=== PATIENT | male | born 1945 | race Caucasian/White ===

== ENCOUNTER 2018-04-02 14:11 | Inpatient (IN) | payer OTHER ==
[~2018-04-02] VITALS: Ht 177.8 cm; Wt 64.9 kg
[~2018-04-02 14:11] MED LIST: ALBUAER2 INH; ASPI-320 PO; ATOR-24 PO; CHOL100010 PO; DOCU100C31 PO; FLUT1INH INH; LEVO25TA PO; LISI-729 PO; LORA10TA6 PO; LTHSR/300 PO; MELATAB2 PO; OXYC-57 PO; PANT40TA2 PO; RXC5 PO; SENN-61 PO; TIOTCAP INH; UMEC1INH INH
[2018-04-02] MEDS ORDERED: ACETAMINOPHEN 325 MG TAB PO PRN (15:45)
[2018-04-02 15:52] VITALS: BP 163/75; PULSE 67; TEMP 36.7; O2SAT 96
[2018-04-02 16:14] LABS: BASO % 0.2 %; BASO ABS # 0.02 K/uL (0-0.2); EOS % 3.7 %; EOS ABS # 0.34 K/uL (0-0.5); HEMOGLOBIN 13.2 g/dL (14.0-18.0); IG# 0.03 K/uL (0.00-0.02); MEAN CORPUSCULAR HEMOGLOBIN 29.8 pg (25-34); MEAN CORPUSCULAR HGB CONC 33.8 g/dl (32-36); MEAN PLATELET VOLUME 8.6 fL (7.4-10.4); MONO % 9.5 %; MONO ABS # 0.88 K/uL (0.11-0.59); NEUT % 60.3 %; NEUT ABS # 5.55 K/uL (1.4-6.5); PLATELET COUNT 160 K/uL (130-400); RED CELL DISTRIBUTION WIDTH CV 15.1 % (11.5-14.5); RED CELL DISTRIBUTION WIDTH SD 48.8 fL (36.4-46.3); WHITE BLOOD COUNT 9.22 K/uL (4.8-10.8)
[2018-04-02 16:35] VITALS: BP 163/75; PULSE 74; TEMP 36.3; O2SAT 96; Ht 177.8 cm; Wt 64.9 kg
[2018-04-02 16:41] LABS: ALBUMIN 3.6 gm/dl (3.4-5.0); ALT/SGPT 16 U/L (12-78); AST/SGOT 16 U/L (15-37); BLOOD UREA NITROGEN 19 mg/dl (7-18); CALCIUM 9.8 mg/dl (8.5-10.1); CARBON DIOXIDE 25 mmol/L (21-32); CREATININE 0.74 mg/dl (0.60-1.40); GLUCOSE 88 mg/dl (70-99); POTASSIUM 4.6 mmol/L (3.5-5.1); SODIUM 139 mmol/L (136-145)
[2018-04-02 16:46] LABS: ALKALINE PHOSPHATASE 101 U/L (45-117); TOTAL PROTEIN 7.2 gm/dl (6.4-8.2)
[2018-04-02] MEDS ORDERED: OMEP20TA PO (17:46)
[2018-04-02] MEDS ORDERED: AMLO2.5T PO ×2 (17:46)
--- NOTE | 2018-04-02 18:05 | DIAGNOSTIC IMAGING REPORT ---
CHEST ONE VIEW PORTABLE CLINICAL HISTORY: 72 years-old Male presenting with cough. TECHNIQUE: Portable upright AP view of the chest was obtained. COMPARISON: 07/06/2016. FINDINGS: Right subclavian pacer with leads to the right atrium and right ventricular apex. A spinal stimulator terminates at the level of the mid thoracic spine. Surgical clips project over the epigastrium. Atherosclerosis of aortic arch. Cardiac silhouette normal in size. Mild pulmonary vascular prominence. Heterogeneity of lung parenchyma with slight increased density at the right paramediastinal apex, similar to prior. No new focal infiltrate. No large effusion or pneumothorax. Continued worsening of advanced destructive or degenerative changes of the right glenohumeral joint. Upper abdomen normal. IMPRESSION: 1. Heterogeneity of lung parenchyma could suggest underlying emphysema. Vague focal infiltrate at the right paramediastinal apex may relate to overlapping bony structures as this is fairly similar to the prior exam. No new focal infiltrate to suggest acute cardiopulmonary disease. 2. Continued worsening of advanced destructive or degenerative changes of the right glenohumeral joint. Electronically signed by: Laith Schmidt M.D. 04/02/2018 6:03 PM Dictated Date/Time: 04/02/2018 6:00 PM
[2018-04-02] MEDS ORDERED: ENOXAPARIN 40 MG/0.4 ML SYR SQ ONE (19:00)
--- NOTE | 2018-04-02 19:09 | History and Physical ---
History & Physical Date & Time of Service: April 02, 2018 ~ 16:00 Chief Complaint: Chest Pain Primary Care Physician: Margoth Kaur M.D. History of Present Illness 72-year-old male who was referred for direct admission by Dr. Padron for evaluation of chest pain. Patient is difficult to obtain history from, has several complaints, and frequently mentions narcotic pain medicines during the exam. Patient had been on chronic Percocet for back pain until November of this year when he violated his pain medication management contract with [facility]. He reports that since his pain medications were discontinued he has had progressive weakness and difficulty tolerating activities of daily living. During my time with the patient, he provided me with notarized documentation threatening malpractice suits if he is not provided with narcotics. After review of patient's outpatient records, he has threatened several physicians on several occasions if narcotic prescriptions have not been provided to him. He was also given a dismissal letter from the [facility] on 03/19/18. Patient reports he has had several episodes of nausea and vomiting over the past 6 weeks. He was evaluated in the outpatient GI clinic recently and was offered an EGD however whenever he was told that this was an outpatient procedure, he refused and wanted it to be done inpatient while hospitalized. He reports a persistent productive cough for the past several months. He was given prescriptions for Levaquin however did not complete any of the courses. He reports ongoing left-sided chest pain for the past 3 weeks. He reports pain is persistent and radiates in and down the left arm. Over the past few nights, he has been awoken out of sleep at 2 AM with severe left-sided chest pain. He denies any other associated symptoms. Again, details are difficult to obtain from the patient as he frequently redirects the conversation to receive narcotic medications. Past Medical/Surgical History Medical Problems: (1) Bipolar 1 disorder Status: Chronic (2) CAD (coronary artery disease) Permanent Comment: s/p RCA stent Status: Chronic (3) Chronic back pain Status: Chronic (4) COPD (chronic obstructive pulmonary disease) Status: Chronic (5) DM type 2 (diabetes mellitus, type 2) Status: Chronic (6) Dyslipidemia Status: Chronic (7) History of hodgkin's lymphoma Permanent Comment: s/p radiation Status: Chronic (8) History of kidney cancer Permanent Comment: s/p partial nephrectomy Status: Chronic (9) Hyperparathyroidism Status: Chronic (10) Hypertension Status: Chronic (11) Hypothyroidism Status: Chronic (12) Incomplete paraplegia Status: Chronic (13) Nondisplaced bimalleolar fracture of left ankle Status: Resolved (14) Pacemaker Status: Chronic (15) Pulmonary nodule Status: Chronic (16) Radiation induced myelitis Status: Chronic (17) Symptomatic bradycardia Status: Chronic (18) Vitamin D deficiency Status: Chronic Surgical Problems: (1) H/O partial nephrectomy Status: Chronic (2) S/p abdominal wall deep tumor excision Status: Chronic (3) S/P coronary artery stent placement Permanent Comment: RCA Status: Chronic (4) S/P femoral-popliteal bypass surgery Status: Chronic (5) S/P placement of cardiac pacemaker Status: Chronic (6) S/P splenectomy Status: Chronic Family History Diabetes mellitus FATHER MOTHER FH: heart disease FATHER MOTHER Stroke FATHER Social History Smoking Status: Current Every Day Smoker Alcohol Use: occasionally (However outpatient documentation reports heavier use ) Immunizations History of Influenza Vaccine: Yes Influenza Vaccine Date: Aug 08, 2017 History of Tetanus Vaccine?: Yes Tetanus Immunization Date: Nov 11, 2010 History of Pneumococcal: Yes Pneumococcal Date: Nov 10, 2016 Allergies Coded Allergies: Shellfish (Verified Allergy, Severe, shortness of breath , 08/26/16) STATES OK WITH CT CONTRAST Sulfa Antibiotics (Verified Allergy, Intermediate, severe rash, 08/26/16) Nitroglycerin (Verified Adverse Reaction, Mild, HEADACHE, 08/26/16) Prednisone (Verified Adverse Reaction, Mild, confusion, 08/26/16) Home Medications Scheduled Amlodipine (Norvasc), 2.5 MG PO DAILY Aspirin (Aspirin EC Low Dose), 81 MG PO DAILY Atorvastatin (Lipitor), 40 MG PO QAM Cholecalciferol (Vitamin D), 1,000 INTER.UNIT PO WK Docusate Sodium (Docusate Sodium), 100 MG PO BID Levothyroxine Sodium (Synthroid), 25 MCG PO QAM [place] Carbonate ([place] Carbonate), 300 MG PO HS Loratadine (Claritin), 1 TAB PO QAM Omeprazole (Omeprazole), 1 TAB PO BID Tiotropium [place] (Spiriva Handihaler), 1 CAP INH DAILY Scheduled PRN Senna (Senokot), 1 TAB PO BID PRN for Constipation Review of Systems ROS per HPI, all other systems reviewed and negative - note that details were difficult to obtain as stated in HPI Physical Exam Vital Signs Date Time Temp Pulse Resp B/P (MAP) Pulse Ox O2 Delivery O2 Flow Rate FiO2 04/02/18 16:35 36.3 74 19 163/75 96 Room Air 04/02/18 15:52 36.7 67 17 163/75 (104) 96 Room Air General Appearance: WD/WN, no apparent distress Head: normocephalic, atraumatic Eyes: normal inspection, EOMI, sclerae normal ENT: hearing grossly normal, + pertinent finding (Mucous membranes moist) Neck: supple, no JVD, trachea midline Respiratory/Chest: no respiratory distress, + crackles (Right lung base) Cardiovascular: regular rate, rhythm, no edema, normal peripheral pulses Abdomen/GI: normal bowel sounds, non tender, soft, no organomegaly Extremities/Musculoskelatal: normal inspection, no calf tenderness, normal capillary refill Neurologic/Psych: alert, normal mood/affect, oriented x 3, + pertinent finding (Weakness BLE, chronic, history of paraplegia; no gross focal deficits noted) Skin: normal color, warm/dry Diagnostics Laboratory Results Results Past 24 Hours Test 04/02/18 15:58 04/02/18 17:50 Range/Units White Blood Count 9.22 4.8-10.8 K/uL Red Blood Count 4.43 4.7-6.1 M/uL Hemoglobin 13.2 14.0-18.0 g/dL Hematocrit 39.0 42-52 % Mean Corpuscular Volume 88.0 80-100 fL Mean Corpuscular Hemoglobin 29.8 25-34 pg Mean Corpuscular Hemoglobin Concent 33.8 32-36 g/dl Platelet Count 160 130-400 K/uL Mean Platelet Volume 8.6 7.4-10.4 fL Neutrophils (%) (Auto) 60.3 % Lymphocytes (%) (Auto) 26.0 % Monocytes (%) (Auto) 9.5 % Eosinophils (%) (Auto) 3.7 % Basophils (%) (Auto) 0.2 % Neutrophils # (Auto) 5.55 1.4-6.5 K/uL Lymphocytes # (Auto) 2.40 1.2-3.4 K/uL Monocytes # (Auto) 0.88 0.11-0.59 K/uL Eosinophils # (Auto) 0.34 0-0.5 K/uL Basophils # (Auto) 0.02 0-0.2 K/uL RDW Standard Deviation 48.8 36.4-46.3 fL RDW Coefficient of Variation 15.1 11.5-14.5 % Immature Granulocyte % (Auto) 0.3 % Immature Granulocyte # (Auto) 0.03 0.00-0.02 K/uL Sodium Level 139 136-145 mmol/L Potassium Level 4.6 3.5-5.1 mmol/L Chloride Level 108 98-107 mmol/L Carbon Dioxide Level 25 21-32 mmol/L Anion Gap 6.0 3-11 mmol/L Blood Urea Nitrogen 19 7-18 mg/dl Creatinine 0.74 0.60-1.40 mg/dl Estimated GFR () 108.3 Estimated GFR (Non- 93.5 BUN/Creatinine Ratio 25.8 10-20 Random Glucose 88 70-99 mg/dl Calcium Level 9.8 8.5-10.1 mg/dl Total Bilirubin 0.3 0.2-1 mg/dl Aspartate Amino Transf (AST/SGOT) 16 15-37 U/L Alanine Aminotransferase (ALT/SGPT) 16 12-78 U/L Alkaline Phosphatase 101 45-117 U/L Troponin I < 0.015 0-0.045 ng/ml Total Protein 7.2 6.4-8.2 gm/dl Albumin 3.6 3.4-5.0 gm/dl Globulin 3.6 2.5-4.0 gm/dl Albumin/Globulin Ratio 1.0 0.9-2 Microbiology Results 04/02/18 Gram Stain, Ordered Pending 04/02/18 Sputum Culture, Ordered Pending Diagnostic Radiology CXR IMPRESSION: 1. Heterogeneity of lung parenchyma could suggest underlying emphysema. Vague focal infiltrate at the right paramediastinal apex may relate to overlapping bony structures as this is fairly similar to the prior exam. No new focal infiltrate to suggest acute cardiopulmonary disease. 2. Continued worsening of advanced destructive or degenerative changes of the right glenohumeral joint. Impression Assessment and Plan CHEST PAIN, HISTORY CAD SA NODE DYSFUNCTION S/P PACER -Patient sent for direct admission by referral of Dr. Padron for evaluation of chest pain -History of CAD S/P RCA stent -Patient reporting persistent left-sided chest pain with radiation into the left shoulder/arm 3 weeks with acute worsening of the pain over the past 3 nights waking him from sleep -Troponin negative, cardiology planning on nuclear stress test tomorrow -Continue aspirin and statin -Pacer interrogation CHRONIC PAIN -Patient's pain medication use agreement with [facility] was violated in November 2017 and prescriptions have subsequently been stopped -Reviewed the PDMP, last prescription filled by the patient was in November 2017 -During my exam the patient, he frequently redirects the conversation to receiving pain medications and provided notarized documentation threatening malpractice lawsuits if he does not receive narcotics -As per [facility], he threatened several physicians on several occasions regarding pain medication prescriptions -During my exam, patient does not appear to be in severe pain, he is resting in bed in no acute distress, sitting up without difficulty and twisting around to reach things off the bed -Due to patient's exhibited behaviors, would like to avoid prescribing narcotic pain medications and utilize nonnarcotic options -Pain management consult -Service excellence contacted who met with the patient - please see their note for further details RECURRENT NAUSEA/VOMITING -Patient was evaluated by GI as an outpatient, and was offered an EGD however refused to have as it done as an outpatient -Will have GI evaluate the patient while admitted HISTORY RECURRENT PNEUMONIA, LIKELY ASPIRATION -No clear infiltrate on chest x-ray today -Saturating well on room air, afebrile, no leukocytosis -Will hold on antibiotics for now HYPERTENSION -Continue amlodipine COPD -No signs of acute exacerbation, continue home inhalers HYPOTHYROIDISM -Continue levothyroxine BIPOLAR -Continue lithium HISTORY OF RADIATION MYELOPATHY, PARAPLEGIA DVT PROPHYLAXIS -SQ Lovenox DISPOSITION -In my clinical judgment this beneficiary meets acute admission criteria, established by CMS, that includes being hospitalized through two midnights. 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, history of CAD status post RCA stent placement, sick sinus syndrome status post pacemaker placement Chronic low back pain, history of narcotic abuse/dependency Sent from cardiology office-as patient complained of left-sided chest pain with radiation to left arm Will be monitored in telemetry, serial cardiac marker Possible nuclear cardiac stress test in the morning Chronic narcotic pain meds dependency: Patient violated pain management contract in clinic multiple times Noted to have destructive behavior in clinic demanding for narcotic pain medications Urine tox screen ordered Pain management consulted Please refer to further documentation by Elvie WARNER for discussion of other chronic issues Vivienne Merrill MD Advanced Directives Existing Living Will: Yes 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
[2018-04-02] MEDS: TRAMADOL HCL 50 MG TAB PO PRN (19:33)
[2018-04-02] MEDS: PANTOprazole SOD 40 MG TAB PO SCH (19:35)
[2018-04-02] MEDS: DOCUSATE SODIUM 100 MG CAP PO SCH (19:36)
[2018-04-02 20:00] VITALS: O2SAT 96
[2018-04-02 20:17] VITALS: BP 160/61; PULSE 60; TEMP 36.4; O2SAT 95
[2018-04-02] MEDS: LITHIUM CARBONATE SR 300 MG TAB (LITHOBID) PO SCH (20:44)
[2018-04-02 23:58] VITALS: BP 150/69; PULSE 63; TEMP 36.7; O2SAT 95
[2018-04-03] VITALS (7 sets, daily range): BP systolic 130–159; BP diastolic 45–75; PULSE 63–77; TEMP 36.4–36.7; O2SAT 91–96
[2018-04-03] MEDS: TRAMADOL HCL 50 MG TAB PO PRN ×4 (01:24→19:43)
[2018-04-03] MEDS: LEVOTHYROXINE 25 MCG TAB PO SCH (06:14)
[2018-04-03 06:32] LABS: HEMATOCRIT 40.3 % (42-52); HEMOGLOBIN 13.2 g/dL (14.0-18.0); MEAN CELL VOLUME 88.2 fL (80-100); MEAN CORPUSCULAR HEMOGLOBIN 28.9 pg (25-34); MEAN CORPUSCULAR HGB CONC 32.8 g/dl (32-36); PLATELET COUNT 164 K/uL (130-400); RED CELL DISTRIBUTION WIDTH CV 15.2 % (11.5-14.5); RED CELL DISTRIBUTION WIDTH SD 48.6 fL (36.4-46.3); WHITE BLOOD COUNT 6.46 K/uL (4.8-10.8)
[2018-04-03 06:49] LABS: BLOOD UREA NITROGEN 18 mg/dl (7-18); CALCIUM 9.7 mg/dl (8.5-10.1); CARBON DIOXIDE 26 mmol/L (21-32); CREATININE 0.76 mg/dl (0.60-1.40); GLUCOSE 85 mg/dl (70-99); POTASSIUM 4.3 mmol/L (3.5-5.1); SODIUM 138 mmol/L (136-145)
[2018-04-03] MEDS: AMLODIPINE BESYLATE 5 MG TAB PO SCH (07:34)
[2018-04-03] MEDS: LORATADINE 10 MG TAB PO SCH (07:42)
[2018-04-03] MEDS: TIOTROPIUM BROMIDE 5 PUFF/90 MCG INH INH SCH (07:42)
[2018-04-03] MEDS: DOCUSATE SODIUM 100 MG CAP PO SCH ×2 (07:43→20:57)
[2018-04-03] MEDS: ASPIRIN 81 MG ECTAB PO SCH (07:43)
[2018-04-03] MEDS: ATORVASTATIN 40 MG TAB PO SCH (07:43)
[2018-04-03] MEDS: PANTOprazole SOD 40 MG TAB PO SCH ×2 (07:43→20:58)
[2018-04-03] MEDS: PROMETHAZINE HCL INJ 12.5 MG in SODIUM CHLORIDE 0.9% 50ML 50 ML IV PRN (08:42)
[2018-04-03] MEDS: ENOXAPARIN 40 MG/0.4 ML SYR SQ SCH (08:43)
[2018-04-03] MEDS ORDERED: CHOLECALCIFEROL 1000 INTER.UNIT TAB PO SCH (09:00)
--- NOTE | 2018-04-03 09:37 | Cardiology Follow-Up ---
Subjective Date of Service: April 03, 2018. Pt evaluation today including: conversation w/ patient, physical exam, chart review, lab review, review of studies, review of inpatient medication list History of Present Illness This morning the patient reports some mild chest and left arm discomfort. He does not describe this as pain. He states he intensity is about a 2. Over the course of the evening and some discomfort in his legs which responded to tramadol. He has continued to have nausea but no vomiting. Social History Smoking Status: Current Every Day Smoker History of Alcohol Use: Yes (snato, states 2oz qo week) Objective Vital Signs Past 12 Hours Date Time Temp Pulse Resp B/P (MAP) Pulse Ox O2 Delivery O2 Flow Rate FiO2 04/03/18 08:00 Room Air 04/03/18 07:07 36.4 63 20 159/63 (95) 93 Room Air 04/03/18 04:00 96 Room Air 04/03/18 03:22 36.6 69 16 156/75 (102) 94 Room Air 04/03/18 00:00 96 Room Air 04/02/18 23:58 36.7 63 16 150/69 (96) 95 Room Air Last Recorded Weight-Kilograms: 63.800 Physical Exam The patient is alert and oriented. Mood and affect appeared normal. He answered all questions appropriately. HEENT: Pupils are equal and reactive to light and accommodation. Extraocular movements are intact. The sclerae are anicteric. Neuro: Cranial nerves intact Neck: Patient's neck is supple. He has palpable carotid pulses bilaterally without bruits on auscultation. There is no evidence of jugular venous distention. The thyroid is not enlarged. Lungs: Some crackles at the bases bilaterally with upper airway sounds and expiratory wheezing Cardiac: Heart demonstrates a regular rate and rhythm. Normal S1 and S2. No murmurs on examination. Pulses: The patient has palpable radial pulses bilaterally that are equal in intensity Extremities: There was no evidence of hypoperfusion. There is no cyanosis or clubbing. There is no edema. Skin: I did not appreciate any rashes on examination today. Data Laboratory Results: Last 24 Hours Test 04/02/18 15:58 04/02/18 17:50 04/02/18 21:57 04/03/18 05:47 White Blood Count 9.22 K/uL 6.46 K/uL Red Blood Count 4.43 M/uL 4.57 M/uL Hemoglobin 13.2 g/dL 13.2 g/dL Hematocrit 39.0 % 40.3 % Mean Corpuscular Volume 88.0 fL 88.2 fL Mean Corpuscular Hemoglobin 29.8 pg 28.9 pg Mean Corpuscular Hemoglobin Concent 33.8 g/dl 32.8 g/dl Platelet Count 160 K/uL 164 K/uL Mean Platelet Volume 8.6 fL 9.0 fL Neutrophils (%) (Auto) 60.3 % Lymphocytes (%) (Auto) 26.0 % Monocytes (%) (Auto) 9.5 % Eosinophils (%) (Auto) 3.7 % Basophils (%) (Auto) 0.2 % Neutrophils # (Auto) 5.55 K/uL Lymphocytes # (Auto) 2.40 K/uL Monocytes # (Auto) 0.88 K/uL Eosinophils # (Auto) 0.34 K/uL Basophils # (Auto) 0.02 K/uL RDW Standard Deviation 48.8 fL 48.6 fL RDW Coefficient of Variation 15.1 % 15.2 % Immature Granulocyte % (Auto) 0.3 % Immature Granulocyte # (Auto) 0.03 K/uL Sodium Level 139 mmol/L 138 mmol/L Potassium Level 4.6 mmol/L 4.3 mmol/L Chloride Level 108 mmol/L 107 mmol/L Carbon Dioxide Level 25 mmol/L 26 mmol/L Anion Gap 6.0 mmol/L 5.0 mmol/L Blood Urea Nitrogen 19 mg/dl 18 mg/dl Creatinine 0.74 mg/dl 0.76 mg/dl Estimated GFR () 108.3 107.1 Estimated GFR (Non- 93.5 92.4 BUN/Creatinine Ratio 25.8 23.7 Random Glucose 88 mg/dl 85 mg/dl Calcium Level 9.8 mg/dl 9.7 mg/dl Total Bilirubin 0.3 mg/dl Aspartate Amino Transf (AST/SGOT) 16 U/L Alanine Aminotransferase (ALT/SGPT) 16 U/L Alkaline Phosphatase 101 U/L Troponin I < 0.015 ng/ml < 0.015 ng/ml < 0.015 ng/ml Total Protein 7.2 gm/dl Albumin 3.6 gm/dl Globulin 3.6 gm/dl Albumin/Globulin Ratio 1.0 Urine Opiates Screen NEG Urine Methadone, Qualitative NEG Urine Barbiturates NEG Urine Phencyclidine (PCP) Level NEG Ur Amphetamine/Methamphetamine NEG MDMA (Ecstasy) Screen NEG Urine Benzodiazepines Screen NEG Urine Cocaine Metabolite NEG Urine Marijuana (THC) POS Prothrombin Time 10.0 SECONDS Prothromb Time International Ratio 1.0 Est Creatinine Clear Calc Drug Dose 81.6 ml/min Imaging: Chest x-ray the time admission did not demonstrate any acute process. EKG: Av sequential pacing Telemetry reviewed: Av sequential pacing. Assessment and Plan 1. Chest pain: I think we can discount his chronic chest pain is cardiac in nature. He has had very extended episodes over several days without any elevation in his cardiac biomarkers. Alternate etiologies should be explored include include esophageal dysfunction or possibly stricture. He also has a lot of nausea and vomiting and GI etiology would be the next most likely. 2. Coronary artery disease: Patient has a history of remote stenting to the right coronary artery. We are planning on perfusion imaging today. The patient can likely be discharged from a cardiac standpoint after his perfusion imaging. We could follow up in the outpatient setting. However, if he will be requiring additional studies as an inpatient I will follow up and make recommendations based on the results. Patient should be continued on his daily aspirin and high-dose atorvastatin. 3. Bradycardia: Normally functioning dual-chamber permanent pacemaker. Patient does appear to be pacer dependent. ADDENDUM: It appears that he will not get his nuclear study today due to scheduling issues. Given his extended episodes of chest pain and normal biomarkers, his current symptoms are not related to cardiac ischemia. I think his perfusion study can be deferred to the outpatient setting unless an opening arises while he is here. He does not have any other concerning cardiac symptoms. No evidence of cardiac issues on exam. I think is is safe for him to have an endoscopy without any additional cardiac testing.
--- NOTE | 2018-04-03 10:47 | Gastrointestinal Consultation ---
Gastrointestinal Consultation Date of Consultation: April 03, 2018 Attending Physician: Dr. Merrill Consulting Physician: Dr. Cain Reason for Consultation: Nausea, vomiting History of Present Illness Patient is a 72 year old male patient of Dr. Kaur with a hx of bipolar disease, DM-2, CAD, COPD, kidney cancer, hyperparathyroidism, hypothyroidism who presented to the ED yesterday for chest pain. GI is consulted for nausea/ vomiting. Regarding the CP, cardiac markers are non elevated and EKG w/o changes. He is scheduled for a Lexiscan today. Regarding nausea/vomiting, he tells me that he has had this for about 2 months, and that he also has dysphagia. He was seen and evaluated recently in GI clinic by Raúl Michael and refused EGD at that time. He is now willing to undergo EGD. He tells me that the difficulty swallowing pills causes vomiting and that he vomited about once weekly for a few months then daily last week. He also reports several episodes of vomiting last night. He denies any hematemesis, melena or hematochezia. Hb is stable at 13. His most recent EGD was in 2012 for chest pain by Dr. Gregory with gastritis. Past Medical/Surgical History Medical Problems: (1) Bilateral lower extremity edema Status: Acute (2) Chronic pain of lower extremity Status: Acute (3) Precordial chest pain Status: Acute Past Medical History: 1. Bipolar 2. Hypothyroidism 3. Hyperparathyroidism 4. CAD S/P RCA stent 5. Chronic back pain 6. DM-2 7. Hyperlipidemia 8. COPD 9. Hodgkin's lymphoma 10. Right kidney cancer 11. Incomplete paraplegia 12. Pulmonary nodule 13. Bradycardia S/P cardiac pacemaker insertion 14. Vit D deficiency Past Surgical History: (1) H/O partial right nephrectomy (2) S/p abdominal wall deep tumor excision (3) S/P coronary artery stent placement Permanent Comment: RCA (4) S/P femoral-popliteal bypass surgery (5) S/P placement of cardiac pacemaker (6) S/P splenectomy Family History Diabetes mellitus FATHER MOTHER FH: heart disease FATHER MOTHER Stroke FATHER Social History Smoking Status: Current Every Day Smoker Housing Status: lives alone Allergies Coded Allergies: Shellfish (Verified Allergy, Severe, shortness of breath , 08/26/16) STATES OK WITH CT CONTRAST Sulfa Antibiotics (Verified Allergy, Intermediate, severe rash, 08/26/16) Nitroglycerin (Verified Adverse Reaction, Mild, HEADACHE, 08/26/16) Prednisone (Verified Adverse Reaction, Mild, confusion, 08/26/16) Current Medications Home Meds and Scripts Medications Dose Route/Sig Max Daily Dose Days Date Category Omeprazole 20 Mg Tab 1 Tab PO BID 90 04/02/18 Reported Norvasc (Amlodipine Besylate) 2.5 Mg Tab 2.5 Mg PO DAILY 04/02/18 Reported Aspirin EC Low Dose (Aspirin) 81 Mg Ectab 81 Mg PO DAILY 06/07/16 Reported Claritin (Loratadine) 10 Mg Tab 1 Tab PO QAM 30 06/07/16 Reported Senokot (Senna) 8.6 Mg Tab 1 Tab PO BID PRN 06/07/16 Reported Vitamin D (Cholecalciferol) 1,000 Inter.unit Tab 1,000 Inter.unit PO WK 02/29/16 Reported Lipitor (Atorvastatin Calcium) 40 Mg Tab 40 Mg PO QAM 02/29/16 Reported [place] Carbonate 300 Mg Cap 300 Mg PO HS 09/16/15 Reported Docusate Sodium 100 Mg Cap 100 Mg PO BID 02/12/15 Reported Spiriva Handihaler (Tiotropium [place]) 18 Mcg/ Aerp 1 Cap INH DAILY 02/12/15 Reported Synthroid (Levothyroxine Sodium) 25 Mcg Tab 25 Mcg PO QAM 02/20/13 Reported Review of Systems Constitutional: No fever, No chills, No sweats, No weight loss, No weakness Eyes: No eye pain, No redness ENT: No sore throat, No trouble swallowing, No pain on swallowing Respiratory: No cough, No wheezing, No shortness of breath, No dyspnea on exertion Cardiac: No chest pain, No edema, No palpitations Abdomen: + see HPI, + nausea, + vomiting, No pain, No diarrhea, No constipation , No GI bleeding, No dysphagia Neuro: No memory loss, No weakness, No numbness/tingling, No vertigo, No balance problems Psych: No depression symptoms, No anxiety, No insomnia Heme: No abnormal bleeding/bruising, No night sweats Endo: No excessive thirst, No excessive urination Skin: No rash, No itch, No new/changing skin lesions, No jaundice Physical Exam Date Time Temp Pulse Resp B/P (MAP) Pulse Ox O2 Delivery O2 Flow Rate FiO2 04/03/18 08:00 Room Air 04/03/18 07:07 36.4 63 20 159/63 (95) 93 Room Air 04/03/18 04:00 96 Room Air 04/03/18 03:22 36.6 69 16 156/75 (102) 94 Room Air 04/03/18 00:00 96 Room Air 04/02/18 23:58 36.7 63 16 150/69 (96) 95 Room Air 04/02/18 20:17 36.4 60 20 160/61 (94) 95 Room Air 04/02/18 20:00 96 Room Air 04/02/18 16:35 36.3 74 19 163/75 96 Room Air 04/02/18 15:52 36.7 67 17 163/75 (104) 96 Room Air General Appearance: no apparent distress Eyes: normal inspection, EOMI Neck: supple, no adenopathy, thyroid normal, no JVD Respiratory/Chest: chest non-tender, lungs clear, normal breath sounds, no accessory muscle use Cardiovascular: regular rate, rhythm, no JVD, no murmur Abdomen: normal bowel sounds, non tender, soft, no organomegaly Extremities: normal inspection, no pedal edema, normal capillary refill Neurologic/Psych: alert, normal mood/affect, oriented x 3 Skin: normal color, no jaundice, warm/dry, no rash Laboratory Results Last 24 Hours Test 04/02/18 15:58 04/02/18 17:50 04/02/18 21:57 04/03/18 05:47 White Blood Count 9.22 K/uL 6.46 K/uL Red Blood Count 4.43 M/uL 4.57 M/uL Hemoglobin 13.2 g/dL 13.2 g/dL Hematocrit 39.0 % 40.3 % Mean Corpuscular Volume 88.0 fL 88.2 fL Mean Corpuscular Hemoglobin 29.8 pg 28.9 pg Mean Corpuscular Hemoglobin Concent 33.8 g/dl 32.8 g/dl Platelet Count 160 K/uL 164 K/uL Mean Platelet Volume 8.6 fL 9.0 fL Neutrophils (%) (Auto) 60.3 % Lymphocytes (%) (Auto) 26.0 % Monocytes (%) (Auto) 9.5 % Eosinophils (%) (Auto) 3.7 % Basophils (%) (Auto) 0.2 % Neutrophils # (Auto) 5.55 K/uL Lymphocytes # (Auto) 2.40 K/uL Monocytes # (Auto) 0.88 K/uL Eosinophils # (Auto) 0.34 K/uL Basophils # (Auto) 0.02 K/uL RDW Standard Deviation 48.8 fL 48.6 fL RDW Coefficient of Variation 15.1 % 15.2 % Immature Granulocyte % (Auto) 0.3 % Immature Granulocyte # (Auto) 0.03 K/uL Sodium Level 139 mmol/L 138 mmol/L Potassium Level 4.6 mmol/L 4.3 mmol/L Chloride Level 108 mmol/L 107 mmol/L Carbon Dioxide Level 25 mmol/L 26 mmol/L Anion Gap 6.0 mmol/L 5.0 mmol/L Blood Urea Nitrogen 19 mg/dl 18 mg/dl Creatinine 0.74 mg/dl 0.76 mg/dl Estimated GFR () 108.3 107.1 Estimated GFR (Non- 93.5 92.4 BUN/Creatinine Ratio 25.8 23.7 Random Glucose 88 mg/dl 85 mg/dl Calcium Level 9.8 mg/dl 9.7 mg/dl Total Bilirubin 0.3 mg/dl Aspartate Amino Transf (AST/SGOT) 16 U/L Alanine Aminotransferase (ALT/SGPT) 16 U/L Alkaline Phosphatase 101 U/L Troponin I < 0.015 ng/ml < 0.015 ng/ml < 0.015 ng/ml Total Protein 7.2 gm/dl Albumin 3.6 gm/dl Globulin 3.6 gm/dl Albumin/Globulin Ratio 1.0 Urine Opiates Screen NEG Urine Methadone, Qualitative NEG Urine Barbiturates NEG Urine Phencyclidine (PCP) Level NEG Ur Amphetamine/Methamphetamine NEG MDMA (Ecstasy) Screen NEG Urine Benzodiazepines Screen NEG Urine Cocaine Metabolite NEG Urine Marijuana (THC) POS Prothrombin Time 10.0 SECONDS Prothromb Time International Ratio 1.0 Est Creatinine Clear Calc Drug Dose 81.6 ml/min Impression Patient is a 72 year old male with chronic pills and solids dysphagia as well as recent nausea/vomiting. Plan 1. Pt is undergoing a Lexiscan cardiac scan today, assuming no new cardiac dx's/ events, will plan for EGD tomorrow. 2. May have clear liquids po today. 3. Will continue to follow. I performed a history and physical examination of the patient, including specifically on exam: no abdominal tenderness. I have discussed the patient's management with Carina Escalera. Please refer to the [employer] note for the documented findings and plan of care. Patient with intermittent dysphagia and nausea/ vomiting, will plan for EGD if no contraindication from cardiac point.
--- NOTE | 2018-04-03 11:02 | Pain Management Consultation ---
Pain Management Consultation Date of Consultation April 03, 2018. Pain Location 1 - 2 - History Mr. Siegel is a 72-year-old white male who was admitted for evaluation of chest pain complaint. Patient has been on telemetry and followed by cardiology who has essentially ruled out cardiac etiology of his presenting complaints. Pain management was consulted due to his ongoing complaints of low back and lower extremity pain as well as his lack of opiate therapy. He has reportedly been on chronic opiate therapy in the outpatient setting up until November of this year when he reportedly violated his pain contract with [facility] and his Percocet was discontinued at that time. The patient has history of chronic low back pain and lower extremity neuropathic pain with history of radiation myelitis relating to treatment of his Hodgkin's lymphoma many years ago. He has a resultant lower extremity incomplete paraplegia. Spinal cord stimulator was implanted by Dr. Johnson in 2015. Patient reports this has diminished his pain to some degree by 25-30% but has not allowed him to discontinue narcotic therapy. He further reports symptom attic improvement through PT/OT which was discontinued by his insurance company in mid 2016. The patient has been receiving tramadol upon this admission which he reports is effective at diminishing his pain. He reported no complaints of chest or arm pain at today' s visit and reported minimal lumbosacral pain. He also reports lower extremity pain which he describes as burning in characteristic and nondermatomal patterns involving the feet ankles and pretibial locations without a true radiculopathy. The patient's pain is ranging between a 2-7/10. Patient remains fixated on receiving opiate therapy upon discharge and having a plan for discharge. He is hoping to return to [facility] for PT/OT upon discharge. The patient initially denied utilizing marijuana but whenever it was reported that marijuana was found in his urine toxicology screening he then admitted to occasional use. He is interested in pursuing medical marijuana but is not interested in giving up on his chronic use of opiate therapies. Patient has no further constitutional complaints at today's visit. Plan of care discussed with Dr. Haynes. Past Medical/Surgical History (1) S/P insertion of spinal cord stimulator (2) Chronic back pain (3) Hypertension (4) Bipolar 1 disorder (5) Radiation induced myelitis (6) Incomplete paraplegia (7) History of hodgkin's lymphoma (8) History of kidney cancer (9) Nondisplaced bimalleolar fracture of left ankle (10) DM type 2 (diabetes mellitus, type 2) (11) COPD (chronic obstructive pulmonary disease) (12) CAD (coronary artery disease) (13) Pacemaker (14) Hypothyroidism (15) Pulmonary nodule (16) Hyperparathyroidism (17) Vitamin D deficiency (18) Dyslipidemia (19) Symptomatic bradycardia (20) S/P splenectomy (21) S/P femoral-popliteal bypass surgery (22) S/P coronary artery stent placement (23) S/P placement of cardiac pacemaker (24) H/O partial nephrectomy (25) S/p abdominal wall deep tumor excision Family History Diabetes mellitus FATHER MOTHER FH: heart disease FATHER MOTHER Stroke FATHER Social / Work History Smoking Status: Current every day smoker Smokeless Tobacco Use: No Alcohol Use: occasionally (However outpatient documentation reports heavier use ) Drug Use: marijuana Marital Status: single Housing Status: lives alone Occupation: disabled Allergies Coded Allergies: Shellfish (Verified Allergy, Severe, shortness of breath , 08/26/16) STATES OK WITH CT CONTRAST Sulfa Antibiotics (Verified Allergy, Intermediate, severe rash, 08/26/16) Nitroglycerin (Verified Adverse Reaction, Mild, HEADACHE, 08/26/16) Prednisone (Verified Adverse Reaction, Mild, confusion, 08/26/16) Medications Current Inpatient Medications Medications (Trade) Dose Ordered Sig/Jessica Route Start Time Stop Time Status Last Admin Dose Admin Acetaminophen (Tylenol Tab) 650 mg Q4H PRN PO 04/02/18 15:45 05/02/18 15:44 Amlodipine Besylate (Norvasc Tab) 2.5 mg DAILY PO 04/03/18 09:00 05/03/18 08:59 04/03/18 07:34 2.5 MG Aspirin (Ecotrin Tab) 81 mg DAILY PO 04/03/18 09:00 05/03/18 08:59 Atorvastatin Calcium (Lipitor Tab) 40 mg QAM PO 04/03/18 09:00 05/03/18 08:59 Cholecalciferol (Vitamin D Tab) 1,000 inter.unit Tu@0900 PO 04/03/18 09:00 05/03/18 08:59 Docusate Sodium (coLACE CAP) 100 mg BID PO 04/02/18 21:00 05/02/18 20:59 04/02/18 19:36 100 MG Levothyroxine Sodium (Synthroid Tab) 25 mcg DAILYBB PO 04/03/18 06:00 05/03/18 05:59 04/03/18 06:14 25 MCG Loratadine (Claritin Tab) 10 mg QAM PO 04/03/18 09:00 05/03/18 08:59 Senna (Senokot Tab) 8.6 mg BID PRN PO 04/02/18 18:00 05/02/18 17:59 Tiotropium [place] (Spiriva Handihaler Inhaler) 1 puff DAILY INH 04/03/18 09:00 05/03/18 08:59 [place] Carbonate (Lithobid Tab) 300 mg HS PO 04/02/18 21:00 05/02/18 20:59 04/02/18 20:44 300 MG Pantoprazole Sodium (Protonix Tab) 40 mg BID PO 04/02/18 21:00 05/02/18 20:59 04/02/18 19:35 40 MG Tramadol HCl (Ultram Tab) 50 mg Q4H PRN PO 04/02/18 19:15 05/02/18 19:14 04/03/18 07:33 50 MG Promethazine HCl 12.5 mg/Sodium Chloride 50.5 ml @ 204 mls/hr Q6H PRN IV 04/02/18 21:00 05/02/18 20:59 04/03/18 08:42 204 MLS/HR Enoxaparin Sodium (Lovenox Inj) 40 mg Q24H SQ 04/03/18 09:00 05/03/18 08:59 04/03/18 08:43 40 MG Review of Systems Constitutional: Negative for fever, chills, sweats Eyes: Negative for eye pain, photophobia, drainage Ear, nose, mouth, throat: Negative for ear pain, nasal congestion, mouth lesions , change in voice Respiratory: Negative for wheezing, sputum production Cardiovascular: Negative for chest pain, palpitations, calf pain Gastrointestinal: Negative for abdominal pain, belching, bloating Genitourinary: Negative for dysuria, urinary incontinence, urinary urgency Musculoskeletal: Negative for deformities Integumentary: Negative for nail changes, skin yellowing, pruritus Neurological: Negative for abnormal speech, seizure type activity Physical Exam Height & Weight: Height 5 feet, 10.00 inches. Weight 63.800 (Kilograms) 140 (Pounds) Last Vital Signs Documentation Date Time Temp Pulse Resp B/P (MAP) Pulse Ox O2 Delivery O2 Flow Rate FiO2 04/03/18 08:00 Room Air 04/03/18 07:07 36.4 63 20 159/63 (95) 93 Exam: General: Patient sitting up upon entering the room in no acute distress. Speech and thought process appropriate. Mood and affect appropriate. Cognition intact. Back/spine: Well-healed midline incision at the thoracolumbar junction as well as the left superior gluteal status post spinal cord stimulator battery and lead implantation. Patient has loss of lumbar lordosis. Nontender over the midline, facet joints or SI joints provocative testing. No evidence of paravertebral, quadratus informed gluteal muscular tenderness or spasm. Range of motion limited in all planes. Lower extremities: Patient has evidence of atrophy of the lower extremity musculature. Sensation is intact to sharp and dull without focal deficit. EHL and dorsiflexion testing absent bilaterally. Plantar flexion and knee flexion/extension 3/5. Hip flexion/extension 4/5. Flaccid paralysis of lower extremities with no contraction or spasticity. No evidence of hyperpathia, hyperalgesia, or allodynic response. Neurologic: Cranial nerves grossly intact. Ambulation via motorized chair. Laboratory Laboratory Results (Last CBC): 04/03/18 05:47 Past Records Previous Records: personally reviewed by me [facility] Drug Monitoring Program Search Results: patient reviewed within database Drug Monitoring Findings: PDMP reviewed which revealed most recent prescription for oxycodone/ acetaminophen 5/325 on 11/23/2017 for #120. Evidence of 9 total prescriptions over the past 1 year with 3 prescribers and 3 pharmacies utilized. Opioid Risk Assessment Risk assessment performed, high risk identified Drug Testing Type: Urine Results Reviewed: Yes Additional Notes Positive for marijuana. Assessment 1. Chronic lumbosacral back pain with history of radiation-induced myelitis with resultant lower extremity paraplegia 2. Peripheral neuropathic pain 3. Bipolar disorder 4. Illicit marijuana use 5. History of kidney cancer status post partial nephrectomy 6. History of spinal cord stimulator implantation per Dr. Johnson 7. History of opiate dependency Recommendations 1. We discussed his history of chronic opiate use and his recent pain contract violation which led to discontinuation of his opiates. We discussed his illicit marijuana usage. We discussed medical marijuana usage which he is not currently interested in. Would not recommend resuming his opiate therapy with Percocet. Patient wishes to seek treatment in the outpatient setting with his chronic Percocet use. Patient will be provided with information for [facility] pain management as it was explained that we would not assume prescribing of his Percocet in the outpatient setting. The patient has increased risk of opiate misuse/abuse due to his comorbid medical conditions as well as his recent use of illicit marijuana. 2. Patient will continue with tramadol upon this admission for as needed breakthrough pain which he is finding to be effective without notable side effects 3. Recommend PT/OT upon discharge 4. We discussed use of Movantik therapy only if the patient is utilizing chronic opiate therapy for constipation, otherwise he should consider MiraLAX daily-twice daily 5. Patient should continue to work with behavioral health in the outpatient setting relating to his bipolar disorder 6. We will sign off on the patient at this time. Please contact pain service for further evaluation as needed.
[2018-04-03] MEDS ORDERED: REGADENOSON 0.4 MG/5 ML SYR ONE (11:29)
--- NOTE | 2018-04-03 12:50 | Progress Note ---
Medicine Progress Note Date & Time of Visit: April 03, 2018 at 12:50. Objective Last 8 Hrs Date Time Temp Pulse Resp B/P (MAP) Pulse Ox O2 Delivery O2 Flow Rate FiO2 04/03/18 12:17 36.5 64 18 155/56 (89) 94 Room Air 04/03/18 12:00 Room Air 04/03/18 08:00 Room Air 04/03/18 07:07 36.4 63 20 159/63 (95) 93 Room Air Physical Exam: General-[] Eyes-[] ENT-[] Neck-[] Lungs-[] Heart-[] Abdomen-[] Extremities-[] Neuro-[] Laboratory Results: Last 24 Hours Test 04/02/18 15:58 04/02/18 17:50 04/02/18 21:57 04/03/18 05:47 White Blood Count 9.22 K/uL 6.46 K/uL Red Blood Count 4.43 M/uL 4.57 M/uL Hemoglobin 13.2 g/dL 13.2 g/dL Hematocrit 39.0 % 40.3 % Mean Corpuscular Volume 88.0 fL 88.2 fL Mean Corpuscular Hemoglobin 29.8 pg 28.9 pg Mean Corpuscular Hemoglobin Concent 33.8 g/dl 32.8 g/dl Platelet Count 160 K/uL 164 K/uL Mean Platelet Volume 8.6 fL 9.0 fL Neutrophils (%) (Auto) 60.3 % Lymphocytes (%) (Auto) 26.0 % Monocytes (%) (Auto) 9.5 % Eosinophils (%) (Auto) 3.7 % Basophils (%) (Auto) 0.2 % Neutrophils # (Auto) 5.55 K/uL Lymphocytes # (Auto) 2.40 K/uL Monocytes # (Auto) 0.88 K/uL Eosinophils # (Auto) 0.34 K/uL Basophils # (Auto) 0.02 K/uL RDW Standard Deviation 48.8 fL 48.6 fL RDW Coefficient of Variation 15.1 % 15.2 % Immature Granulocyte % (Auto) 0.3 % Immature Granulocyte # (Auto) 0.03 K/uL Sodium Level 139 mmol/L 138 mmol/L Potassium Level 4.6 mmol/L 4.3 mmol/L Chloride Level 108 mmol/L 107 mmol/L Carbon Dioxide Level 25 mmol/L 26 mmol/L Anion Gap 6.0 mmol/L 5.0 mmol/L Blood Urea Nitrogen 19 mg/dl 18 mg/dl Creatinine 0.74 mg/dl 0.76 mg/dl Estimated GFR () 108.3 107.1 Estimated GFR (Non- 93.5 92.4 BUN/Creatinine Ratio 25.8 23.7 Random Glucose 88 mg/dl 85 mg/dl Calcium Level 9.8 mg/dl 9.7 mg/dl Total Bilirubin 0.3 mg/dl Aspartate Amino Transf (AST/SGOT) 16 U/L Alanine Aminotransferase (ALT/SGPT) 16 U/L Alkaline Phosphatase 101 U/L Troponin I < 0.015 ng/ml < 0.015 ng/ml < 0.015 ng/ml Total Protein 7.2 gm/dl Albumin 3.6 gm/dl Globulin 3.6 gm/dl Albumin/Globulin Ratio 1.0 Urine Opiates Screen NEG Urine Methadone, Qualitative NEG Urine Barbiturates NEG Urine Phencyclidine (PCP) Level NEG Ur Amphetamine/Methamphetamine NEG MDMA (Ecstasy) Screen NEG Urine Benzodiazepines Screen NEG Urine Cocaine Metabolite NEG Urine Marijuana (THC) POS Prothrombin Time 10.0 SECONDS Prothromb Time International Ratio 1.0 Est Creatinine Clear Calc Drug Dose 81.6 ml/min Assessment & Plan Current Inpatient Medications: Current Inpatient Medications Medications (Trade) Dose Ordered Sig/Jessica Route Start Time Stop Time Status Last Admin Dose Admin Acetaminophen (Tylenol Tab) 650 mg Q4H PRN PO 04/02/18 15:45 05/02/18 15:44 Amlodipine Besylate (Norvasc Tab) 2.5 mg DAILY PO 04/03/18 09:00 05/03/18 08:59 04/03/18 07:34 2.5 MG Aspirin (Ecotrin Tab) 81 mg DAILY PO 04/03/18 09:00 05/03/18 08:59 Atorvastatin Calcium (Lipitor Tab) 40 mg QAM PO 04/03/18 09:00 05/03/18 08:59 Cholecalciferol (Vitamin D Tab) 1,000 inter.unit Tu@0900 PO 04/03/18 09:00 05/03/18 08:59 Docusate Sodium (coLACE CAP) 100 mg BID PO 04/02/18 21:00 05/02/18 20:59 5/14/18 19:36 100 MG Levothyroxine Sodium (Synthroid Tab) 25 mcg DAILYBB PO 04/03/18 06:00 05/03/18 05:59 04/03/18 06:14 25 MCG Loratadine (Claritin Tab) 10 mg QAM PO 04/03/18 09:00 05/03/18 08:59 Senna (Senokot Tab) 8.6 mg BID PRN PO 04/02/18 18:00 05/02/18 17:59 Tiotropium [place] (Spiriva Handihaler Inhaler) 1 puff DAILY INH 04/03/18 09:00 05/03/18 08:59 [place] Carbonate (Lithobid Tab) 300 mg HS PO 04/02/18 21:00 05/02/18 20:59 04/02/18 20:44 300 MG Pantoprazole Sodium (Protonix Tab) 40 mg BID PO 04/02/18 21:00 05/02/18 20:59 04/02/18 19:35 40 MG Tramadol HCl (Ultram Tab) 50 mg Q4H PRN PO 04/02/18 19:15 05/02/18 19:14 04/03/18 07:33 50 MG Promethazine HCl 12.5 mg/Sodium Chloride 50.5 ml @ 204 mls/hr Q6H PRN IV 04/02/18 21:00 05/02/18 20:59 04/03/18 08:42 204 MLS/HR Enoxaparin Sodium (Lovenox Inj) 40 mg Q24H SQ 04/03/18 09:00 05/03/18 08:59 04/03/18 08:43 40 MG
--- NOTE | 2018-04-03 13:53 | DIAGNOSTIC IMAGING REPORT ---
(CHEST) THORAX WITHOUT CLINICAL HISTORY: 72 years-old Male presenting with r/o pneumonia. TECHNIQUE: Multidetector CT imaging of the chest was performed without the use of intravenous contrast. IV contrast: None. A dose lowering technique was used consistent with the principles of ALARA (as low as reasonably achievable). COMPARISON: Chest x-ray performed the previous day and chest CT from 09/17/2015. CT DOSE (mGy.cm): The estimated cumulative dose is 379.75 mGy.cm. 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 Spinal stimulator projects over the mid thoracic spine. Multiple surgical clips project over the epigastrium. Cholecystectomy clips noted. Numerous external leads overlie the chest. On soft tissue windows, exophytic nodule arising from the posterior right thyroid lobe is similar to prior exam. Right subclavian pacer with leads to the right atrial appendage and right ventricular apex. 2 ventricular leads may be present. No axillary, supraclavicular, or mediastinal lymphadenopathy. Evaluation of the laurence limited without intravenous contrast. Atherosclerosis of the aorta. Multichamber enlargement of the heart. Coronary artery, aortic valve, and mitral annular calcification. No pericardial or pleural effusion. Numerous surgical clips noted in the upper abdomen. Splenosis evident as on prior exam. Normal liver density. On lung windows, extensive dependent reticulation and minimal solid subpleural consolidation. Mild bronchial wall thickening and trace subsegmental bronchial debris primarily in the lower lobes. Respiratory motion artifact slightly degrades evaluation of lung parenchyma. Mosaic attenuation suggest small airways disease. No other focal infiltrate or nodule. Debris noted in the lower trachea. On bone windows, degenerative changes of the spine. Advanced degenerative changes of the right glenohumeral joint. Several loose bodies also suggested. A spinal stimulator enters the spinal canal at the level of T9-10 and terminates at T7. Exaggerated thoracic kyphosis without a focal compression deformity. IMPRESSION: 1. Bronchial wall thickening and dependent changes with debris in the lower trachea could suggest chronic aspiration. No focal infiltrate to suggest pneumonia. Specifically, no infiltrate at the right apex. The appearance on radiograph is felt to represent overlapping osseous structures. 2. Small airways disease. 3. Advanced degenerative changes of the right glenohumeral joint. 4. Additional findings as above. Electronically signed by: Laith Schmidt M.D. 04/03/2018 1:52 PM Dictated Date/Time: 04/03/2018 1:44 PM
--- NOTE | 2018-04-03 16:18 | Progress Note ---
Medicine Progress Note Date & Time of Visit: April 03, 2018 at 15:55. Subjective Seen sitting up in bed comfortable, in good spirits Patient's nurse Demi at the bedside throughout encounter States that his back pain radiating to the legs is improved today with as needed tramadol Denies active chest pain, shortness of breath, dizziness, radiating pain to the left arm No other symptoms Objective Last 8 Hrs Date Time Temp Pulse Resp B/P (MAP) Pulse Ox O2 Delivery O2 Flow Rate FiO2 04/03/18 12:17 36.5 64 18 155/56 (89) 94 Room Air 04/03/18 12:00 Room Air 04/03/18 08:00 Room Air Physical Exam: General-oriented 3, speaking in sentences, no accessory muscle Head- atraumatic Eyes- PERRL, EOMI, anicteric ENT- oropharynx clear Neck- supple, no JVD, no adenopathy, no thyromegaly Lungs- clear breath sounds bilaterally no rales wheezes Heart- regular rhythm; no murmur, normal rate Abdomen- normal bowel sounds, soft, nontender, nondistended Extremities- Positive signs of atrophy, Flex posturing no pretibial edema, no calf tenderness; peripheral pulses intact Neuro- alert, oriented x 3; no gross focal neurologic deficits Skin- warm & dry Psych-mood is essentially normal, normal affect Laboratory Results: Last 24 Hours Test 04/02/18 15:58 04/02/18 17:50 04/02/18 21:57 04/03/18 05:47 White Blood Count 9.22 K/uL 6.46 K/uL Red Blood Count 4.43 M/uL 4.57 M/uL Hemoglobin 13.2 g/dL 13.2 g/dL Hematocrit 39.0 % 40.3 % Mean Corpuscular Volume 88.0 fL 88.2 fL Mean Corpuscular Hemoglobin 29.8 pg 28.9 pg Mean Corpuscular Hemoglobin Concent 33.8 g/dl 32.8 g/dl Platelet Count 160 K/uL 164 K/uL Mean Platelet Volume 8.6 fL 9.0 fL Neutrophils (%) (Auto) 60.3 % Lymphocytes (%) (Auto) 26.0 % Monocytes (%) (Auto) 9.5 % Eosinophils (%) (Auto) 3.7 % Basophils (%) (Auto) 0.2 % Neutrophils # (Auto) 5.55 K/uL Lymphocytes # (Auto) 2.40 K/uL Monocytes # (Auto) 0.88 K/uL Eosinophils # (Auto) 0.34 K/uL Basophils # (Auto) 0.02 K/uL RDW Standard Deviation 48.8 fL 48.6 fL RDW Coefficient of Variation 15.1 % 15.2 % Immature Granulocyte % (Auto) 0.3 % Immature Granulocyte # (Auto) 0.03 K/uL Sodium Level 139 mmol/L 138 mmol/L Potassium Level 4.6 mmol/L 4.3 mmol/L Chloride Level 108 mmol/L 107 mmol/L Carbon Dioxide Level 25 mmol/L 26 mmol/L Anion Gap 6.0 mmol/L 5.0 mmol/L Blood Urea Nitrogen 19 mg/dl 18 mg/dl Creatinine 0.74 mg/dl 0.76 mg/dl Estimated GFR () 108.3 107.1 Estimated GFR (Non- 93.5 92.4 BUN/Creatinine Ratio 25.8 23.7 Random Glucose 88 mg/dl 85 mg/dl Calcium Level 9.8 mg/dl 9.7 mg/dl Total Bilirubin 0.3 mg/dl Aspartate Amino Transf (AST/SGOT) 16 U/L Alanine Aminotransferase (ALT/SGPT) 16 U/L Alkaline Phosphatase 101 U/L Troponin I < 0.015 ng/ml < 0.015 ng/ml < 0.015 ng/ml Total Protein 7.2 gm/dl Albumin 3.6 gm/dl Globulin 3.6 gm/dl Albumin/Globulin Ratio 1.0 Urine Opiates Screen NEG Urine Methadone, Qualitative NEG Urine Barbiturates NEG Urine Phencyclidine (PCP) Level NEG Ur Amphetamine/Methamphetamine NEG MDMA (Ecstasy) Screen NEG Urine Benzodiazepines Screen NEG Urine Cocaine Metabolite NEG Urine Marijuana (THC) POS Prothrombin Time 10.0 SECONDS Prothromb Time International Ratio 1.0 Est Creatinine Clear Calc Drug Dose 81.6 ml/min Assessment & Plan 72-year-old male with history of coronary artery disease status post RCA stent, sick sinus syndrome status post pacemaker, Diabetes, hypertension, COPD, chronic back pain, bipolar disorder, radiation myelitis presenting with chest pain CHEST PAIN, HISTORY CAD SA NODE DYSFUNCTION S/P PACER -Patient sent for direct admission by referral of Dr. Padron for evaluation of chest pain -History of CAD S/P RCA stent -Patient reporting persistent left-sided chest pain with radiation into the left shoulder/arm 3 weeks with acute worsening of the pain over the past 3 nights waking him from sleep --Troponin 3 negative EKG no signs of acute ischemia --Evaluated by Dr. Padron from cardiology service Plan for Lexiscan stress test tomorrow DYSPHAGIA, NAUSEA VOMITING --GI was consulted --Plan for EGD tomorrow R/O ASPIRATION -- CT chest: Bronchial wall thickening and dependent changes with debris in the lower trachea could suggest chronic aspiration. No focal infiltrate to suggest pneumonia. Specifically, no infiltrate at the right apex. The appearance on radiograph is felt to represent overlapping osseous structures. -- Speech Therapy evaluation pending CHRONIC BACK PAIN --Evaluated by pain management service --Patient reports significant improvement with tramadol prn He is agreeable and comfortable to continue with tramadol as needed at this time He is not requesting for any additional pain medications -- will continue to monitor HYPERTENSION -Continue amlodipine COPD -No signs of acute exacerbation, continue home inhalers HYPOTHYROIDISM -Continue levothyroxine BIPOLAR -Continued on lithium - received message from patient's RN, he is requesting for a Psych consult: "he needs someone to talk to about his emotions" HISTORY OF RADIATION MYELOPATHY, PARAPLEGIA - will consult PT/OT evaluation DVT PROPHYLAXIS -SQ Lovenox DISPOSITION lives alone at home case management on board Current Inpatient Medications: Current Inpatient Medications Medications (Trade) Dose Ordered Sig/Jessica Route Start Time Stop Time Status Last Admin Dose Admin Acetaminophen (Tylenol Tab) 650 mg Q4H PRN PO 04/02/18 15:45 05/02/18 15:44 Amlodipine Besylate (Norvasc Tab) 2.5 mg DAILY PO 04/03/18 09:00 05/03/18 08:59 04/03/18 07:34 2.5 MG Aspirin (Ecotrin Tab) 81 mg DAILY PO 04/03/18 09:00 05/03/18 08:59 Atorvastatin Calcium (Lipitor Tab) 40 mg QAM PO 04/03/18 09:00 05/03/18 08:59 Cholecalciferol (Vitamin D Tab) 1,000 inter.unit Tu@0900 PO 04/03/18 09:00 05/03/18 08:59 Docusate Sodium (coLACE CAP) 100 mg BID PO 04/02/18 21:00 05/02/18 20:59 04/02/18 19:36 100 MG Levothyroxine Sodium (Synthroid Tab) 25 mcg DAILYBB PO 04/03/18 06:00 05/03/18 05:59 04/03/18 06:14 25 MCG Loratadine (Claritin Tab) 10 mg QAM PO 04/03/18 09:00 05/03/18 08:59 Senna (Senokot Tab) 8.6 mg BID PRN PO 04/02/18 18:00 05/02/18 17:59 Tiotropium [place] (Spiriva Handihaler Inhaler) 1 puff DAILY INH 04/03/18 09:00 05/03/18 08:59 [place] Carbonate (Lithobid Tab) 300 mg HS PO 04/02/18 21:00 05/02/18 20:59 04/02/18 20:44 300 MG Pantoprazole Sodium (Protonix Tab) 40 mg BID PO 04/02/18 21:00 05/02/18 20:59 04/02/18 19:35 40 MG Tramadol HCl (Ultram Tab) 50 mg Q4H PRN PO 04/02/18 19:15 05/02/18 19:14 04/03/18 14:07 50 MG Promethazine HCl 12.5 mg/Sodium Chloride 50.5 ml @ 204 mls/hr Q6H PRN IV 04/02/18 21:00 05/02/18 20:59 04/03/18 08:42 204 MLS/HR Enoxaparin Sodium (Lovenox Inj) 40 mg Q24H SQ 04/03/18 09:00 05/03/18 08:59 04/03/18 08:43 40 MG
[2018-04-03] MEDS: LITHIUM CARBONATE SR 300 MG TAB (LITHOBID) PO SCH (20:57)
[2018-04-04] VITALS (8 sets, daily range): BP systolic 116–164; BP diastolic 62–87; PULSE 65–89; TEMP 36.4–36.7; O2SAT 90–95
[2018-04-04] MEDS: TRAMADOL HCL 50 MG TAB PO PRN ×4 (01:05→21:28)
[2018-04-04] MEDS: LEVOTHYROXINE 25 MCG TAB PO SCH (06:05)
[2018-04-04] MEDS: LORATADINE 10 MG TAB PO SCH (07:27)
[2018-04-04] MEDS: ASPIRIN 81 MG ECTAB PO SCH (07:29)
[2018-04-04] MEDS: AMLODIPINE BESYLATE 5 MG TAB PO SCH (07:29)
[2018-04-04] MEDS: ATORVASTATIN 40 MG TAB PO SCH (07:29)
[2018-04-04] MEDS: SENNA 8.6 MG TAB PO PRN (07:29)
[2018-04-04] MEDS: ENOXAPARIN 40 MG/0.4 ML SYR SQ SCH (07:30)
[2018-04-04] MEDS: PANTOprazole SOD 40 MG TAB PO SCH ×2 (07:30→19:23)
[2018-04-04] MEDS: TIOTROPIUM BROMIDE 5 PUFF/90 MCG INH INH SCH (07:31)
[2018-04-04] MEDS: DOCUSATE SODIUM 100 MG CAP PO SCH ×2 (08:10→19:23)
--- NOTE | 2018-04-04 09:06 | Cardiology Follow-Up ---
Subjective Date of Service: April 04, 2018. Pt evaluation today including: conversation w/ patient, physical exam, chart review, lab review, review of studies, review of inpatient medication list History of Present Illness This morning the patient complains of worsening leg and back discomfort. He is requesting morphine. He is not currently aware of any significant chest discomfort. Denies breathing difficulty currently. Social History Smoking Status: Current Every Day Smoker History of Alcohol Use: Yes (bourbon, states 2oz qo week) Review of Systems Respiratory: No cough, No wheezing, No shortness of breath, No dyspnea on exertion Cardiac: No chest pain, No edema, No palpitations Objective Vital Signs Past 12 Hours Date Time Temp Pulse Resp B/P (MAP) Pulse Ox O2 Delivery O2 Flow Rate FiO2 04/04/18 07:59 36.5 69 20 142/62 (88) 94 Room Air 04/04/18 04:00 Room Air 04/04/18 03:51 36.4 77 18 164/72 (102) 95 Room Air 04/04/18 00:05 36.6 66 18 134/62 (86) 91 Room Air 04/04/18 00:00 Room Air Last Recorded Weight-Kilograms: 64.900 Physical Exam The patient is alert and oriented. Mood and affect appeared normal. He answered all questions appropriately. HEENT: Pupils are equal and reactive to light and accommodation. Extraocular movements are intact. The sclerae are anicteric. Neuro: Cranial nerves intact Neck: Patient's neck is supple. He has palpable carotid pulses bilaterally without bruits on auscultation. There is no evidence of jugular venous distention. The thyroid is not enlarged. Lungs: Some crackles at the bases bilaterally with upper airway sounds and expiratory wheezing Cardiac: Heart demonstrates a regular rate and rhythm. Normal S1 and S2. No murmurs on examination. Pulses: The patient has palpable radial pulses bilaterally that are equal in intensity Extremities: There was no evidence of hypoperfusion. There is no cyanosis or clubbing. There is no edema. Skin: I did not appreciate any rashes on examination today. Data Imaging: CT scan demonstrated some tracheal debris but no infiltrates in the lungs. EKG: Sequential AV pacing Telemetry reviewed: No arrhythmia Assessment and Plan 1. Chest pain: Noncardiac. Perhaps his GI evaluation will shed some light on a possible etiology. 2. Coronary artery disease: Will continue high-dose atorvastatin and daily aspirin. Patient can have his cardiac perfusion study done electively. If it a requires some additional hospitalization perhaps a can be finished as an inpatient, otherwise scheduling as an outpatient is acceptable. 3. Bradycardia: Normally functioning dual-chamber permanent pacemaker. Patient does appear to be pacer dependent. At this point I will sign off. If the patient does undergo his perfusion study while an inpatient on a follow-up on those results. Otherwise, the patient can be scheduled for another routine cardiology appointment in our clinic after discharge. Thank you.
[2018-04-04] MEDS ORDERED: HYDROCODONE/ACETAMIN 5/325MG TAB PO ONE ×2 (09:30→19:00)
--- NOTE | 2018-04-04 12:23 | Psychiatric Consultation ---
Consultation Date of Consultation April 04, 2018. Identifying Data 72 y/o male with bipolar disorder and multiple medical problems who is admitted for chest pain. Psychiatry was consulted after he requested "somebody to talk to about my emotions." Chief Complaint "I wanted to see a therapist while I was here ". History of Present Illness Mr. Siegel was admitted 2 days ago after he presented with chest pain, and cardiology, GI, and pain management has been consulted. A cardiac etiology has been ruled out, and he is scheduled for endoscopy today. Pain management saw him due to ongoing complaints of low back and extremity pain and requests for opiates. He had previously been on chronic opiate therapy, but violated his pain contract with [facility] and Percocet was discontinued. He has been fixated on his demands for opiates during this hospitalization, and also wants to pursue medical marijuana. He admits to smoking marijuana multiple times a day, and his drug screen was positive. On admission, he was continued on his home dose of lithium, and psychiatry was consulted after he requested to talk to somebody. He was seen by the liaison nurse last evening, and was focused on his desire for narcotic pain medication. On my assessment, he is upset that the hospital does not have a therapist whom he can see for therapy while he is here , opining at length about the history of psychiatric treatment and his dissatisfaction with the current state of affairs. He states his mood has been well controlled on his lithium, has not had a mood episode in years, and does not wish to have any changes made to his medications. He denies symptoms of psychosis, SI, HI. He states that he has "emotional problems" which she feels are due to his stage of life and worsening health. He would like to work with a therapist who is "a millenial woman familiar with the Eriksson stages of life. " He has not looked into his options for therapy in the area, notes that he has been in therapy multiple times before but cannot recall any of the therapists names, and has not discussed this with his outpatient psychiatrist, Dr. Hahn. He says he was hoping that he could see a therapist here who would then transition him to a therapist that fits his preferences, and repeatedly expressed his dissatisfaction when told we do not have a therapy service. He talks at length about his knowledge and the fact that he disagrees with many medical and psychiatric professionals about various things. He complains that the hospital "is a hostile environment for people who have emotions," but then stated that he hopes to stay here "as long as possible." He says he has determined that he requires inpatient rehab at [facility] after discharge, although per case management notes, he appears to be at baseline level of functioning, and it may not be medically necessary. Past Psychiatric History Current OP Treatment: psychiatrist (Dr. Hahn) Prior OP Treatment: therapist (Has not been in therapy for about 2 years) Prior Psych Hospitalizations: none Access to a Gun: No Suicide Attempts: No Past Medical/Surgical History (1) Chronic back pain (2) Hypertension (3) Radiation induced myelitis (4) Incomplete paraplegia (5) History of hodgkin's lymphoma (6) History of kidney cancer (7) DM type 2 (diabetes mellitus, type 2) (8) COPD (chronic obstructive pulmonary disease) (9) CAD (coronary artery disease) (10) Pacemaker (11) Hypothyroidism (12) Pulmonary nodule (13) Hyperparathyroidism (14) Dyslipidemia (15) Vitamin D deficiency (16) Cannabis abuse Allergies Allergies: Coded Allergies: Shellfish (Verified Allergy, Severe, shortness of breath , 08/26/16) STATES OK WITH CT CONTRAST Sulfa Antibiotics (Verified Allergy, Intermediate, severe rash, 08/26/16) Nitroglycerin (Verified Adverse Reaction, Mild, HEADACHE, 08/26/16) Prednisone (Verified Adverse Reaction, Mild, confusion, 08/26/16) Home Medications Scheduled Amlodipine (Norvasc), 2.5 MG PO DAILY Aspirin (Aspirin EC Low Dose), 81 MG PO DAILY Atorvastatin (Lipitor), 40 MG PO QAM Cholecalciferol (Vitamin D), 1,000 INTER.UNIT PO WK Docusate Sodium (Docusate Sodium), 100 MG PO BID Levothyroxine Sodium (Synthroid), 25 MCG PO QAM [place] Carbonate ([place] Carbonate), 300 MG PO HS Loratadine (Claritin), 1 TAB PO QAM Omeprazole (Omeprazole), 1 TAB PO BID Tiotropium [place] (Spiriva Handihaler), 1 CAP INH DAILY Scheduled PRN Senna (Senokot), 1 TAB PO BID PRN for Constipation Family History Diabetes mellitus FATHER MOTHER FH: heart disease FATHER MOTHER Stroke FATHER Alcohol Use Alcohol Use In Past 12 Months: Yes (Reports occasional use) Smoking Use Smoking Status: Current Every Day Smoker Substance History Smokes marijuana multiple times daily. Personal History Lives in: Lives alone in [facility] Children: 2 daughters Additional Comments: Sister lives in [facility], daughters live in [place] and [place]. Has support from a friend, Scarlett, and a caregiver, Martha. Review of Systems 10 systems reviewed; positive for chronic pain, others negative except as stated above. Examination Vital Signs Vital Signs Past 12 Hours Date Time Temp Pulse Resp B/P (MAP) Pulse Ox O2 Delivery O2 Flow Rate FiO2 04/04/18 11:55 36.8 80 18 115/78 (90) 94 Room Air 04/04/18 08:00 94 Room Air 04/04/18 07:59 36.5 69 20 142/62 (88) 94 Room Air 04/04/18 04:00 Room Air 04/04/18 03:51 36.4 77 18 164/72 (102) 95 Room Air 04/04/18 00:05 36.6 66 18 134/62 (86) 91 Room Air Mental Examination During interview pt is: alert and oriented, cooperative Appearance: appropriately dressed (Hospital gown), disheveled (Bushy vidal hair and zuniga, glasses, malodorous), other (Seated in a motorized wheelchair in his hospital room) Eye contact is: good Motor behavior is: no abnormal motor movements Speech: normal in rate, rhythm & volume Affect: irritable, other (Entitled) Mood is: other ("I been dealing with a lot of health issues.") Thought process: tangential Thought content: reality based without delusions (Grandiose, frequently points out his extensive knowledge and disagreements with professionals) Suicidal thought are: denied Homicidal thoughts are: denied Hallucinations: denies auditory, denies visual Cognition: memory grossly intact, attention grossly intact, language grossly intact Intelligence estimated to be: average Insight: fair Judgement: fair Impression / Recommendations Impression 72-year-old male who lives alone in [facility], has multiple medical problems and bipolar disorder treated by Dr. Hahn, and is admitted for workup of chest pain. We are consulted his he requested to talk to somebody, and on assessment, clarifies that he wanted to see a therapist while here in the hospital. He is also hoping to establish care with an outpatient therapist , and has some very specific requests about the type of therapist he would see. He was encouraged to explore his options, and to discuss this with his outpatient psychiatrist as well. He states his mood has been stable, and does not want his medications adjusted at this time. There also appears to be significant Speed II component. Risk Factors Assessment Male: Yes : Yes /single/: Yes Higher / Fall in social status: No Access to guns: No Health problems: Yes Mental Health Diagnoses: Yes Substance use disorders: Yes Previous attempt: No Previous psychiatric stay: No Hopelessness: No Protective Factors Assessment : No Responsible for young children: No Employed: No Stable relationships: Yes Supportive family: Yes Good rapport with provider: Yes Absence of risk factors above: Yes (No current mood or psychotic symptoms, no suicidal or homicidal thoughts.) Recommendations (1) Bipolar 1 disorder -Continue home dose of lithium, and coordinate care with Dr. Hahn. We will send our records, and ensure timely follow-up. -Patient was encouraged to pursue individual therapy as an outpatient if he so desires. (2) Cannabis abuse -Patient has been educated about the risks of ongoing substance abuse, but does not wish to change his behavior. Agree with avoiding controlled substances given the high risk with his age and medical comorbidities, as well as substance abuse. (3) Personality disorder Patient is demonstrating some narcissistic and histrionic traits.
--- NOTE | 2018-04-04 13:05 | History & Physical Bridge Note ---
H&P Re-Evaluation Bridge Note: I have examined the patient, reviewed the History & Physical and in the interval since the performance of the History & Physical I have noted the following changes of clinical significance: No changes noted
[2018-04-04] MEDS ORDERED: LIDOCAINE HCL 2% 2 ML VIAL (20MG/ML) ONE (13:58)
[2018-04-04] MEDS ORDERED: PHENYLEPHRINE 100MCG/ML 5ML SYR ONE (13:58)
[2018-04-04] MEDS ORDERED: PROPOFOL IV EMULSION 10 MG/ML 20 ML VIAL ONE (13:58)
--- NOTE | 2018-04-04 14:20 | GI REPORT ---
Patient Name: Guillermo Siegel Procedure Date: 04/04/2018 1:36 PM Date of : 1945 Admit Type: Inpatient Age: 72 Gender: Male Attending MD: Ernie Cain MD Procedure: Upper GI endoscopy Providers: Ernie Cain MD Referring MD: Al Padron Md, [facility] Indications: Dysphagia Medicines: Monitored Anesthesia Care Complications: No immediate complications. Estimated Blood Loss: Estimated blood loss: none. Procedure: Pre-Anesthesia Assessment: - Prior to the procedure, a History and Physical was performed, and patient medications and allergies were reviewed. The patient is competent. The risks and benefits of the procedure and the sedation options and risks were discussed with the patient. All questions were answered and informed consent was obtained. Patient identification and proposed procedure were verified by the physician and the nurse in the procedure room. Mental Status Examination: alert and oriented. Airway Examination: normal oropharyngeal airway and neck mobility. Respiratory Examination: clear to auscultation. CV Examination: normal. ASA Grade Assessment: III - A patient with severe systemic disease. After reviewing the risks and benefits, the patient was deemed in satisfactory condition to undergo the procedure. The anesthesia plan was to use monitored anesthesia care (MAC). Immediately prior to administration of medications, the patient was re-assessed for adequacy to receive sedatives. The heart rate, respiratory rate, oxygen saturations, blood pressure, adequacy of pulmonary ventilation, and response to care were monitored throughout the procedure. The physical status of the patient was re-assessed after the procedure. After obtaining informed consent, the endoscope was passed under direct vision. Throughout the procedure, the patient's blood pressure, pulse, and oxygen saturations were monitored continuously. The scope was introduced through the mouth, and advanced to the second part of duodenum. The upper GI endoscopy was accomplished without difficulty. The patient tolerated the procedure well. Findings: The Z-line was found 40 cm from the incisors. One benign-appearing, intrinsic stenosis was found at the gastroesophageal junction. This stenosis was mildly severe and. The stenosis was traversed. A TTS dilator was passed through the scope. Dilation with a 15-16.5-18 mm balloon dilator was performed to 18 mm. Mucosal changes including longitudinal furrows, small-caliber esophagus and white plaques were found in the middle third of the esophagus and in the lower third of the esophagus. Biopsies were obtained from the proximal and distal esophagus with cold forceps for histology of suspected eosinophilic esophagitis. Verification of patient identification for the specimen was done by the physician and nurse using the patient's name and date. The entire examined stomach was normal. Biopsies were taken with a cold forceps for Helicobacter pylori testing. The duodenal bulb and second portion of the duodenum were normal. Impression: - Z-line, 40 cm from the incisors. - Benign-appearing esophageal stenosis. Dilated. - Esophageal mucosal changes suspicious for eosinophilic esophagitis. Biopsied. - Normal stomach. Biopsied. - Normal duodenal bulb and second portion of the duodenum. Recommendation: - Discharge patient to home. - Await pathology results. - Follow an antireflux regimen. - Use Prilosec (omeprazole) 40 mg PO BID for 8 weeks. - Repeat upper endoscopy in 8 weeks to check healing and for retreatment. - Recall GI if needed. - Return to referring physician. Ernie Cain MD 04/04/2018 2:20:27 PM This report has been signed electronically. Note Initiated On: 04/04/2018 1:36 PM Number of Addenda: 0 I attest to the content of the Intraoperative Record and orders documented therein, exceptions below {[id number]}
--- NOTE | 2018-04-04 14:46 | Anesthesiology Progress Note ---
Anesthesia Post Op Note Date & Time April 04, 2018 at 14:46 Vital Signs Pain Intensity: 0 Vital Signs Past 12 Hours Date Time Temp Pulse Resp B/P (MAP) Pulse Ox O2 Delivery O2 Flow Rate FiO2 04/04/18 14:35 89 20 152/83 (106) 95 Room Air 04/04/18 14:19 69 18 149/64 (92) 95 Room Air 04/04/18 14:04 65 18 94/48 (63) 94 Room Air 04/04/18 12:00 94 Room Air 04/04/18 11:55 36.8 80 18 115/78 (90) 94 Room Air 04/04/18 08:00 94 Room Air 04/04/18 07:59 36.5 69 20 142/62 (88) 94 Room Air 04/04/18 04:00 Room Air 04/04/18 03:51 36.4 77 18 164/72 (102) 95 Room Air Notes Mental Status: alert / awake / arousable, participated in evaluation Pt Amnestic to Procedure: Yes Nausea / Vomiting: adequately controlled Pain: adequately controlled Airway Patency, RR, SpO2: stable & adequate BP & HR: stable & adequate Hydration State: stable & adequate Anesthetic Complications: no major complications apparent
[2018-04-04] MEDS: LITHIUM CARBONATE SR 300 MG TAB (LITHOBID) PO SCH (21:27)
--- NOTE | 2018-04-04 22:58 | Progress Note ---
Medicine Progress Note Date & Time of Visit: April 04, 2018 at 22:52. Subjective resting in bed states back pain has increased upon waking up this morning no increased leg weakness has mild chest discomfort, no nausea no other symptoms Objective Last 8 Hrs Date Time Temp Pulse Resp B/P (MAP) Pulse Ox O2 Delivery O2 Flow Rate FiO2 04/04/18 19:54 36.7 84 18 135/70 (91) 94 Room Air 04/04/18 19:15 Room Air 04/04/18 16:00 Room Air 04/04/18 15:52 36.5 89 18 145/87 (106) 90 Room Air Physical Exam: General-oriented 3, speaking in sentences, no accessory muscle Eyes- anicteric ENT- oropharynx clear Neck- supple, no JVD Lungs- clear breath sounds BL, no rales, no wheezes Heart- regular rhythm; no murmur, normal rate Abdomen- normal bowel sounds, soft, nontender, nondistended Extremities- Positive signs of atrophy, Flexed posturing no pretibial edema, no calf tenderness; peripheral pulses intact Neuro- alert, oriented x 3; no gross focal neurologic deficits Skin- warm & dry Psych-mood is essentially normal, normal affect Assessment & Plan 72-year-old male with history of coronary artery disease status post RCA stent, sick sinus syndrome status post pacemaker, Diabetes, hypertension, COPD, chronic back pain, bipolar disorder, radiation myelitis presenting with chest pain CHEST PAIN, HISTORY CAD SA NODE DYSFUNCTION S/P PACER -Patient sent for direct admission by referral of Dr. Padron for evaluation of chest pain -History of CAD S/P RCA stent -Patient reporting persistent left-sided chest pain with radiation into the left shoulder/arm 3 weeks with acute worsening of the pain over the past 3 nights waking him from sleep --Troponin 3 negative EKG no signs of acute ischemia --Evaluated by Dr. Padron from cardiology service Plan for Lexiscan stress test as outpatient, patient requesting to have it done as inpatient will discuss with Dr. Padron tomorrow DYSPHAGIA, NAUSEA VOMITING --GI was consulted -- s/p EGD (+) esophageal stenosis, s/p Dilation (+) eosinophilic esophagitis, Protonix BID started R/O ASPIRATION -- CT chest: Bronchial wall thickening and dependent changes with debris in the lower trachea could suggest chronic aspiration. No focal infiltrate to suggest pneumonia. Specifically, no infiltrate at the right apex. The appearance on radiograph is felt to represent overlapping osseous structures. -- Speech Therapy evaluation pending CHRONIC BACK PAIN --Evaluated by pain management service --Patient reports increased back pain today PRN [place] added to Tramadol -- CT lumbar spine ordered HYPERTENSION -Continue amlodipine COPD -No signs of acute exacerbation, continue home inhalers HYPOTHYROIDISM -Continue levothyroxine BIPOLAR -Continued on lithium - received message from patient's RN, he is requesting for a Psych consult HISTORY OF RADIATION MYELOPATHY, PARAPLEGIA - will consult PT/OT evaluation DVT PROPHYLAXIS -SQ Lovenox DISPOSITION lives alone at home case management on board Current Inpatient Medications: Current Inpatient Medications Medications (Trade) Dose Ordered Sig/Jessica Route Start Time Stop Time Status Last Admin Dose Admin Acetaminophen (Tylenol Tab) 650 mg Q4H PRN PO 04/02/18 15:45 05/02/18 15:44 Amlodipine Besylate (Norvasc Tab) 2.5 mg DAILY PO 04/03/18 09:00 05/03/18 08:59 04/04/18 07:29 2.5 MG Aspirin (Ecotrin Tab) 81 mg DAILY PO 04/03/18 09:00 05/03/18 08:59 04/04/18 07:29 81 MG Atorvastatin Calcium (Lipitor Tab) 40 mg QAM PO 04/03/18 09:00 05/03/18 08:59 04/04/18 07:29 40 MG Cholecalciferol (Vitamin D Tab) 1,000 inter.unit Tu@0900 PO 04/03/18 09:00 05/03/18 08:59 Docusate Sodium (coLACE CAP) 100 mg BID PO 04/02/18 21:00 05/02/18 20:59 04/04/18 19:23 100 MG Levothyroxine Sodium (Synthroid Tab) 25 mcg DAILYBB PO 04/03/18 06:00 05/03/18 05:59 04/04/18 06:05 25 MCG Loratadine (Claritin Tab) 10 mg QAM PO 04/03/18 09:00 05/03/18 08:59 04/04/18 07:27 10 MG Senna (Senokot Tab) 8.6 mg BID PRN PO 04/02/18 18:00 05/02/18 17:59 04/04/18 07:29 8.6 MG Tiotropium [place] (Spiriva Handihaler Inhaler) 1 puff DAILY INH 04/03/18 09:00 05/03/18 08:59 04/04/18 07:31 1 PUFF [place] Carbonate (Lithobid Tab) 300 mg HS PO 04/02/18 21:00 05/02/18 20:59 04/04/18 21:27 300 MG Pantoprazole Sodium (Protonix Tab) 40 mg BID PO 04/02/18 21:00 05/02/18 20:59 04/04/18 19:23 40 MG Tramadol HCl (Ultram Tab) 50 mg Q4H PRN PO 04/02/18 19:15 05/02/18 19:14 04/04/18 21:28 50 MG Promethazine HCl 12.5 mg/Sodium Chloride 50.5 ml @ 204 mls/hr Q6H PRN IV 04/02/18 21:00 05/02/18 20:59 04/03/18 08:42 204 MLS/HR Enoxaparin Sodium (Lovenox Inj) 40 mg Q24H SQ 04/03/18 09:00 05/03/18 08:59 04/04/18 07:30 40 MG
[2018-04-05] VITALS: O2SAT 94
[2018-04-05 00:29] VITALS: BP 158/81; PULSE 84; TEMP 36.5; O2SAT 94
[2018-04-05] MEDS: TRAMADOL HCL 50 MG TAB PO PRN ×4 (01:27→19:03)
[2018-04-05] MEDS: LEVOTHYROXINE 25 MCG TAB PO SCH (06:12)
[2018-04-05 07:29] VITALS: BP 131/56; PULSE 67; TEMP 36.4; O2SAT 93
[2018-04-05 07:40] LABS: CREATININE 0.83 mg/dl (0.60-1.40)
[2018-04-05] MEDS: PANTOprazole SOD 40 MG TAB PO SCH ×2 (08:14→19:39)
[2018-04-05] MEDS: ATORVASTATIN 40 MG TAB PO SCH (08:14)
[2018-04-05] MEDS: DOCUSATE SODIUM 100 MG CAP PO SCH ×2 (08:14→19:39)
[2018-04-05] MEDS: LORATADINE 10 MG TAB PO SCH (08:14)
[2018-04-05] MEDS: ASPIRIN 81 MG ECTAB PO SCH (08:15)
[2018-04-05] MEDS: AMLODIPINE BESYLATE 5 MG TAB PO SCH (08:15)
[2018-04-05] MEDS: TIOTROPIUM BROMIDE 5 PUFF/90 MCG INH INH SCH (08:17)
[2018-04-05] MEDS: ENOXAPARIN 40 MG/0.4 ML SYR SQ SCH (08:19)
[2018-04-05] MEDS: PROMETHAZINE HCL INJ 12.5 MG in SODIUM CHLORIDE 0.9% 50ML 50 ML IV PRN ×2 (09:45→19:36)
[2018-04-05 11:26] VITALS: BP 145/68; PULSE 71; TEMP 36.6; O2SAT 96
--- NOTE | 2018-04-05 13:31 | Progress Note ---
Medicine Progress Note Date & Time of Visit: April 05, 2018 at 13:31. Subjective seen resting in bed, comfortable in good spirits back pain improving chest pain improving as well denies other symptoms expressed gratitude for the care Objective Last 8 Hrs Date Time Temp Pulse Resp B/P (MAP) Pulse Ox O2 Delivery O2 Flow Rate FiO2 04/05/18 11:26 36.6 71 18 145/68 (93) 96 Room Air 04/05/18 07:29 36.4 67 18 131/56 (81) 93 Room Air Physical Exam: General-oriented 3, speaking in sentences, no accessory muscle Eyes- anicteric Neck- no JVD Lungs- clear breath sounds bilaterally Heart- regular rhythm; no murmur, normal rate Abdomen- normal bowel sounds, soft, nontender, nondistended Extremities- Positive signs of atrophy no pretibial edema, no calf tenderness Neuro- alert, oriented x 3; no gross focal neurologic deficits Skin- warm & dry Psych-mood is essentially normal, normal affect Laboratory Results: Last 24 Hours Test 04/05/18 06:51 Creatinine 0.83 mg/dl Est Creatinine Clear Calc Drug Dose 76.0 ml/min Estimated GFR () 103.3 Estimated GFR (Non- 89.2 Assessment & Plan 72-year-old male with history of coronary artery disease status post RCA stent, sick sinus syndrome status post pacemaker, Diabetes, hypertension, COPD, chronic back pain, bipolar disorder, radiation myelitis presenting with chest pain CHEST PAIN, HISTORY CAD SA NODE DYSFUNCTION S/P PACER -Patient sent for direct admission by referral of Dr. Padron for evaluation of chest pain -History of CAD S/P RCA stent -Patient reporting persistent left-sided chest pain with radiation into the left shoulder/arm 3 weeks with acute worsening of the pain over the past 3 nights waking him from sleep --Troponin 3 negative EKG no signs of acute ischemia - chest pain improved --Evaluated by Dr. Padron from cardiology service Plan for Lexiscan stress test as outpatient DYSPHAGIA, NAUSEA VOMITING --GI was consulted -- s/p EGD (+) esophageal stenosis, s/p Dilation (+) eosinophilic esophagitis, Protonix BID started -- tolerating diet better no nausea R/O ASPIRATION -- CT chest: Bronchial wall thickening and dependent changes with debris in the lower trachea could suggest chronic aspiration. No focal infiltrate to suggest pneumonia. Specifically, no infiltrate at the right apex. The appearance on radiograph is felt to represent overlapping osseous structures. -- Speech Therapy evaluation pending CHRONIC BACK PAIN --Evaluated by pain management service --back pain continues to improve patient reports good pain control with Tramadol -- CT lumbar spine noted HYPERTENSION -Continue amlodipine COPD -No signs of acute exacerbation, continue home inhalers HYPOTHYROIDISM -Continue levothyroxine BIPOLAR -Continued on lithium - patient requested Psych consult awaiting recommendations HISTORY OF RADIATION MYELOPATHY, PARAPLEGIA - PT/OT ordered DVT PROPHYLAXIS -SQ Lovenox DISPOSITION lives alone at home case management on board if not accepted for Rehab, patient ok to be discharged home with PT/OT case discussed with patient at length at around 130 and 630pm he is agreeable and comfortable with plan of care all questions answered he expressed desire to be discharged in the morning Current Inpatient Medications: Current Inpatient Medications Medications (Trade) Dose Ordered Sig/Jessica Route Start Time Stop Time Status Last Admin Dose Admin Acetaminophen (Tylenol Tab) 650 mg Q4H PRN PO 04/02/18 15:45 05/02/18 15:44 Amlodipine Besylate (Norvasc Tab) 2.5 mg DAILY PO 04/03/18 09:00 05/03/18 08:59 04/05/18 08:15 2.5 MG Aspirin (Ecotrin Tab) 81 mg DAILY PO 04/03/18 09:00 05/03/18 08:59 04/05/18 08:15 81 MG Atorvastatin Calcium (Lipitor Tab) 40 mg QAM PO 04/03/18 09:00 05/03/18 08:59 04/05/18 08:14 40 MG Cholecalciferol (Vitamin D Tab) 1,000 inter.unit Tu@0900 PO 04/03/18 09:00 05/03/18 08:59 Docusate Sodium (coLACE CAP) 100 mg BID PO 04/02/18 21:00 05/02/18 20:59 04/05/18 08:14 100 MG Levothyroxine Sodium (Synthroid Tab) 25 mcg DAILYBB PO 04/03/18 06:00 05/03/18 05:59 04/05/18 06:12 25 MCG Loratadine (Claritin Tab) 10 mg QAM PO 04/03/18 09:00 05/03/18 08:59 04/05/18 08:14 10 MG Senna (Senokot Tab) 8.6 mg BID PRN PO 04/02/18 18:00 05/02/18 17:59 04/04/18 07:29 8.6 MG Tiotropium [place] (Spiriva Handihaler Inhaler) 1 puff DAILY INH 04/03/18 09:00 05/03/18 08:59 04/05/18 08:17 1 PUFF [place] Carbonate (Lithobid Tab) 300 mg HS PO 04/02/18 21:00 05/02/18 20:59 04/04/18 21:27 300 MG Pantoprazole Sodium (Protonix Tab) 40 mg BID PO 04/02/18 21:00 05/02/18 20:59 04/05/18 08:14 40 MG Tramadol HCl (Ultram Tab) 50 mg Q4H PRN PO 04/02/18 19:15 05/02/18 19:14 04/05/18 12:57 50 MG Promethazine HCl 12.5 mg/Sodium Chloride 50.5 ml @ 204 mls/hr Q6H PRN IV 04/02/18 21:00 05/02/18 20:59 04/05/18 09:45 204 MLS/HR Enoxaparin Sodium (Lovenox Inj) 40 mg Q24H SQ 04/03/18 09:00 05/03/18 08:59 04/05/18 08:19 40 MG
[2018-04-05 15:58] VITALS: BP 139/71; PULSE 83; TEMP 36.7; O2SAT 94
--- NOTE | 2018-04-05 16:01 | DIAGNOSTIC IMAGING REPORT ---
LUMBAR SPINE WITHOUT CLINICAL HISTORY: 72 years-old Male presenting with low back pain, history of radiation induced myelitis. TECHNIQUE: Multidetector CT of the lumbar spine was performed without the use of intravenous contrast. IV contrast: None. A dose lowering technique was used consistent with the principles of ALARA (as low as reasonably achievable). COMPARISON: Plain radiographs from 2016. CT DOSE (mGy.cm): The estimated cumulative dose is 585.60 mGycm. FINDINGS: [employer]age [employer] topogram: A pacer lead projects over the epigastrium. Numerous surgical clips evident in the abdomen and projecting over the left femoral head. Minimal right lateral translation of L3 on L4. There is also 3 mm of grade 1 anterolisthesis of L3 on L4. This level demonstrates significant intervertebral disc height loss. Apart from this level, vertebral bodies maintain normal height and alignment. Osteopenia present. Intervertebral discs apart from this level are maintained. Limited evaluation of the soft tissue structures demonstrate spinal canal narrowing secondary to anterolisthesis at L3-4. There is also resulting right greater than left neural foraminal narrowing at L3-4. Lesser degrees of neural foraminal narrowing suggested at L4-5. Bilateral pars defects of L5 noted about significant anterolisthesis of L5 on S1. No acute fracture or acute subluxation. Paraspinal soft tissues demonstrate a metallic foreign body within multilobular abnormal soft tissue located in the left suprarenal fossa. There is an adjacent normal appearing left adrenal gland. Several additional metallic foreign bodies degrade evaluation of the upper abdomen. Multiple linear metallic foreign bodies likely surgical clips in the region of the right renal pelvis. Atherosclerosis of the abdominal aorta. A catheter or lead is visualized in the subcutaneous tissue of the left flank. IMPRESSION: 1. Degenerative changes at L3-4 with resultant spinal canal and neural foraminal narrowing. This results in large part from anterolisthesis of L3 on L4. Findings have worsened since prior radiographs in 2016. 2. Bilateral pars defects of L5 without significant anterolisthesis of L5 on S1. 3. No acute osseous injury. 4. Osteopenia. 5. Abnormal soft tissue in the left suprarenal fossa. This is better visualized on most recent chest CT as splenosis. Electronically signed by: Laith Schmidt M.D. 04/05/2018 4:00 PM Dictated Date/Time: 04/05/2018 3:53 PM
[2018-04-05] MEDS: SENNA 8.6 MG TAB PO PRN (19:39)
[2018-04-05] MEDS ORDERED: POLYETHYLENE (MIRALAX) 17 GM PACK PO PRN (20:00)
[2018-04-05 20:04] VITALS: BP 118/70; PULSE 81; TEMP 36.7; O2SAT 95
[2018-04-05] MEDS: LITHIUM CARBONATE SR 300 MG TAB (LITHOBID) PO SCH (21:12)
[2018-04-05] MEDS: MAGNESIUM HYDROXIDE SUSP 30 ML UDC PO PRN (21:13)
[2018-04-06] VITALS: BP 151/69; PULSE 65; TEMP 36.7; O2SAT 94
[2018-04-06] MEDS: MAGNESIUM HYDROXIDE SUSP 30 ML UDC PO PRN (05:11)
[2018-04-06] MEDS: TRAMADOL HCL 50 MG TAB PO PRN ×2 (05:11→09:21)
[2018-04-06] MEDS: LEVOTHYROXINE 25 MCG TAB PO SCH (05:13)
[2018-04-06 05:16] VITALS: BP 157/81; PULSE 69; TEMP 36.5; O2SAT 90
[2018-04-06 07:47] VITALS: BP 132/74; PULSE 85; TEMP 36.9; O2SAT 94
[2018-04-06] MEDS: DOCUSATE SODIUM 100 MG CAP PO SCH (07:59)
[2018-04-06] MEDS: ATORVASTATIN 40 MG TAB PO SCH (07:59)
[2018-04-06] MEDS: LORATADINE 10 MG TAB PO SCH (07:59)
[2018-04-06] MEDS: SENNA 8.6 MG TAB PO PRN (07:59)
[2018-04-06] MEDS: ASPIRIN 81 MG ECTAB PO SCH (08:00)
[2018-04-06] MEDS: TIOTROPIUM BROMIDE 5 PUFF/90 MCG INH INH SCH (08:00)
[2018-04-06] MEDS: PANTOprazole SOD 40 MG TAB PO SCH (08:00)
[2018-04-06] MEDS: AMLODIPINE BESYLATE 5 MG TAB PO SCH (08:00)
[2018-04-06] MEDS: ENOXAPARIN 40 MG/0.4 ML SYR SQ SCH (08:01)
--- NOTE | 2018-04-06 09:27 | Progress Note ---
Medicine Progress Note Date & Time of Visit: April 06, 2018 at 09:10. Subjective seen sitting in his scooter, comfortable, in good spirits friend Martha at bedside during encounter states he continues to feel better back pain and leg pain continues to improve chest pain also improved, tolerating diet well- no coughing/choking with solids/ liquids no nausea denies other symptoms states he is ready and would like to be discharged today Objective Last 8 Hrs Date Time Temp Pulse Resp B/P (MAP) Pulse Ox O2 Delivery O2 Flow Rate FiO2 04/06/18 07:47 36.9 85 20 132/74 (93) 94 Room Air 04/06/18 05:16 36.5 69 20 157/81 (106) 90 Room Air Physical Exam: General-oriented 3, speaking in sentences, no accessory muscle Eyes- anicteric Neck- no JVD Lungs- clear breath sounds bilaterally, no wheeze, no rales Heart- regular rhythm; no murmur, normal rate Abdomen- normal bowel sounds, soft, nontender, nondistended Extremities- Positive signs of atrophy no pretibial edema, no calf tenderness Neuro- alert, oriented x 3; no gross focal neurologic deficits Skin- warm & dry Psych-mood is essentially normal, normal affect Assessment & Plan 72-year-old male with history of coronary artery disease status post RCA stent, sick sinus syndrome status post pacemaker, Diabetes, hypertension, COPD, chronic back pain, bipolar disorder, radiation myelitis presenting with chest pain CHEST PAIN, HISTORY CAD SA NODE DYSFUNCTION S/P PACER -Patient sent for direct admission by referral of Dr. Padron for evaluation of chest pain -History of CAD S/P RCA stent -Patient reporting persistent left-sided chest pain with radiation into the left shoulder/arm 3 weeks with acute worsening of the pain over the past 3 nights waking him from sleep --Troponin 3 negative EKG no signs of acute ischemia - chest pain much better --Evaluated by Dr. Padron from cardiology service Plan for Lexiscan stress test as outpatient Ff up with Dr. Padron DYSPHAGIA, NAUSEA VOMITING --GI was consulted -- s/p EGD 04/04/18 Dr. Maldonado (+) esophageal stenosis, s/p Dilation (+) eosinophilic esophagitis, Protonix BID started Impression: - Z-line, 40 cm from the incisors. - Benign-appearing esophageal stenosis. Dilated. - Esophageal mucosal changes suspicious for eosinophilic esophagitis. Biopsied. - Normal stomach. Biopsied. - Normal duodenal bulb and second portion of the duodenum. Recommendation: - Discharge patient to home. - Await pathology results. - Follow an antireflux regimen. - Use Prilosec (omeprazole) 40 mg PO BID for 8 weeks. - Repeat upper endoscopy in 8 weeks to check healing and for retreatment. - Recall GI if needed. - Return to referring physician. -- Pathology: A. ESOPHAGUS (BIOPSY): 1. MILD, FOCAL, PREDOMINANTLY CHRONIC GASTRITIS IS SEEN. 2. ATROPHY AND INTESTINAL METAPLASIA ARE NOT SEEN. 3. HELICOBACTER PYLORI ORGANISMS ARE NOT SEEN ON AN IMMUNOHISTOCHEMICAL STAIN. 4. NO TUMOR IS SEEN. B. ESOPHAGUS, LOWER (BIOPSY): 1. MILD, FOCAL CHRONIC ESOPHAGITIS WITH FOCAL PARAKERATOSIS IS SEEN. 2. BASAL ZONE HYPERPLASIA, MULTIPLE HIGH-RIDING VESSELS, AND SCATTERED INTRAEPITHELIAL INFLAMMATORY CELLS SUGGESTIVE OF CHRONIC REFLUX ESOPHAGITIS ARE SEEN. 3. GLANDULAR EPITHELIUM IS NOT SEEN ON LEVELS X3. 4. DYSPLASIA AND CARCINOMA ARE NOT SEEN WELL. C. ESOPHAGUS, MID (BIOPSY): 1. MODERATE, DIFFUSE CHRONIC ESOPHAGITIS WITH DIFFUSE PARAKERATOSIS IS SEEN. 2. THE LACK OF DIFFUSE BASAL ZONE HYPERPLASIA PRECLUDES A DIAGNOSIS OF CHRONIC REFLUX ESOPHAGITIS AT THIS SITE. 3. A PAS STAIN FAILS TO REVEAL FUNGAL HYPHAE AND SPORES. 4. GLANDULAR EPITHELIUM IS NOT SEEN ON LEVELS X3. 5. DYSPLASIA AND CARCINOMA ARE NOT SEEN. 6. PLEASE SEE COMMENT. COMMENT: The presence of diffuse parakeratosis in part B of this case is of interest. Esophageal parakeratosis can present endoscopically as a white flat elevated lesion of the mucosa in the mid esophagus. As such, correlation with the endoscopic findings in this case is suggested in this regard. -- tolerating diet well, chest pain much better no nausea -- GI recommendations: Prilosec 40mg BID x 8 weeks ff up with GI in 8 weeks for repeat EGD POSSIBLE CHRONIC ASPIRATION -- from Esophageal Stenosis? Esophagitis? Reflux? -- CT chest: Bronchial wall thickening and dependent changes with debris in the lower trachea could suggest chronic aspiration. No focal infiltrate to suggest pneumonia. Specifically, no infiltrate at the right apex. The appearance on radiograph is felt to represent overlapping osseous structures. -- no nausea, cough, choking after EGD s/p Dilation of Stenosis patient prefers Speech therapy evaluation as outpatient CHRONIC BACK PAIN, DEGENERATIVE CHANGE/FORAMINAL NARROWING L3-L4 --Evaluated by pain management service VANDANA Dave patient has been discharged from [facility] PCP due to pain medication agreement violation --back pain continues to improve patient reports good pain control with Tramadol -- CT lumbar spine: IMPRESSION: 1. Degenerative changes at L3-4 with resultant spinal canal and neural foraminal narrowing. This results in large part from anterolisthesis of L3 on L4. Findings have worsened since prior radiographs in 2016. 2. Bilateral pars defects of L5 without significant anterolisthesis of L5 on S1. 3. No acute osseous injury. 4. Osteopenia. 5. Abnormal soft tissue in the left suprarenal fossa. This is better visualized on most recent chest CT as splenosis. -- complete CT scan report in the discharge summary -- pain adequately controlled with Tramadol PRN discussed with VANDANA Santana, recommend Tramadol PRN for the short term, will prescribe 1-2 day supply, patient very much agreeable to this plan Miralax daily -- continue outpatient follow up with PCP/Pain Specialist for pain management Pain Mgt [facility] recommends referral to [facility] may benefit referral to Ortho spine HYPERTENSION -Continue amlodipine COPD -No signs of acute exacerbation, continue home inhalers HYPOTHYROIDISM -Continue levothyroxine BIPOLAR -Continued on lithium - patient requested Psych consult--> they recommend to continue [place] dose, ff up closely as outpatient counselled on cannabis usage risks i strongly advised him not to use any illicit substances, no smoking/alcohol HISTORY OF RADIATION MYELOPATHY, PARAPLEGIA - PT/OT ordered, recommend to return home DVT PROPHYLAXIS -SQ Lovenox DISPOSITION d/c home ff up with PCP 04/06/18 ff up with [employer] Dr. Padron for Lexiscan stress test plan of care discussed extensively with patient and his friend he is very much agreeable and comfortable with plan of care all questions answered he expressed gratitude for the care he has received while admitted Current Inpatient Medications: Current Inpatient Medications Medications (Trade) Dose Ordered Sig/Jessica Route Start Time Stop Time Status Last Admin Dose Admin Acetaminophen (Tylenol Tab) 650 mg Q4H PRN PO 04/02/18 15:45 05/02/18 15:44 Amlodipine Besylate (Norvasc Tab) 2.5 mg DAILY PO 04/03/18 09:00 05/03/18 08:59 04/06/18 08:00 2.5 MG Aspirin (Ecotrin Tab) 81 mg DAILY PO 04/03/18 09:00 05/03/18 08:59 04/06/18 08:00 81 MG Atorvastatin Calcium (Lipitor Tab) 40 mg QAM PO 04/03/18 09:00 05/03/18 08:59 04/06/18 07:59 40 MG Cholecalciferol (Vitamin D Tab) 1,000 inter.unit Tu@0900 PO 04/03/18 09:00 05/03/18 08:59 Docusate Sodium (coLACE CAP) 100 mg BID PO 04/02/18 21:00 05/02/18 20:59 04/06/18 07:59 100 MG Levothyroxine Sodium (Synthroid Tab) 25 mcg DAILYBB PO 04/03/18 06:00 05/03/18 05:59 04/06/18 05:13 25 MCG Loratadine (Claritin Tab) 10 mg QAM PO 04/03/18 09:00 05/03/18 08:59 04/06/18 07:59 10 MG Senna (Senokot Tab) 8.6 mg BID PRN PO 04/02/18 18:00 05/02/18 17:59 04/06/18 07:59 8.6 MG Tiotropium [place] (Spiriva Handihaler Inhaler) 1 puff DAILY INH 04/03/18 09:00 05/03/18 08:59 04/06/18 08:00 1 PUFF [place] Carbonate (Lithobid Tab) 300 mg HS PO 04/02/18 21:00 05/02/18 20:59 04/05/18 21:12 300 MG Pantoprazole Sodium (Protonix Tab) 40 mg BID PO 04/02/18 21:00 05/02/18 20:59 04/06/18 08:00 40 MG Tramadol HCl (Ultram Tab) 50 mg Q4H PRN PO 04/02/18 19:15 05/02/18 19:14 04/06/18 05:11 50 MG Promethazine HCl 12.5 mg/Sodium Chloride 50.5 ml @ 204 mls/hr Q6H PRN IV 04/02/18 21:00 05/02/18 20:59 5/17/18 19:36 204 MLS/HR Enoxaparin Sodium (Lovenox Inj) 40 mg Q24H SQ 04/03/18 09:00 05/03/18 08:59 04/05/18 08:19 40 MG Polyethylene (Miralax Powder Packet) 17 gm DAILY PRN PO 04/05/18 20:00 05/05/18 19:59 04/06/18 08:06 17 GM Magnesium Hydroxide (Milk Of Magnesia Susp) 30 ml Q6H PRN PO 04/05/18 20:00 05/05/18 19:59 04/06/18 05:11 30 ML
[2018-04-06 09:29] VITALS: BP 132/74; PULSE 85; TEMP 36.9; O2SAT 94
[2018-04-06] MEDS ORDERED: OMEP40CA41 PO ×2 (09:32)
[2018-04-06] MEDS ORDERED: MRLP17X PO ×2 (09:32)
[2018-04-06] MEDS ORDERED: ULT50X PO ×2 (09:32→12:57)
--- NOTE | 2018-04-06 09:39 | Discharge Instructions ---
Discharge Instructions Date of Service April 06, 2018. Admission Reason for Admission: Chest Pain Discharge Discharge Diagnosis / Problem: CHEST PAIN, LIKELY FROM ESOPHAGITIS Discharge Goals Goal(s): Diagnostic testing, Therapeutic intervention Activity Recommendations Activity Limitations: as noted below (ADVANCE ACTIVITY GRADUALLY TOLERATED, NO HEAVY EXERTION) . Instructions / Follow-Up Instructions / Follow-Up PLEASE REVIEW YOUR NEW MEDICATION LIST AND FOLLOW INSTRUCTIONS CAREFULLY/TAKE ONLY DIRECTED. CALL YOUR PRIMARY CARE PHYSICIAN OR RETURN TO THE ER IMMEDIATELY IF WITH RECURRENCE/WORSENING OF SYMPTOMS. FOLLOW UP WITH PRIMARY CARE PROVIDER OF [facility]: DR. VALLECILLO / Diana JONES ON 04/06/18 AT 1:00 PM. Address: [address] [place] [id number] [address] MARTI- [employer] [facility] IN 1 WEEK FOR LEXISCAN TEST. Current Hospital Diet Patient's current hospital diet: AHA Diet (Heart Healthy) Discharge Diet Recommended Diet: AHA Diet (Heart Healthy) Procedures Procedures Performed: Esophagogastroduodenoscopy W/Biopsies and Balloon Dilitation Pending Studies Studies pending at discharge: no Medical Emergencies . Who to Call and When: Medical Emergencies: If at any time you feel your situation is an emergency, please call 911 immediately. . Non-Emergent Contact Non-Emergency issues call your: Primary Care Provider, Draw Furnace Tender Call Non-Emergent contact if: you have a fever, your pain is not controlled, your pain is worsening, you have any medication questions . . "Provider Documentation" section prepared by Matthew Beckman. . [place] Drug Monitoring Program Search Results: patient reviewed within database, see additional documentation (SEE DISCHARGE SUMMARY)
--- NOTE | 2018-04-06 10:01 | Discharge Summary ---
Discharge Summary Date of Service April 06, 2018. Discharge Summary Admission Date: April 02, 2018 at 15:44 Discharge Date: April 06, 2018 Discharge Disposition: Home Principal Diagnosis: CHEST PAIN LIKELY RELATED TO ESOPHAGITIS/ESOPHAGEAL STENOSIS Secondary Diagnoses/Problems: PLEASE REFER TO HOSPITAL COURSE BELOW. Procedures: EGD REPORT DICTATED BY: Ernie Cain M.D. Patient Name: Guillermo Siegel Procedure Date: 04/04/2018 1:36 PM Date of : 1945 Admit Type: Inpatient Age: 72 Gender: Male Attending MD: Ernie Cain MD Procedure: Upper GI endoscopy Providers: Ernie Cain MD Referring MD: Al Padron Md, [facility] Indications: Dysphagia Medicines: Monitored Anesthesia Care Complications: No immediate complications. Estimated Blood Loss: Estimated blood loss: none. Procedure: Pre-Anesthesia Assessment: - Prior to the procedure, a History and Physical was performed, and patient medications and allergies were reviewed. The patient is competent. The risks and benefits of the procedure and the sedation options and risks were discussed with the patient. All questions were answered and informed consent was obtained. Patient identification and proposed procedure were verified by the physician and the nurse in the procedure room. Mental Status Examination: alert and oriented. Airway Examination: normal oropharyngeal airway and neck mobility. Respiratory Examination: clear to auscultation. CV Examination: normal. ASA Grade Assessment: III - A patient with severe systemic disease. After reviewing the risks and benefits, the patient was deemed in satisfactory condition to undergo the procedure. The anesthesia plan was to use monitored anesthesia care (MAC). Immediately prior to administration of medications, the patient was re-assessed for adequacy to receive sedatives. The heart rate, respiratory rate, oxygen saturations, blood pressure, adequacy of pulmonary ventilation, and response to care were monitored throughout the procedure. The physical status of the patient was re-assessed after the procedure. After obtaining informed consent, the endoscope was passed under direct vision. Throughout the procedure, the patient's blood pressure, pulse, and oxygen saturations were monitored continuously. The scope was introduced through the mouth, and advanced to the second part of duodenum. The upper GI endoscopy was accomplished without difficulty. The patient tolerated the procedure well. Findings: The Z-line was found 40 cm from the incisors. One benign-appearing, intrinsic stenosis was found at the gastroesophageal junction. This stenosis was mildly severe and. The stenosis was traversed. A TTS dilator was passed through the scope. Dilation with a 15-16.5-18 mm balloon dilator was performed to 18 mm. Mucosal changes including longitudinal furrows, small-caliber esophagus and white plaques were found in the middle third of the esophagus and in the lower third of the esophagus. Biopsies were obtained from the proximal and distal esophagus with cold forceps for histology of suspected eosinophilic esophagitis. Verification of patient identification for the specimen was done by the physician and nurse using the patient's name and date. The entire examined stomach was normal. Biopsies were taken with a cold forceps for Helicobacter pylori testing. The duodenal bulb and second portion of the duodenum were normal. Impression: - Z-line, 40 cm from the incisors. - Benign-appearing esophageal stenosis. Dilated. - Esophageal mucosal changes suspicious for eosinophilic esophagitis. Biopsied. - Normal stomach. Biopsied. - Normal duodenal bulb and second portion of the duodenum. Recommendation: - Discharge patient to home. - Await pathology results. - Follow an antireflux regimen. - Use Prilosec (omeprazole) 40 mg PO BID for 8 weeks. - Repeat upper endoscopy in 8 weeks to check healing and for retreatment. - Recall GI if needed. - Return to referring physician. Ernie Cain MD 04/04/2018 2:20:27 PM This report has been signed electronically. Note Initiated On: 04/04/2018 1:36 PM LUMBAR SPINE WITHOUT CLINICAL HISTORY: 72 years-old Male presenting with low back pain, history of radiation induced myelitis. TECHNIQUE: Multidetector CT of the lumbar spine was performed without the use of intravenous contrast. IV contrast: None. A dose lowering technique was used consistent with the principles of ALARA (as low as reasonably achievable). COMPARISON: Plain radiographs from 2016. CT DOSE (mGy.cm): The estimated cumulative dose is 585.60 mGycm. FINDINGS: Ad Compositor topogram: A pacer lead projects over the epigastrium. Numerous surgical clips evident in the abdomen and projecting over the left femoral head. Minimal right lateral translation of L3 on L4. There is also 3 mm of grade 1 anterolisthesis of L3 on L4. This level demonstrates significant intervertebral disc height loss. Apart from this level, vertebral bodies maintain normal height and alignment. Osteopenia present. Intervertebral discs apart from this level are maintained. Limited evaluation of the soft tissue structures demonstrate spinal canal narrowing secondary to anterolisthesis at L3-4. There is also resulting right greater than left neural foraminal narrowing at L3-4. Lesser degrees of neural foraminal narrowing suggested at L4-5. Bilateral pars defects of L5 noted about significant anterolisthesis of L5 on S1. No acute fracture or acute subluxation. Paraspinal soft tissues demonstrate a metallic foreign body within multilobular abnormal soft tissue located in the left suprarenal fossa. There is an adjacent normal appearing left adrenal gland. Several additional metallic foreign bodies degrade evaluation of the upper abdomen. Multiple linear metallic foreign bodies likely surgical clips in the region of the right renal pelvis. Atherosclerosis of the abdominal aorta. A catheter or lead is visualized in the subcutaneous tissue of the left flank. IMPRESSION: 1. Degenerative changes at L3-4 with resultant spinal canal and neural foraminal narrowing. This results in large part from anterolisthesis of L3 on L4. Findings have worsened since prior radiographs in 2016. 2. Bilateral pars defects of L5 without significant anterolisthesis of L5 on S1. 3. No acute osseous injury. 4. Osteopenia. 5. Abnormal soft tissue in the left suprarenal fossa. This is better visualized on most recent chest CT as splenosis. Electronically signed by: Laith Schmidt M.D. 04/05/2018 4:00 PM Dictated Date/Time: 04/05/2018 3:53 PM (CHEST) THORAX WITHOUT CLINICAL HISTORY: 72 years-old Male presenting with r/o pneumonia. TECHNIQUE: Multidetector CT imaging of the chest was performed without the use of intravenous contrast. IV contrast: None. A dose lowering technique was used consistent with the principles of ALARA (as low as reasonably achievable). COMPARISON: Chest x-ray performed the previous day and chest CT from 09/17/2015. CT DOSE (mGy.cm): The estimated cumulative dose is 379.75 mGy.cm. FINDINGS: Ad Compositor topogram: Right subclavian pacer with leads to the right atrium and right ventricular apex. Spinal stimulator projects over the mid thoracic spine. Multiple surgical clips project over the epigastrium. Cholecystectomy clips noted. Numerous external leads overlie the chest. On soft tissue windows, exophytic nodule arising from the posterior right thyroid lobe is similar to prior exam. Right subclavian pacer with leads to the right atrial appendage and right ventricular apex. 2 ventricular leads may be present. No axillary, supraclavicular, or mediastinal lymphadenopathy. Evaluation of the laurence limited without intravenous contrast. Atherosclerosis of the aorta. Multichamber enlargement of the heart. Coronary artery, aortic valve, and mitral annular calcification. No pericardial or pleural effusion. Numerous surgical clips noted in the upper abdomen. Splenosis evident as on prior exam. Normal liver density. On lung windows, extensive dependent reticulation and minimal solid subpleural consolidation. Mild bronchial wall thickening and trace subsegmental bronchial debris primarily in the lower lobes. Respiratory motion artifact slightly degrades evaluation of lung parenchyma. Mosaic attenuation suggest small airways disease. No other focal infiltrate or nodule. Debris noted in the lower trachea. On bone windows, degenerative changes of the spine. Advanced degenerative changes of the right glenohumeral joint. Several loose bodies also suggested. A spinal stimulator enters the spinal canal at the level of T9-10 and terminates at T7. Exaggerated thoracic kyphosis without a focal compression deformity. IMPRESSION: 1. Bronchial wall thickening and dependent changes with debris in the lower trachea could suggest chronic aspiration. No focal infiltrate to suggest pneumonia. Specifically, no infiltrate at the right apex. The appearance on radiograph is felt to represent overlapping osseous structures. 2. Small airways disease. 3. Advanced degenerative changes of the right glenohumeral joint. 4. Additional findings as above. Electronically signed by: Laith Schmidt M.D. 04/03/2018 1:52 PM Dictated Date/Time: 04/03/2018 1:44 PM Consultations: TANK INSULATOR RUBBER DR. PADRON, PAIN MANAGEMENT VANDANA FERRARA, GI DR. BRUSH/VANDANA SEAY Pending Studies/Follow-Up: PLEASE REFER TO HOSPITAL COURSE BELOW. Medication Reconciliation New Medications: Omeprazole (Prilosec) 40 Mg Cap 40 MG PO BID for 60 Days, #120 CAP 0 Refills TAKE AT LEAST 30 MINUTES BEFORE MEAL (BREAKFAST AND DINNER) Polyethylene (Miralax) 17 Gm Pow 17 GM PO DAILY PRN for Constipation for 10 Days, #10 UNIT 1 Refill Tramadol HCl (Tramadol HCl) 50 Mg Tab 50 MG PO Q6H PRN for Pain, #6 TAB 0 Refills Continued Medications: Amlodipine (Norvasc) 2.5 Mg Tab 2.5 MG PO DAILY, TAB Aspirin (Aspirin EC Low Dose) 81 Mg Ectab 81 MG PO DAILY Atorvastatin (Lipitor) 40 Mg Tab 40 MG PO QAM, TAB Cholecalciferol (Vitamin D) 1,000 Inter.unit Tab 1000 INTER.UNIT PO WK, TAB Docusate Sodium (Docusate Sodium) 100 Mg Cap 100 MG PO BID Levothyroxine Sodium (Synthroid) 25 Mcg Tab 25 MCG PO QAM, TAB Obetz Carbonate (Obetz Carbonate) 300 Mg Cap 300 MG PO HS, CAP Loratadine (Claritin) 10 Mg Tab 1 TAB PO QAM for 30 Days, #30 TAB 5 Refills Senna (Senokot) 8.6 Mg Tab 1 TAB PO BID PRN for Constipation, TAB Tiotropium Oxford (Spiriva Handihaler) 18 Mcg/ Aerp 1 CAP INH DAILY, INHALER Discontinued Medications: Omeprazole (Omeprazole) 20 Mg Tab 1 TAB PO BID for 90 Days, #180 TAB 1 Refill Admission Information HPI (per Admitting provider): 72-year-old male who was referred for direct admission by Dr. Padron for evaluation of chest pain. Patient is difficult to obtain history from, has several complaints, and frequently mentions narcotic pain medicines during the exam. Patient had been on chronic Percocet for back pain until November of this year when he violated his pain medication management contract with [facility]. He reports that since his pain medications were discontinued he has had progressive weakness and difficulty tolerating activities of daily living. During my time with the patient, he provided me with notarized documentation threatening malpractice suits if he is not provided with narcotics. After review of patient's outpatient records, he has threatened several physicians on several occasions if narcotic prescriptions have not been provided to him. He was also given a dismissal letter from the [facility] on 03/19/18. Patient reports he has had several episodes of nausea and vomiting over the past 6 weeks. He was evaluated in the outpatient GI clinic recently and was offered an EGD however whenever he was told that this was an outpatient procedure, he refused and wanted it to be done inpatient while hospitalized. He reports a persistent productive cough for the past several months. He was given prescriptions for Levaquin however did not complete any of the courses. He reports ongoing left-sided chest pain for the past 3 weeks. He reports pain is persistent and radiates in and down the left arm. Over the past few nights, he has been awoken out of sleep at 2 AM with severe left-sided chest pain. He denies any other associated symptoms. Again, details are difficult to obtain from the patient as he frequently redirects the conversation to receive narcotic medications. Physical Exam (per Admitting): General Appearance: WD/WN, no apparent distress Head: normocephalic, atraumatic Eyes: normal inspection, EOMI, sclerae normal ENT: hearing grossly normal, + pertinent finding (Mucous membranes moist) Neck: supple, no JVD, trachea midline Respiratory/Chest: no respiratory distress, + crackles (Right lung base) Cardiovascular: regular rate, rhythm, no edema, normal peripheral pulses Abdomen/GI: normal bowel sounds, non tender, soft, no organomegaly Extremities/Musculoskelatal: normal inspection, no calf tenderness, normal capillary refill Neurologic/Psych: alert, normal mood/affect, oriented x 3, + pertinent finding (Weakness BLE, chronic, history of paraplegia; no gross focal deficits noted) Skin: normal color, warm/dry Hospital Course 72-year-old male with history of coronary artery disease status post RCA stent, sick sinus syndrome status post pacemaker, Diabetes, hypertension, COPD, chronic back pain, bipolar disorder, radiation myelitis presenting with chest pain CHEST PAIN, ACS RULED OUT HISTORY CAD SA NODE DYSFUNCTION S/P PACER -Patient sent for direct admission by referral of Dr. Padron for evaluation of chest pain -History of CAD S/P RCA stent -Patient reporting persistent left-sided chest pain with radiation into the left shoulder/arm 3 weeks with acute worsening of the pain over the past 3 nights waking him from sleep --Troponin 3 negative EKG no signs of acute ischemia - chest pain much better --Evaluated by Dr. Padron from cardiology service chest discomfort felt to be from GI etiology, as noted below Plan for Lexiscan stress test as outpatient--> addendum: received a message from Dr. Padron that there is a schedule for Lexiscan stress test on 04/09 at 730am please schedule patient for above if he is available Ff up with Dr. Padron DYSPHAGIA, NAUSEA VOMITING --GI was consulted -- s/p EGD 04/04/18 Dr. Abdulsalam (+) esophageal stenosis, s/p Dilation (+) eosinophilic esophagitis, Protonix BID started Impression: - Z-line, 40 cm from the incisors. - Benign-appearing esophageal stenosis. Dilated. - Esophageal mucosal changes suspicious for eosinophilic esophagitis. Biopsied. - Normal stomach. Biopsied. - Normal duodenal bulb and second portion of the duodenum. Recommendation: - Discharge patient to home. - Await pathology results. - Follow an antireflux regimen. - Use Prilosec (omeprazole) 40 mg PO BID for 8 weeks. - Repeat upper endoscopy in 8 weeks to check healing and for retreatment. - Recall GI if needed. - Return to referring physician. -- Pathology: A. ESOPHAGUS (BIOPSY): 1. MILD, FOCAL, PREDOMINANTLY CHRONIC GASTRITIS IS SEEN. 2. ATROPHY AND INTESTINAL METAPLASIA ARE NOT SEEN. 3. HELICOBACTER PYLORI ORGANISMS ARE NOT SEEN ON AN IMMUNOHISTOCHEMICAL STAIN. 4. NO TUMOR IS SEEN. B. ESOPHAGUS, LOWER (BIOPSY): 1. MILD, FOCAL CHRONIC ESOPHAGITIS WITH FOCAL PARAKERATOSIS IS SEEN. 2. BASAL ZONE HYPERPLASIA, MULTIPLE HIGH-RIDING VESSELS, AND SCATTERED INTRAEPITHELIAL INFLAMMATORY CELLS SUGGESTIVE OF CHRONIC REFLUX ESOPHAGITIS ARE SEEN. 3. GLANDULAR EPITHELIUM IS NOT SEEN ON LEVELS X3. 4. DYSPLASIA AND CARCINOMA ARE NOT SEEN WELL. C. ESOPHAGUS, MID (BIOPSY): 1. MODERATE, DIFFUSE CHRONIC ESOPHAGITIS WITH DIFFUSE PARAKERATOSIS IS SEEN. 2. THE LACK OF DIFFUSE BASAL ZONE HYPERPLASIA PRECLUDES A DIAGNOSIS OF CHRONIC REFLUX ESOPHAGITIS AT THIS SITE. 3. A PAS STAIN FAILS TO REVEAL FUNGAL HYPHAE AND SPORES. 4. GLANDULAR EPITHELIUM IS NOT SEEN ON LEVELS X3. 5. DYSPLASIA AND CARCINOMA ARE NOT SEEN. 6. PLEASE SEE COMMENT. COMMENT: The presence of diffuse parakeratosis in part B of this case is of interest. Esophageal parakeratosis can present endoscopically as a white flat elevated lesion of the mucosa in the mid esophagus. As such, correlation with the endoscopic findings in this case is suggested in this regard. -- tolerating diet much better after EGD, chest pain much better no nausea, (+) BM -- GI recommendations: Prilosec 40mg BID x 8 weeks ff up with GI in 8 weeks for repeat EGD POSSIBLE CHRONIC ASPIRATION -- from Esophageal Stenosis? Esophagitis? Reflux? -- CT chest: Bronchial wall thickening and dependent changes with debris in the lower trachea could suggest chronic aspiration. No focal infiltrate to suggest pneumonia. Specifically, no infiltrate at the right apex. The appearance on radiograph is felt to represent overlapping osseous structures. -- no nausea, cough, choking after EGD s/p Dilation of Stenosis management as noted above patient prefers Speech therapy evaluation as outpatient CHRONIC BACK PAIN, DEGENERATIVE CHANGEs HISTORY OF RADIATION MYELITIS S/P SPINAL STIMULATOR PLACEMENT --Evaluated by pain management service VANDANA Ferrara patient has been discharged from [facility] due to pain medication agreement violation -- given Tramadol PRN back pain continues to improve patient reports good pain control with Tramadol -- CT lumbar spine: IMPRESSION: 1. Degenerative changes at L3-4 with resultant spinal canal and neural foraminal narrowing. This results in large part from anterolisthesis of L3 on L4. Findings have worsened since prior radiographs in 2016. 2. Bilateral pars defects of L5 without significant anterolisthesis of L5 on S1. 3. No acute osseous injury. 4. Osteopenia. 5. Abnormal soft tissue in the left suprarenal fossa. This is better visualized on most recent chest CT as splenosis. -- complete CT scan report in the discharge summary -- pain adequately controlled with Tramadol PRN per patient discussed with VANDANA Santana, recommend Tramadol PRN for the short term, will prescribe 1-2 day supply, patient very much agreeable to this plan Miralax daily -- continue outpatient follow up with PCP/Pain Specialist for pain management Pain Mgt [facility] recommends referral to [facility] may benefit referral to Ortho spine HYPERTENSION -Continue amlodipine COPD -No signs of acute exacerbation, continue home inhalers advised smoking cessation HYPOTHYROIDISM -Continue levothyroxine BIPOLAR DISORDER -Continued on lithium - patient requested Psych consult to "talk about his emotions"--> they recommend to continue Obetz dose, ff up closely as outpatient counselled on cannabis usage risks i strongly advised him not to use any illicit substances, no smoking/alcohol HISTORY OF RADIATION MYELOPATHY, PARAPLEGIA - PT/OT ordered, recommend to return home [facility] referral given DVT PROPHYLAXIS -SQ Lovenox DISPOSITION d/c home ff up with new PCP at [facility] 04/06/18 ff up with Prospecting Driller Helper Dr. Padron for Lexiscan stress test plan of care discussed extensively with patient and his friend he is very much agreeable and comfortable with plan of care all questions answered he expressed gratitude for the care he has received while admitted Total time spent on discharge = 60 minutes This includes examination of the patient, discharge planning, medication reconciliation, and communication with other providers. Discharge Instructions Discharge Instructions Date of Service April 06, 2018. Admission Reason for Admission: Chest Pain Discharge Discharge Diagnosis / Problem: CHEST PAIN, LIKELY FROM ESOPHAGITIS Discharge Goals Goal(s): Diagnostic testing, Therapeutic intervention Activity Recommendations Activity Limitations: as noted below (ADVANCE ACTIVITY GRADUALLY TOLERATED, NO HEAVY EXERTION) . Instructions / Follow-Up Instructions / Follow-Up PLEASE REVIEW YOUR NEW MEDICATION LIST AND FOLLOW INSTRUCTIONS CAREFULLY/TAKE ONLY DIRECTED. CALL YOUR PRIMARY CARE PHYSICIAN OR RETURN TO THE ER IMMEDIATELY IF WITH RECURRENCE/WORSENING OF SYMPTOMS. FOLLOW UP WITH PRIMARY CARE PROVIDER OF [facility]: DR. VALLECILLO / Diana JONES ON 04/06/18 AT 1:00 PM. Address: [address] [place] [address] [id number] PADRON- TANK INSULATOR RUBBER IN 1 WEEK FOR LEXISCAN TEST. Current Hospital Diet Patient's current hospital diet: AHA Diet (Heart Healthy) Discharge Diet Recommended Diet: AHA Diet (Heart Healthy) Procedures Procedures Performed: Esophagogastroduodenoscopy W/Biopsies and Balloon Dilitation Pending Studies Studies pending at discharge: no Medical Emergencies . Who to Call and When: Medical Emergencies: If at any time you feel your situation is an emergency, please call 911 immediately. . Non-Emergent Contact Non-Emergency issues call your: Primary Care Provider, [employer] Dr[employer] Helper Call Non-Emergent contact if: you have a fever, your pain is not controlled, your pain is worsening, you have any medication questions . . "Provider Documentation" section prepared by Matthew Beckman. . [place] Drug Monitoring Program
[2018-04-06] MEDS ORDERED: TRAM-10 PO ×3 (13:01→13:04)
== END 2018-04-06 10:23 | disposition home or self-care (01) | DRG 392 ==
LOC: C.2E 14:40 → OBSVTOIN 15:44 → ENRESERV 04-04 12:26 → C.4E 04-04 13:01
PROVIDERS: ADMIT Family Medicine; ATTEND Internal Medicine
PROC: 0DB38ZX Excision of Lower Esophagus, Via Natural or Artificial Opening Endoscopic, Diagnostic (ICD-10-PCS; principal; 2018-04-04 12:30)
PROC: 0DB18ZX Excision of Upper Esophagus, Via Natural or Artificial Opening Endoscopic, Diagnostic (ICD-10-PCS; principal; 2018-04-04 12:30)
PROC: 0DB68ZX Excision of Stomach, Via Natural or Artificial Opening Endoscopic, Diagnostic (ICD-10-PCS; principal; 2018-04-04 12:30)
DX: K22.2 Esophageal obstruction (principal); F31.9 Bipolar disorder, unspecified; K20.9 Esophagitis, unspecified; G95.89 Other specified diseases of spinal cord; C81.90 Hodgkin lymphoma, unspecified, unspecified site; F11.20 Opioid dependence, uncomplicated; G82.22 Paraplegia, incomplete; R13.10 Dysphagia, unspecified; I25.10 Atherosclerotic heart disease of native coronary artery without angina pectoris; J44.9 Chronic obstructive pulmonary disease, unspecified; E11.9 Type 2 diabetes mellitus without complications; E78.5 Hyperlipidemia, unspecified; E21.3 Hyperparathyroidism, unspecified; Z95.0 Presence of cardiac pacemaker; Z90.81 Acquired absence of spleen; Z83.3 Family history of diabetes mellitus; Z88.2 Allergy status to sulfonamides; Z95.5 Presence of coronary angioplasty implant and graft; R11.2 Nausea with vomiting, unspecified; I10 Essential (primary) hypertension; Z85.528 Personal history of other malignant neoplasm of kidney; Y84.2 Radiological procedure and radiotherapy as the cause of abnormal reaction of the patient, or of later complication, without mention of misadventure at the time of the procedure; Z92.3 Personal history of irradiation; F60.9 Personality disorder, unspecified; F12.10 Cannabis abuse, uncomplicated; E03.9 Hypothyroidism, unspecified

== ENCOUNTER → 2018-04-09 | Outpatient (CLI) | payer OTHER ==
[~2018-04-09] MED LIST changes: +AMLO2.5T PO; +MRLP17X PO; +OMEP20TA PO; +OMEP40CA41 PO; +REGADENOSON 0.4 MG/5 ML SYR ONE; +TRAM-10 PO; +ULT50X PO
--- NOTE | 2018-04-10 11:36 | MYOCARDIAL PERFUSION SCAN ---
ONE-DAY NUCLEAR MEDICINE TECHNETIUM-99M CARDIOLITE MYOCARDIAL PERFUSION SCAN CLINICAL HISTORY: The patient has a known history of coronary artery disease having suffered a myocardial infarction in 2000 and had placement of intracoronary stents. He also has a history of a pacemaker. This stress test is being performed because of a chest pain syndrome. COMPARISON: None. TECHNIQUE: For the stress portion of the study, 28.4 mCi of Technetium 99 m Cardiolite IV was injected at 10:30 a.m. on . Thirty minutes following the injection, imaging of the heart was performed in multiple projection. For the rest portion of the study, 8.9 mCi of Technetium 99 m Cardiolite was injected IV at 9:00 a.m. One hour following the injection, imaging of the heart was performed in the same projections. For the stress portion of the study, 0.4 mg of Lexiscan was injected intravenously as per protocol. The patient did not experience chest discomfort. EKG notes atrioventricular pacing. No ST segment changes seen over the baseline abnormality. Following the study, the patient was hemodynamically stable without complaints. FINDINGS: The short axis, vertical long axis, horizontal long axis images were reviewed in detail. There is normal myocardial perfusion at both stress and rest. The rotating images suggest an area of arm attenuation involving the inferior base. However, the gated images show normal function. No scintigraphic evidence of a prior myocardial infarction or stress-induced myocardial ischemia. The left ventricle demonstrates normal systolic function without wall motion abnormality. An estimated left ventricular ejection fraction is 55%. IMPRESSION: 1. No scintigraphic evidence of a prior myocardial infarction or stress-induced myocardial ischemia. 2. No Lexiscan-induced chest pain. 3. No Lexiscan-induced EKG changes. 4. Normal left ventricular systolic function without wall motion abnormality. Left ventricular ejection fraction is 55%.
== END | disposition home or self-care (01) ==
LOC: C.NUCL 08:27
PROVIDERS: ATTEND Internal Medicine Clinical Cardiac Electrophysiology
DX: R07.9 Chest pain, unspecified (principal)

== ENCOUNTER 2018-06-25 19:53 | Emergency (ER) | payer OTHER ==
[~2018-06-25] VITALS: Ht 177.8 cm; Wt 63.8 kg
[~2018-06-25 19:53] MED LIST changes: -ALBUAER2 INH; -FLUT1INH INH; -LISI-729 PO; -MELATAB2 PO; -OMEP20TA PO; -OXYC-57 PO; -PANT40TA2 PO; -REGADENOSON 0.4 MG/5 ML SYR ONE; -RXC5 PO; -ULT50X PO; -UMEC1INH INH
[2018-06-25 20:25] VITALS: TEMP 37.2; Ht 177.8 cm; Wt 63.8 kg
--- NOTE | 2018-06-25 20:54 | EMERGENCY ROOM VISIT NOTE ---
History Report prepared by Levi: Florentin Rehman Under the Supervision of: Dr. Carmel Ng M.D. First contact with patient: 20:08 Stated Complaint: 302 History of Present Illness The patient is a 72 year old male who presents to the Emergency Room. The patient states that he was in the middle of [facility] on his scooter today protesting with the intention of getting arrested. He denies intentions of suicide, and denies being injured. He states that he regularly uses his scooter due to being paraplegic, and reports that there were several people in his building that were unable to go to [facility] due to [employer] replacing the sidewalk outside his building with gravel. The patient states that he smokes a quarter pack of cigarettes a day. He notes drinking 1 shot every 2 weeks. He reports that he last smoked marijuana this past week. Police reports that they received multiple calls that the patient was obstructing traffic on [facility] and screaming at people. They state that the patient refused to get off the roadway until [employer] came. Police also state that the patient said he wanted the right beena closed and wanted to pray to God. They report that the patient was brought to the hospital, and stated that if he was let out of the hospital, he would go back to the street. Source of History: patient, police Onset: today Quality: other (obstructing traffic as a protest) Timing: resolved Note: denies intentions of suicide or injury Review of Systems See HPI for pertinent positives & negatives. A total of 10 systems reviewed and were otherwise negative. Past Medical & Surgical Medical Problems: (1) Bipolar 1 disorder (2) CAD (coronary artery disease) (3) Cannabis abuse (4) Chronic back pain (5) COPD (chronic obstructive pulmonary disease) (6) DM type 2 (diabetes mellitus, type 2) (7) Dyslipidemia (8) History of hodgkin's lymphoma (9) History of kidney cancer (10) Hyperparathyroidism (11) Hypertension (12) Hypothyroidism (13) Incomplete paraplegia (14) Nondisplaced bimalleolar fracture of left ankle (15) Pacemaker (16) Personality disorder (17) Pulmonary nodule (18) Radiation induced myelitis (19) Symptomatic bradycardia (20) Vitamin D deficiency Surgical Problems: (1) H/O partial nephrectomy (2) S/p abdominal wall deep tumor excision (3) S/P coronary artery stent placement (4) S/P femoral-popliteal bypass surgery (5) S/P insertion of spinal cord stimulator (6) S/P placement of cardiac pacemaker (7) S/P splenectomy Family History Diabetes mellitus FATHER MOTHER FH: heart disease FATHER MOTHER Stroke FATHER Social History Smoking Status: Current Every Day Smoker Marital Status: single Housing Status: lives alone Occupation Status: disabled Current/Historical Medications Scheduled Amlodipine (Norvasc), 2.5 MG PO DAILY Aspirin (Aspirin EC Low Dose), 81 MG PO DAILY Atorvastatin (Lipitor), 40 MG PO QAM Cholecalciferol (D3-1000), 1,000 UNITS PO WK Docusate Sodium (Docusate Sodium), 100 MG PO BID Fluticasone Propionate (Nasal) (Flonase Allergy Relief), 2 SPRAYS JAKSARAN DAILY Levothyroxine Sodium (Synthroid), 25 MCG PO QAM [place] Carbonate ([place] Carbonate), 300 MG PO HS Loratadine (Claritin), 1 TAB PO QAM Metoprolol Succ (Toprol Xl) (Toprol-Xl), 25 MG PO DAILY Omeprazole (Prilosec), 40 MG PO BID Polyethylene Glycol 3350 (Miralax), 17 GM PO DAILY Tiotropium [place] (Spiriva Handihaler), 1 CAP INH DAILY Scheduled PRN Acetaminophen (Tylenol Arthritis Ext Rel), 650 MG PO Q4H PRN for Pain Albuterol Sulf (Proventil 0.083% 2.5MG/3ML), 2.5 MG INH Q4H PRN for SOB/Wheezing Loperamide Hcl (Imodium), 2 MG PO Q8 PRN for Diarrhea Ondasetron Odt (Zofran Odt), 4 MG SL Q8 PRN for Nausea or Vomiting Senna (Senokot), 1 TAB PO BID PRN for Constipation Tramadol (Ultram), 50 MG PO Q6H PRN for Pain Allergies Coded Allergies: Shellfish (Verified Allergy, Severe, shortness of breath , 06/25/18) STATES OK WITH CT CONTRAST Sulfa Antibiotics (Verified Allergy, Intermediate, severe rash, 06/25/18) Nitroglycerin (Verified Adverse Reaction, Mild, HEADACHE, 06/25/18) Prednisone (Verified Adverse Reaction, Mild, confusion, 06/25/18) Physical Exam Vital Signs Date Time Temp Pulse Resp B/P (MAP) Pulse Ox O2 Delivery O2 Flow Rate FiO2 06/25/18 23:15 67 18 128/79 93 06/25/18 20:25 37.2 62 16 182/88 96 Room Air Physical Exam Vital signs reviewed. General: Well-appearing male, in no significant distress. HEENT: No scleral icterus, PERRLA, neck supple. Atraumatic. Cardiovascular: Regular rate and rhythm, no extra sounds. Pulmonary: Clear to auscultation bilaterally, normal work of breathing. Abdomen: Soft, nontender, nondistended, positive bowel sounds. Musculoskeletal: Atraumatic, no peripheral edema. Neurologic: Patient awake alert and oriented x 3, full strength in all 4 extremities. Cranial nerves 2 through 12 grossly intact. Skin: Warm, dry, no rash Psych: Negative SI and negative HI. Medical Decision & Procedures Laboratory Results 06/25/18 20:48 Red Blood Count 4.84, Mean Corpuscular Volume 88.2, Mean Corpuscular Hemoglobin 29.5, Mean Corpuscular Hemoglobin Concent 33.5, Mean Platelet Volume 9.3, Neutrophils (%) (Auto) 56.7, Lymphocytes (%) (Auto) 32.6, Monocytes (%) (Auto) 7.7, Eosinophils (%) (Auto) 2.4, Basophils (%) (Auto) 0.4, Neutrophils # (Auto) 5.51, Lymphocytes # (Auto) 3.17, Monocytes # (Auto) 0.75, Eosinophils # (Auto) 0.23, Basophils # (Auto) 0.04 06/25/18 20:48 Test 06/25/18 20:48 06/25/18 21:15 06/25/18 21:22 White Blood Count 9.72 K/uL (4.8-10.8) Red Blood Count 4.84 M/uL (4.7-6.1) Hemoglobin 14.3 g/dL (14.0-18.0) Hematocrit 42.7 % (42-52) Mean Corpuscular Volume 88.2 fL (80-100) Mean Corpuscular Hemoglobin 29.5 pg (25-34) Mean Corpuscular Hemoglobin Concent 33.5 g/dl (32-36) Platelet Count 321 K/uL (130-400) Mean Platelet Volume 9.3 fL (7.4-10.4) Neutrophils (%) (Auto) 56.7 % Lymphocytes (%) (Auto) 32.6 % Monocytes (%) (Auto) 7.7 % Eosinophils (%) (Auto) 2.4 % Basophils (%) (Auto) 0.4 % Neutrophils # (Auto) 5.51 K/uL (1.4-6.5) Lymphocytes # (Auto) 3.17 K/uL (1.2-3.4) Monocytes # (Auto) 0.75 K/uL (0.11-0.59) Eosinophils # (Auto) 0.23 K/uL (0-0.5) Basophils # (Auto) 0.04 K/uL (0-0.2) RDW Standard Deviation 47.5 fL (36.4-46.3) RDW Coefficient of Variation 14.6 % (11.5-14.5) Immature Granulocyte % (Auto) 0.2 % Immature Granulocyte # (Auto) 0.02 K/uL (0.00-0.02) Anion Gap 8.0 mmol/L (3-11) Est Creatinine Clear Calc Drug Dose 82.7 ml/min Estimated GFR () 107.7 Estimated GFR (Non- 92.9 BUN/Creatinine Ratio 29.4 (10-20) Calcium Level 10.5 mg/dl (8.5-10.1) Total Bilirubin 0.6 mg/dl (0.2-1) Direct Bilirubin 0.2 mg/dl (0-0.2) Aspartate Amino Transf (AST/SGOT) 17 U/L (15-37) Alanine Aminotransferase (ALT/SGPT) 18 U/L (12-78) Alkaline Phosphatase 101 U/L (45-117) Total Protein 8.3 gm/dl (6.4-8.2) Albumin 4.3 gm/dl (3.4-5.0) Thyroid Stimulating Hormone (TSH) 1.610 uIu/ml (0.300-4.500) Salicylates Level 1.9 mg/dl (2.8-20) Acetaminophen Level < 2 ug/ml (10-30) [place] Level < 0.2 mMOL/L (0.6-1.2) Ethyl Alcohol mg/dL < 3.0 mg/dl (0-3) Urine Color YELLOW Urine Appearance CLEAR (CLEAR) Urine pH 5.0 (4.5-7.5) Urine Specific [place] 1.020 (1.000-1.030) Urine Protein TRACE (NEG) Urine Glucose (UA) NEG (NEG) Urine Ketones NEG (NEG) Urine Occult Blood NEG (NEG) Urine Nitrite NEG (NEG) Urine Bilirubin NEG (NEG) Urine Urobilinogen NEG (NEG) Urine Leukocyte Esterase TRACE (NEG) Urine WBC (Auto) 1-5 /hpf (0-5) Urine RBC (Auto) 5-10 /hpf (0-4) Urine Hyaline Casts (Auto) 1-5 /lpf (0-5) Urine Epithelial Cells (Auto) >30 /lpf (0-5) Urine Bacteria (Auto) NEG (NEG) Urine Opiates Screen NEG (NEG) Urine Methadone, Qualitative NEG (NEG) Urine Barbiturates NEG (NEG) Urine Phencyclidine (PCP) Level NEG (NEG) Ur Amphetamine/Methamphetamine NEG (NEG) MDMA (Ecstasy) Screen NEG (NEG) Urine Benzodiazepines Screen NEG (NEG) Urine Cocaine Metabolite NEG (NEG) Urine Marijuana (THC) POS (NEG) Laboratory results per my review. ED Course 2012: Past medical records reviewed. The patient was evaluated in room A5. A complete history and physical examination was performed. 2315: I reevaluated the patient and discussed findings with him. He verbalized agreement of the treatment plan. He was discharged home. Medical Decision Differential diagnosis: Etiologies such as mood disorder, infection, hypoglycemia, electrolyte abnormalities, cardiac sources, intracerebral event, toxicologic, neurologic, as well as others were entertained. This patient was evaluated and appeared to be in no significant distress. Patient is coherent, very well spoken and direct. He denies any SI or HI. I do suspect the patient has some difficulty expressing himself, but he was attempting to protest the closing of side nieves in both sides of the street. He does feel that his rights were violated. It is felt that the patient is not a danger to himself or others at this time. He was discharged to the care of a taxi to follow-up with his therapist as needed. The 302 [address] was declined. He will return to the ED for worsening of symptoms or any medical concerns. Medication Reconcilliation Current Medication List: was personally reviewed by me Blood Pressure Screening Patient's blood pressure: Elevated blood pressure Blood pressure disposition: Elevated BP felt to be situational Impression Primary Impression: Situational disturbance Scribe Attestation The scribe's documentation has been prepared under my direction and personally reviewed by me in its entirety. I confirm that the note above accurately reflects all work, treatment, procedures, and medical decision making performed by me. Departure Information Dispostion Home / Self-Care Referrals Margoth Kaur M.D. (PCP) Forms HOME CARE DOCUMENTATION FORM, IMPORTANT VISIT INFORMATION Additional Instructions Diagnosis: Situational disturbance Please continue your medications as prescribed. Your lithium level is pending. Follow-up with your primary care physician for reevaluation this week. Contact your psychiatrist or counselor to debrief on the situation this evening. Return to the emergency department for worsening of symptoms or any medical concerns.
[2018-06-25 20:59] LABS: BASO % 0.4 %; BASO ABS # 0.04 K/uL (0-0.2); EOS % 2.4 %; EOS ABS # 0.23 K/uL (0-0.5); HEMATOCRIT 42.7 % (42-52); HEMOGLOBIN 14.3 g/dL (14.0-18.0); IG# 0.02 K/uL (0.00-0.02); LYMPH % 32.6 %; LYMPH ABS # 3.17 K/uL (1.2-3.4); MEAN CELL VOLUME 88.2 fL (80-100); MEAN CORPUSCULAR HEMOGLOBIN 29.5 pg (25-34); MEAN CORPUSCULAR HGB CONC 33.5 g/dl (32-36); MEAN PLATELET VOLUME 9.3 fL (7.4-10.4); MONO % 7.7 %; MONO ABS # 0.75 K/uL (0.11-0.59); NEUT % 56.7 %; NEUT ABS # 5.51 K/uL (1.4-6.5); PLATELET COUNT 321 K/uL (130-400); RED CELL DISTRIBUTION WIDTH CV 14.6 % (11.5-14.5); RED CELL DISTRIBUTION WIDTH SD 47.5 fL (36.4-46.3); WHITE BLOOD COUNT 9.72 K/uL (4.8-10.8)
[2018-06-25 21:28] LABS: ALBUMIN 4.3 gm/dl (3.4-5.0); CALCIUM 10.5 mg/dl (8.5-10.1); CREATININE 0.75 mg/dl (0.60-1.40); POTASSIUM 4.2 mmol/L (3.5-5.1); TOTAL PROTEIN 8.3 gm/dl (6.4-8.2)
[2018-06-25] MEDS ORDERED: SPRIN/30 INH (22:09)
[2018-06-25] MEDS ORDERED: IMD/2 PO (22:09)
[2018-06-25] MEDS ORDERED: POLY335019 PO (22:09)
[2018-06-25] MEDS ORDERED: ONDA4TAB10 SL (22:09)
[2018-06-25] MEDS ORDERED: METO25TA3 PO (22:09)
[2018-06-25] MEDS ORDERED: ALBINS/ INH (22:09)
[2018-06-25] MEDS ORDERED: FLUT0.15 NAE (22:09)
[2018-06-25] MEDS ORDERED: OMEP40CA41 PO (22:09)
[2018-06-25] MEDS ORDERED: TRAM-10 PO (22:09)
[2018-06-25] MEDS ORDERED: ACET1TAB84 PO (22:09)
[2018-06-25] MEDS ORDERED: CHOLTAB9 PO (22:09)
[2018-06-25 23:15] VITALS: BP 128/79; PULSE 67; O2SAT 93
== END 2018-06-25 23:15 | disposition home or self-care (01) ==
LOC: EDBD 19:53 → C.EDA 19:55
DX: Z04.6 Encounter for general psychiatric examination, requested by authority (principal); F17.210 Nicotine dependence, cigarettes, uncomplicated; F31.9 Bipolar disorder, unspecified; I25.10 Atherosclerotic heart disease of native coronary artery without angina pectoris; F12.10 Cannabis abuse, uncomplicated; G89.29 Other chronic pain; M54.9 Dorsalgia, unspecified; J44.9 Chronic obstructive pulmonary disease, unspecified; E11.9 Type 2 diabetes mellitus without complications; E78.5 Hyperlipidemia, unspecified; Z85.528 Personal history of other malignant neoplasm of kidney; E21.3 Hyperparathyroidism, unspecified; I10 Essential (primary) hypertension; E03.9 Hypothyroidism, unspecified; Z95.0 Presence of cardiac pacemaker; E55.9 Vitamin D deficiency, unspecified; Z90.5 Acquired absence of kidney; Z95.5 Presence of coronary angioplasty implant and graft; Z90.81 Acquired absence of spleen; G82.22 Paraplegia, incomplete; Z85.71 Personal history of Hodgkin lymphoma; Z79.82 Long term (current) use of aspirin; Z79.899 Other long term (current) drug therapy; F60.9 Personality disorder, unspecified; Z96.89 Presence of other specified functional implants; Z91.013 Allergy to seafood; Z88.2 Allergy status to sulfonamides; Z88.8 Allergy status to other drugs, medicaments and biological substances; Z82.3 Family history of stroke; Z83.3 Family history of diabetes mellitus

== ENCOUNTER 2018-06-30 21:10 | Inpatient (IN) | payer OTHER ==
[~2018-06-30] VITALS: Ht 177.8 cm; Wt 61.2 kg
[~2018-06-30 21:10] MED LIST changes: -CHOL100010 PO; +METO25TA3 PO; -MRLP17X PO; +POLY335019 PO; -TIOTCAP INH; -TRAM-10 PO
[2018-06-30] MEDS ORDERED: KETOROLAC TROMETHAMINE 30 MG/ML VIAL IV STA (21:25)
[2018-06-30 21:38] LABS: BASO % 0.5 %; BASO ABS # 0.04 K/uL (0-0.2); EOS % 3.8 %; EOS ABS # 0.34 K/uL (0-0.5); HEMATOCRIT 43.4 % (42-52); HEMOGLOBIN 14.6 g/dL (14.0-18.0); IG# 0.02 K/uL (0.00-0.02); LYMPH % 37.8 %; LYMPH ABS # 3.34 K/uL (1.2-3.4); MEAN CELL VOLUME 88.9 fL (80-100); MEAN CORPUSCULAR HEMOGLOBIN 29.9 pg (25-34); MEAN CORPUSCULAR HGB CONC 33.6 g/dl (32-36); MEAN PLATELET VOLUME 9.3 fL (7.4-10.4); MONO % 9.4 %; MONO ABS # 0.83 K/uL (0.11-0.59); NEUT % 48.3 %; NEUT ABS # 4.27 K/uL (1.4-6.5); PLATELET COUNT 315 K/uL (130-400); RED CELL DISTRIBUTION WIDTH CV 14.8 % (11.5-14.5); RED CELL DISTRIBUTION WIDTH SD 47.7 fL (36.4-46.3); WHITE BLOOD COUNT 8.84 K/uL (4.8-10.8)
[2018-06-30 21:47] LABS: PTT PATIENT 25.4 SECONDS (21.0-31.0)
--- NOTE | 2018-06-30 21:49 | DIAGNOSTIC IMAGING REPORT ---
SINGLE VIEW CHEST CLINICAL HISTORY: Atypical chest pain. FINDINGS: An AP, portable, upright chest radiograph is compared to study dated 04/03/2018 and correlated with chest CT dated 04/02/2018. The examination is degraded by portable technique and patient rotation. A 2-lead cardiac pacemaker is unchanged in position and partially obscures the right apex. The heart is enlarged and there is atherosclerotic calcification of the thoracic aorta. The pulmonary vasculature is noncongested. Chronic interstitial thickening is similar to previous. There is no airspace consolidation, large pleural effusion, or pneumothorax. Chronic elevation of left hemidiaphragm with mild left basilar atelectasis is unchanged. The skeletal structures are osteopenic. Advanced degenerative change and chronic deformity is present in the right shoulder. Intrathecal leads project over the thoracic spine. Numerous surgical clips are present in the upper abdomen. IMPRESSION: 1. Cardiomegaly and cardiac pacemaker with no radiographic evidence of congestive failure. 2. There is no airspace consolidation or large pleural effusion. Electronically signed by: Stanislav Moses M.D. 06/30/2018 9:48 PM Dictated Date/Time: 06/30/2018 9:46 PM
[2018-06-30 21:58] LABS: CALCIUM 10.3 mg/dl (8.5-10.1); CREATININE 0.7 mg/dl (0.60-1.40); POTASSIUM 4.3 mmol/L (3.5-5.1)
[2018-06-30] MEDS ORDERED: POLY3350 PO (21:58)
[2018-06-30] MEDS ORDERED: AMLO2.5T PO (21:58)
[2018-06-30] MEDS ORDERED: TPRSR/25 PO (21:58)
[2018-06-30] MEDS ORDERED: OMEP20CA9 PO (21:58)
[2018-06-30] MEDS ORDERED: OMEP40CA41 PO (22:03)
[2018-06-30] MEDS ORDERED: FLUT0.15 NAE (22:09)
[2018-06-30] MEDS ORDERED: ALBINS/ NEB (22:09)
[2018-06-30] MEDS ORDERED: TRAM-10 PO (22:09)
[2018-06-30] MEDS ORDERED: ACET1TAB84 PO (22:09)
[2018-06-30] MEDS ORDERED: ONDA4TAB10 SL (22:09)
[2018-06-30] MEDS ORDERED: IMD/2 PO (22:09)
[2018-06-30] MEDS ORDERED: SPRIN/30 INH (22:09)
[2018-06-30] MEDS ORDERED: CHOLTAB9 PO (22:09)
[2018-06-30] MEDS ORDERED: ONDANSETRON INJ 2 MG/ML 2 ML VIAL IV STA (22:38)
[2018-06-30] MEDS ORDERED: ASPIRIN 324 MG CHEW PO STA (22:38)
[2018-06-30] MEDS ORDERED: MoRPHine SULFATE 4 MG/ML 1 ML CARP\\VIAL IV STA (22:38)
--- NOTE | 2018-06-30 23:11 | EMERGENCY ROOM VISIT NOTE ---
History Report prepared by Levi: Parmjit Mi Under the Supervision of: Dr. Jw Matute M.D. First contact with patient: 21:12 Chief Complaint: CHEST PAIN Stated Complaint: CHEST PAIN History of Present Illness The patient is a 72 year old male who presents to the Emergency Room via ALS from [facility] with complaints of a now-resolved episode of chest pain that began around 1900, 2 hours and 20 minutes ago. The patient states that the pain lasted for about 30 seconds before spontaneously resolving. He describes the pain as a "sharp" feeling and rates it as a 7/10 in severity at its worst. The patient was in the emergency department in March of this year for chest pain as well. He notes that this episode is different as the previous event was more severe. He also states that he became "sweaty and chilled" when this episode began. He also complains of a cough and vomiting, but notes that this is baseline secondary to the "esophageal radiation." He continued to mention that "I have two sources of pain" and adds that he has spinal/back pain due to kidney cancer surgery. The patient was admitted on his visit in March. An EGD found this his chest pain was likely related to esophageal stenosis. Onset: 2 hours ago Position: chest (left) Symptom Intensity: 7/10 Quality: sharp Timing: resolved Associated Symptoms: + chills, + cough, + vomiting Review of Systems See HPI for pertinent positives & negatives. A total of 10 systems reviewed and were otherwise negative. Past Medical & Surgical Medical Problems: (1) Bipolar 1 disorder (2) CAD (coronary artery disease) (3) Cannabis abuse (4) Chronic back pain (5) COPD (chronic obstructive pulmonary disease) (6) DM type 2 (diabetes mellitus, type 2) (7) Dyslipidemia (8) History of hodgkin's lymphoma (9) History of kidney cancer (10) Hyperparathyroidism (11) Hypertension (12) Hypothyroidism (13) Incomplete paraplegia (14) Nondisplaced bimalleolar fracture of left ankle (15) Pacemaker (16) Personality disorder (17) Pulmonary nodule (18) Radiation induced myelitis (19) Symptomatic bradycardia (20) Vitamin D deficiency Surgical Problems: (1) H/O partial nephrectomy (2) S/p abdominal wall deep tumor excision (3) S/P coronary artery stent placement (4) S/P femoral-popliteal bypass surgery (5) S/P insertion of spinal cord stimulator (6) S/P placement of cardiac pacemaker (7) S/P splenectomy Family History Diabetes mellitus FATHER MOTHER FH: heart disease FATHER MOTHER Stroke FATHER Social History Smoking Status: Light Tobacco Smoker Marital Status: single Housing Status: lives alone Occupation Status: disabled Current/Historical Medications Scheduled Amlodipine Besylate (Norvasc), 2.5 MG PO DAILY Aspirin (Aspirin EC Low Dose), 81 MG PO DAILY Atorvastatin (Lipitor), 40 MG PO HS Cholecalciferol (D3-1000), 1,000 INTER.UNIT PO WK Docusate Sodium (Docusate Sodium), 100 MG PO BID Fluticasone Propionate (Nasal) (Flonase Allergy Relief), 2 SPRAYS JASKARAN DAILY Levothyroxine Sodium (Synthroid), 25 MCG PO QAM [place] Carbonate ([place] Carbonate), 300 MG PO HS Loratadine (Claritin), 10 MG PO DAILY Metoprolol Succinate (Metoprolol Succinate ER), 25 MG PO DAILY Omeprazole (Prilosec), 40 MG PO BID Polyethylene Glycol 3350 (Polyethylene Glycol 3350), 17 GM PO DAILY Tiotropium [place] (Spiriva Handihaler), 1 CAP INH DAILY Scheduled PRN Acetaminophen (Tylenol Arthritis Ext Rel), 650 MG PO Q4H PRN for Pain Albuterol Sulf (Proventil 0.083% 2.5MG/3ML), 2.5 MG NEB Q4H PRN for SOB/Wheezing Loperamide Hcl (Imodium), 2 MG PO Q8 PRN for Diarrhea Ondasetron Odt (Zofran Odt), 4 MG SL Q8 PRN for Nausea or Vomiting Senna (Senokot), 8.6 MG PO Q12 PRN for Constipation Tramadol (Ultram), 50 MG PO Q6H PRN for Pain Allergies Coded Allergies: Shellfish (Verified Allergy, Severe, shortness of breath , 06/25/18) STATES OK WITH CT CONTRAST Sulfa Antibiotics (Verified Allergy, Intermediate, severe rash, 06/25/18) Nitroglycerin (Verified Adverse Reaction, Mild, HEADACHE, 06/25/18) Prednisone (Verified Adverse Reaction, Mild, confusion, 06/25/18) Physical Exam Vital Signs Date Time Temp Pulse Resp B/P (MAP) Pulse Ox O2 Delivery O2 Flow Rate FiO2 06/30/18 22:53 63 18 164/77 99 Room Air 06/30/18 21:34 99 Room Air 06/30/18 21:33 67 06/30/18 21:22 96 Room Air 06/30/18 21:21 36.6 71 18 165/85 96 Room Air 06/30/18 21:19 96 Room Air Physical Exam Constitutional: Vital signs reviewed. Eyes: Pupils are equal round reactive to light. Conjunctiva are noninjected. ENT: Pharynx is clear without erythema or exudate. Mucous membranes are moist. Neck supple without meningeal signs. Respiratory: Clear to auscultation bilaterally. Breath sounds are equal bilaterally. Chest: There is very reproducible chest wall tenderness on the left side. Cardiovascular: Regular rate and rhythm. No rubs or gallops. GI: Soft, nondistended and nontender. Bowel sounds are present. Musculoskeletal: No peripheral edema. No lower extremity tenderness. Integumentary: No cyanosis. Neurological: The patient is awake and alert. Moves all extremities. Psychiatric: Normal affect. Medical Decision & Procedures ER Provider Diagnostic Interpretation: Radiology results as stated below per my review and the radiologist's interpretation: SINGLE VIEW CHEST CLINICAL HISTORY: Atypical chest pain. FINDINGS: An AP, portable, upright chest radiograph is compared to study dated 04/03/2018 and correlated with chest CT dated 04/02/2018. The examination is degraded by portable technique and patient rotation. A 2-lead cardiac pacemaker is unchanged in position and partially obscures the right apex. The heart is enlarged and there is atherosclerotic calcification of the thoracic aorta. The pulmonary vasculature is noncongested. Chronic interstitial thickening is similar to previous. There is no airspace consolidation, large pleural effusion, or pneumothorax. Chronic elevation of left hemidiaphragm with mild left basilar atelectasis is unchanged. The skeletal structures are osteopenic. Advanced degenerative change and chronic deformity is present in the right shoulder. Intrathecal leads project over the thoracic spine. Numerous surgical clips are present in the upper abdomen. IMPRESSION: 1. Cardiomegaly and cardiac pacemaker with no radiographic evidence of congestive failure. 2. There is no airspace consolidation or large pleural effusion. Electronically signed by: Stanislav Moses M.D. 06/30/2018 9:48 PM Dictated Date/Time: 06/30/2018 9:46 PM Laboratory Results 06/30/18 21:25 Red Blood Count 4.88, Mean Corpuscular Volume 88.9, Mean Corpuscular Hemoglobin 29.9, Mean Corpuscular Hemoglobin Concent 33.6, Mean Platelet Volume 9.3, Neutrophils (%) (Auto) 48.3, Lymphocytes (%) (Auto) 37.8, Monocytes (%) (Auto) 9.4, Eosinophils (%) (Auto) 3.8, Basophils (%) (Auto) 0.5, Neutrophils # (Auto) 4.27, Lymphocytes # (Auto) 3.34, Monocytes # (Auto) 0.83, Eosinophils # (Auto) 0.34, Basophils # (Auto) 0.04 06/30/18 21:25 Test 06/30/18 21:25 White Blood Count 8.84 K/uL (4.8-10.8) Red Blood Count 4.88 M/uL (4.7-6.1) Hemoglobin 14.6 g/dL (14.0-18.0) Hematocrit 43.4 % (42-52) Mean Corpuscular Volume 88.9 fL (80-100) Mean Corpuscular Hemoglobin 29.9 pg (25-34) Mean Corpuscular Hemoglobin Concent 33.6 g/dl (32-36) Platelet Count 315 K/uL (130-400) Mean Platelet Volume 9.3 fL (7.4-10.4) Neutrophils (%) (Auto) 48.3 % Lymphocytes (%) (Auto) 37.8 % Monocytes (%) (Auto) 9.4 % Eosinophils (%) (Auto) 3.8 % Basophils (%) (Auto) 0.5 % Neutrophils # (Auto) 4.27 K/uL (1.4-6.5) Lymphocytes # (Auto) 3.34 K/uL (1.2-3.4) Monocytes # (Auto) 0.83 K/uL (0.11-0.59) Eosinophils # (Auto) 0.34 K/uL (0-0.5) Basophils # (Auto) 0.04 K/uL (0-0.2) RDW Standard Deviation 47.7 fL (36.4-46.3) RDW Coefficient of Variation 14.8 % (11.5-14.5) Immature Granulocyte % (Auto) 0.2 % Immature Granulocyte # (Auto) 0.02 K/uL (0.00-0.02) Prothrombin Time 10.1 SECONDS (9.0-12.0) Prothromb Time International Ratio 1.0 (0.9-1.1) Activated Partial Thromboplast Time 25.4 SECONDS (21.0-31.0) Partial Thromboplastin Ratio 1.0 Anion Gap 4.0 mmol/L (3-11) Est Creatinine Clear Calc Drug Dose 89.6 ml/min Estimated GFR () 110.8 Estimated GFR (Non- 95.6 BUN/Creatinine Ratio 24.4 (10-20) Calcium Level 10.3 mg/dl (8.5-10.1) Troponin I 0.109 ng/ml (0-0.045) Chemistry Specimen Hemolysis Laboratory results as reviewed by me. Medications Administered Medications (Trade) Dose Ordered Sig/Jessica Route Start Time Stop Time Status Last Admin Dose Admin Ketorolac Tromethamine (Toradol Inj) 10 mg NOW STAT IV 06/30/18 21:25 06/30/18 21:27 DC 06/30/18 21:40 10 MG Morphine Sulfate (MoRPHine SULFATE INJ) 4 mg NOW STAT IV 06/30/18 22:38 06/30/18 22:40 DC 06/30/18 22:57 4 MG Ondansetron HCl (Zofran Inj) 4 mg NOW STAT IV 06/30/18 22:38 06/30/18 22:40 DC 06/30/18 22:56 4 MG ECG Per My Interpretation Indication: chest pain Rate (beats per minute): 81 Rhythm: other (AV Dual-paced rhythm with prolonged AV conduction) Findings: other (QRS is 188, no PVCs) Comparison ECG Date: 04/04/2018 Change: no significant change ED Course 2111: The patient was evaluated in room C5. A complete history and physical exam was performed. 2224: Ordered Toradol 10 mg IV. 4: I checked on the patient at this time. He is not having any chest pain. The patient would like something for chronic back pain. He is agreeable to an inpatient stay. 8: Ordered Aspirin 324 mg PO, Zofran 4 mg IV, Morphine Sulfate 4 mg IV. 2240: I discussed the case with Dr. Saskia Maravilla [facility] Hospitalist. He will evaluate the patient for further treatment. Medical Decision This is a 72-year-old male presents with chest pain. Differential diagnosis includes pleurisy, pneumothorax, pneumonia, acute coronary syndrome, GERD, esophageal stenosis. I did perform a limited focused review of portions of the patient's old chart on the electronic medical record. The patient was admitted in March of this year for chest pain. EGD on this visit showed that his chest pain was likely secondary to esophageal stenosis. During this hospital stay he showed narcotic seeking behavior. He also threatened to curt several physicians if they did not provide him with narcotics. I did evaluate the patient as noted above. The patient is presenting with episode of chest pain earlier which he describes as sharp. He did have some diaphoresis and shortness of breath with it. He is not having any chest discomfort at this time. He does have very reproducible chest wall tenderness on palpation of his left chest wall. IV access was established. The patient was placed on a continuous shelter monitor. I did order and personally review the patient's 12-lead EKG and chest x-ray as described above. Twelve-lead EKG demonstrates a paced rhythm. I did order and review the patient's blood work as noted in the electronic medical record. His troponin is elevated. I did reassess the patient. He is not having any chest discomfort or shortness of breath. He does complain of chronic back pain. I did additionally give him IV Toradol for his back pain but he states that does was not effective and requested some morphine. He was given 4 mg of IV morphine. I did discuss the test results with him. I did discuss the case with the hospitalist and nurse case manager. I did order aspirin but the patient had already received it in the ambulance. Medication Reconcilliation Current Medication List: was personally reviewed by me Blood Pressure Screening Patient's blood pressure: Elevated blood pressure Referred to hospitalist. Consults Time Called: [phone] Consulting Physician: Dr. [facility]ia [facility] Returned Call: [phone] I discussed the case with Dr. Saskia Coreas. He will evaluate the patient for further treatment. Impression Primary Impression: Left sided chest pain Additional Impressions: Elevated troponin Chronic back pain Scribe Attestation The scribe's documentation has been prepared under my direct and personally reviewed by me in its entirety. I confirm that the note above accurately reflects all work, treatment, procedures, and medical decision making performed by me. Departure Information Dispostion Being Evaluated By Hospitalist Referrals Al Padron MD (PCP) Patient Instructions My [facility] Problem Qualifiers Additional Impressions: Chronic back pain Back pain location: back pain in other location Qualified Codes: M54.9 - Dorsalgia, unspecified; G89.29 - Other chronic pain
[2018-07-01] VITALS (7 sets, daily range): BP systolic 144–188; BP diastolic 68–89; PULSE 65–77; TEMP 36.5–36.6; O2SAT 92–96; Ht 177.8 cm; Wt 61.2 kg
[2018-07-01] MEDS ORDERED: NITROGLYCERIN 0.4 MG SL PER TAB CHARGE SL PRN
[2018-07-01] MEDS ORDERED: ALBUTEROL 0.083% NEBU SOLN 3 ML VIAL INH PRN
[2018-07-01] MEDS ORDERED: POLYETHYLENE (MIRALAX) 17 GM PACK PO PRN
[2018-07-01] MEDS ORDERED: ACETAMINOPHEN 325 MG TAB PO PRN
[2018-07-01] MEDS ORDERED: ALUMINUM/MAGNESIUM/SIMETH (MAALOX MAX) 30 ML UDC PO PRN
[2018-07-01] MEDS ORDERED: ONDANSETRON 4MG OD TAB SL PRN
[2018-07-01] MEDS ORDERED: ONDANSETRON INJ 2 MG/ML 2 ML VIAL IV PRN
[2018-07-01] MEDS ORDERED: LOPERAMIDE HCL 2 MG CAP PO PRN
[2018-07-01] MEDS ORDERED: TRAMADOL HCL 50 MG TAB PO PRN
[2018-07-01] MEDS: MoRPHine SULFATE 4 MG/ML 1 ML CARP\\VIAL IV PRN ×3 (02:19→09:11)
--- NOTE | 2018-07-01 03:34 | HISTORY & PHYSICAL EXAMINATION ---
DATE OF ADMISSION: 07/01/2018 CHIEF COMPLAINT: Chest pain. 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 The patient says he has chronic back pain and he recently was also diagnosed with esophageal stenosis while he was in the hospital in 03/2018, and at that time he was s/p egd and dilatation of oesophageal stenosis presents with chest pain. He says he thought initially it was coming from the back or coming from the esophagus. It was on the left side of chest and radiated to his left arm up and down, on and off, for couple of hours, about 6/10 in severity,and was sweating then he thought it was coming from the heart and came to the ER. IV Morphine was given in the ER and his back pain resolved, but he still has mild chest discomfort. Currently, resting comfortably and is hemodynamically stable. Denies any other complaints. He says he is paraplegic and mostly does not ambulate. Denies any headaches. No blurred vision, no dizziness, no earache, no runny nose, no sore throat, no shortness of breath, no cough, no fever, no chills, no nausea, no abdominal pain. Normal bowel and bladder movements. No blood in the stools. No blood in the urine. No skin rash. ALLERGIES: NITROGLYCERIN, PREDNISONE, SHELLFISH, SULFA ANTIBIOTICS. PAST MEDICAL HISTORY: As mentioned above. PAST SURGICAL HISTORY: Status post pacemaker, history of partial nephrectomy, s/p abdominal wall deep tumor excisions, cardiac catheterization status post stent placement, status post femoral popliteal bypass surgery, status post splenectomy. MEDICATIONS: The patient is on amlodipine 2.5mg daily, aspirin 81 mg p.o. daily, Lipitor 40 mg p.o. daily, vitamin D 1000 units p.o. daily, Colace 100 mg p.o. b.i.d., levothyroxine 25 mcg p.o. daily, lithium bicarbonate 300 mg p.o. at bedtime, Claritin one tablet p.o. a.m., Spiriva 1 inhalation daily, omeprazole 1 tablet 40 mg p.o. b.i.d., Zofran 4 mg p.o. p.r.n., MiraLax 17 grams daily, albuterol nebulization q. 4 hours p.r.n. FAMILY HISTORY: Significant for father had diabetes, heart disease. Mother also had diabetes and heart disease. Father has stroke. SOCIAL HISTORY: Smokes everyday for many years. Occasional alcohol use. Currently in long-term. REVIEW OF SYMPTOMS: As per HPI. Rest of review of systems negative. PHYSICAL EXAMINATION: GENERAL: The patient is of moderate build, not in distress. VITAL SIGNS: Temperature 36.6, pulse 63, respiratory rate 18, blood pressure 164/77, oxygen 99% on room air. HEENT: No pallor, no icterus. Pupils equal, round, reactive to light. NECK: No JVD. No neck masses. No carotid bruits. CARDIOVASCULAR: S1, S2 heard, regular rate and rhythm, no murmur, no gallop. RESPIRATORY SYSTEM: Normal AP diameter. No accessory muscle use. No wheezing. No crackles. ABDOMEN: Soft, bowel sounds present. Nontender. No distention. CENTRAL NERVOUS SYSTEM: Nonfocal. EXTREMITIES: No edema, no erythema. LABS: WBC 8.8, hemoglobin 14.6, hematocrit 43.4, platelets 315. Sodium 138, potassium 4.3, chloride 107, bicarbonate 27, BUN 17, creatinine 0.7, serum glucose 88, calcium 10.3. Point of care troponin 0/109. PT 10.1, INR 1, APTT 25.4. Chest x-ray, no acute findings seen. EKG: AV dual paced rhythm with prolonged AV conduction at a rate of 72, no acute ST changes seen. ASSESSMENT AND PLAN: A 72-year-old male who presents with chest pain. 1. Chest pain, history of CAD, status post RCA stent, had a stress test in March, it was unremarkable as per patient. He was also in the hospital with chest pain in March. At that time, workup was also negative Today has mild elevation in troponin. We will observe in the hospital, do serial cardiac enzymes and echocardiogram. We will consult cardiology in the a.m. If the troponin bumps again, we will start him on IV heparin. Currently, hemodynamically stable. 2 .Hx of CAd s/p stent. On aspirin, b naty and statin. 3. hx of sick sinus syndrome s/p pace maker 4. Chronic pain. The patient is asking for narcotic pain medications. on morphine prn. will monitor 5. History of hypertension, on amlodipine and Toprol-XL. We will monitor the blood pressure. 6. Hyperlipidemia, on statin. 7. Chronic obstructive pulmonary disease not in exacerbation.Home inhalers 8.Bipolar disorder. Continue lithium. 9. History of radiation myelopathy paraplegia. 10. History of esophageal stenosis. Last admission EGD and s/p esophageal dilatation, but still has problems with swallowing. GI consult when patient is stable. Possible re-dilatation. 11 Disposition: Admit to tele floor. Expect to discharge home and follow with the family doctor. Level 1 full code. MTDD
[2018-07-01] MEDS ORDERED: HEPARIN SOD 5000 UNIT/0.5 ML CARP SQ SCH (06:00)
[2018-07-01] MEDS: LEVOTHYROXINE 25 MCG TAB PO SCH (06:04)
[2018-07-01 06:26] LABS: BASO % 0.8 %; BASO ABS # 0.06 K/uL (0-0.2); EOS % 6.1 %; EOS ABS # 0.44 K/uL (0-0.5); HEMATOCRIT 41.1 % (42-52); HEMOGLOBIN 13.3 g/dL (14.0-18.0); IG# 0.01 K/uL (0.00-0.02); LYMPH % 41.6 %; MEAN CELL VOLUME 89.5 fL (80-100); MEAN CORPUSCULAR HGB CONC 32.4 g/dl (32-36); MEAN PLATELET VOLUME 9.5 fL (7.4-10.4); MONO % 10.1 %; MONO ABS # 0.73 K/uL (0.11-0.59); NEUT % 41.3 %; NEUT ABS # 2.97 K/uL (1.4-6.5); PLATELET COUNT 300 K/uL (130-400); RED CELL DISTRIBUTION WIDTH CV 14.6 % (11.5-14.5); RED CELL DISTRIBUTION WIDTH SD 47.8 fL (36.4-46.3); WHITE BLOOD COUNT 7.21 K/uL (4.8-10.8)
[2018-07-01 07:05] LABS: CALCIUM 9.8 mg/dl (8.5-10.1); CKMB 2.8 ng/ml (0.5-3.6); CREATININE 0.7 mg/dl (0.60-1.40); POTASSIUM 3.9 mmol/L (3.5-5.1)
[2018-07-01] MEDS: CHOLECALCIFEROL 1000 INTER.UNIT TAB PO SCH (09:00)
[2018-07-01] MEDS ORDERED: ASPIRIN 81 MG ECTAB PO SCH (09:00)
[2018-07-01] MEDS ORDERED: METOPROLOL SUCC 25MG EXT REL TAB PO SCH (09:00)
[2018-07-01] MEDS: POLYETHYLENE (MIRALAX) 17 GM PACK PO SCH (09:00)
[2018-07-01] MEDS: PANTOprazole SOD 40 MG TAB PO SCH ×2 (09:00→20:52)
[2018-07-01] MEDS: DOCUSATE SODIUM 100 MG CAP PO SCH ×2 (09:13→20:51)
[2018-07-01] MEDS: LORATADINE 10 MG TAB PO SCH (09:13)
[2018-07-01] MEDS: FLUTICASONE PROPIONATE NA SPR 16 GM BTL NAE SCH (09:14)
[2018-07-01] MEDS: AMLODIPINE BESYLATE 5 MG TAB PO SCH (09:14)
[2018-07-01] MEDS: TIOTROPIUM BROMIDE 5 PUFF/90 MCG INH INH SCH (09:15)
--- NOTE | 2018-07-01 09:44 | ECHOCARDIOGRAM REPORT ---
*NOTICE TO RECEIVING REPUBLICAN AGENCY This information is strictly Confidential and protected under [place] law. [place] law prohibits you from making any further disclosure of this information unless further disclosure is expressly permitted by the written consent of the person to whom it pertains or is authorized by law. A general authorization for the release of medical or other information is not sufficient for this purpose. Hospital accepts no responsibility if the information is made available to any other person, INCLUDING THE PATIENT. Interpretation Summary * Name: ARNULFO GALEANO [id number] Study Date: 07/01/2018 07:07 AM BP: 156/74 mmHg * Patient Location: C.2T\S\S235\S\1 HR: 67 * : 1945 (M/d/yyyy) Gender: Male Height: 70 in * Age: 72 yrs Ethnicity: CA Weight: 142 lb * Ordering Physician: Kai Kruger * Referring Physician: [facility] * Performed By: Darline Fraser RDCS * * Reason For Study: Chest pain * BSA: 1.8 m2 * Compared to prior study, there is no significant change. * -- Conclusions -- * The left ventricle is normal in size. * There is moderate concentric left ventricular hypertrophy. * Apical wall motion abnormality may reflect pacemaker activation. * No regional wall motion abnormalities noted. * Ejection Fraction = 55-60%. * Aortic valve sclerosis moderate, without significant aortic valvular stenosis. * There is mild to moderate mitral annular calcification. * There is mild to moderate mitral regurgitation. * There is trace tricuspid regurgitation. Procedure Details * A complete two-dimensional transthoracic echocardiogram was performed (2D, M-mode, Doppler and color flow Doppler). Left Ventricle * The left ventricle is normal in size. * There is moderate concentric left ventricular hypertrophy. * Ejection Fraction = 55-60%. * Left ventricular systolic function is normal. * Apical wall motion abnormality may reflect pacemaker activation. * No regional wall motion abnormalities noted. Right Ventricle * The right ventricle is normal in size and function. * There is a pacemaker lead in the right ventricle. Atria * The left atrial size is normal. * Right atrial size is normal. * No ASD detected; PFO is not assessed. Mitral Valve * There is mild to moderate mitral annular calcification. * There is no mitral valve stenosis. * There is mild to moderate mitral regurgitation. Tricuspid Valve * The tricuspid valve anatomy is normal. * There is no tricuspid stenosis. * There is trace tricuspid regurgitation. * Doppler findings do not suggest pulmonary hypertension. Aortic Valve * The aortic valve is trileaflet. * Aortic valve sclerosis moderate, without significant aortic valvular stenosis. * No aortic regurgitation is present. Pulmonic Valve * The pulmonic valve is not well visualized. Great Vessels * The aortic root is normal size. Pericardium/Pleural * There is no pericardial effusion. Great Vessels * Normal inferior vena cava diameter and respiratory variation suggests normal central venous pressure. MMode 2D Measurements and Calculations IVSd 1.0 cm LVIDd 4.6 cm LVIDs 3.2 cm LVPWd 1.5 cm IVS/LVPW 0.70 FS 31.5 % EDV(Teich) 98.9 ml ESV(Teich) 40.1 ml EF(Teich) 59.5 % EDV(cubed) 99.3 ml ESV(cubed) 31.9 ml EF(cubed) 67.9 % LV mass(C)d 218.5 grams LV mass(C)dI 121.1 grams/m\S\2 SV(Teich) 58.8 ml SI(Teich) 32.6 ml/m\S\2 SV(cubed) 67.4 ml SI(cubed) 37.4 ml/m\S\2 Ao root diam 2.8 cm Ao root area 6.1 cm\S\2 ACS 1.6 cm LA dimension 2.6 cm asc Aorta Diam 2.8 cm LA/Ao 0.94 LVOT diam 1.5 cm LVOT area 1.8 cm\S\2 LVAd ap4 31.7 cm\S\2 LVLd ap4 8.3 cm EDV(MOD-sp4) 101.9 ml EDV(sp4-el) 103.5 ml LVAs ap4 19.8 cm\S\2 LVLs ap4 7.1 cm ESV(MOD-sp4) 47.9 ml ESV(sp4-el) 47.3 ml EF(MOD-sp4) 53.0 % EF(sp4-el) 54.4 % LVAd ap2 26.0 cm\S\2 LVLd ap2 8.0 cm EDV(MOD-sp2) 70.9 ml EDV(sp2-el) 71.2 ml LVAs ap2 17.7 cm\S\2 LVLs ap2 8.0 cm ESV(MOD-sp2) 33.2 ml ESV(sp2-el) 33.4 ml EF(MOD-sp2) 53.2 % EF(sp2-el) 53.1 % LVLd %diff -2.85 % EDV(MOD-bp) 85.2 ml LVLs %diff 11.4 % ESV(MOD-bp) 42.3 ml EF(MOD-bp) 50.4 % SV(MOD-sp4) 54.0 ml SI(MOD-sp4) 29.9 ml/m\S\2 SV(MOD-sp2) 37.7 ml SI(MOD-sp2) 20.9 ml/m\S\2 SV(MOD-bp) 42.9 ml SI(MOD-bp) 23.8 ml/m\S\2 SV(sp4-el) 56.3 ml SI(sp4-el) 31.2 ml/m\S\2 SV(sp2-el) 37.8 ml SI(sp2-el) 21.0 ml/m\S\2 Doppler Measurements and Calculations MV E max perla 106.6 cm/sec MV A max perla 84.1 cm/sec MV E/A 1.3 MV dec time 0.23 sec Ao V2 max 130.3 cm/sec Ao max PG 6.8 mmHg Ao max PG (full) 3.6 mmHg ARNALDO(V,A) 1.2 cm\S\2 ARNALDO(V,D) 1.2 cm\S\2 LV V1 max PG 3.2 mmHg LV V1 max 89.0 cm/sec PA V2 max 83.7 cm/sec PA max PG 2.8 mmHg PA acc slope 285.1 cm/sec\S\2 PA acc time 0.18 sec PI end-d perla 79.4 cm/sec TR max perla 188.2 cm/sec PA pr(Accel) -0.17 mmHg
[2018-07-01] MEDS ORDERED: CLONIDINE HCL 0.1 MG TAB PO PRN (11:15)
--- NOTE | 2018-07-01 12:25 | Cardiology Consultation ---
Cardiology Consultation Date of Consultation: Jul 01, 2018. Requesting Physician: Garfield Reason for Consultation: Chest pain Pt evaluation today including: conversation w/ patient, physical exam, chart review, lab review, review of studies, review of inpatient medication list, conversation w/ attending History of Present Illness Patient is a 72-year-old gentleman with a history of coronary disease and percutaneous intervention involving the right coronary artery who was brought to [facility] last evening from the local correctional facility for symptoms of chest discomfort. The patient reported the acute onset of very severe left upper pectoral chest pain approximately 1 hour after eating yesterday evening. This did not radiate to the back or arm. There was no associated jaw or neck pain. He claims to have had cold sweats at that time as well. The discomfort was improved with lying on his stomach, but persisted for over 2 hours. He is not appear to have associated dyspnea. He did report having his usual back pain around that time which affected his ability to quantify the severity of his chest discomfort. It seems that over time his symptoms improved but never fully resolved. This afternoon he states that he continues to have what he feels is residual discomfort at that location. Much improved since yesterday but not resolved entirely. The patient does struggle with chronic back pain. He has also had other symptoms of chest discomfort recently which were believed to be esophageal in nature. He does have some difficulty swallowing, and has been restricted to a liquid diet. Recently he did have some pain with swallowing of thicker liquids. 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 Patient continues to have swallowing difficulties an element of anorexia. He has chronic back pain. He has chronic leg pain. He does not report orthopnea or paroxysmal nocturnal dyspnea. Overall he feels better lying flat. All Other Systems: Reviewed and Negative Allergies Coded Allergies: Shellfish (Verified Allergy, Severe, shortness of breath , 06/25/18) STATES OK WITH CT CONTRAST Sulfa Antibiotics (Verified Allergy, Intermediate, severe rash, 06/25/18) Nitroglycerin (Verified Adverse Reaction, Mild, HEADACHE, 06/25/18) Prednisone (Verified Adverse Reaction, Mild, confusion, 06/25/18) Medications Current Inpatient Medications Medications (Trade) Dose Ordered Sig/Jessica Route Start Time Stop Time Status Last Admin Dose Admin Heparin Sodium (Porcine) (Heparin Sq 5000 Unit/0.5ml) 5,000 unit Q8 SQ 07/01/18 06:00 07/31/18 05:59 Future Hold 07/01/18 06:06 5,000 UNIT Acetaminophen (Tylenol Tab) 650 mg Q4H PRN PO 07/01/18 00:00 07/31/18 00:00 Al Hydrox/Mg Hydrox/Simethicone (Maalox Max Susp) 15 ml Q4H PRN PO 07/01/18 00:00 07/31/18 00:00 Ondansetron HCl (Zofran Inj) 4 mg Q6H PRN IV 07/01/18 00:00 07/31/18 00:00 Nitroglycerin (Nitrostat Tab) 0.4 mg UD PRN SL 07/01/18 00:00 07/31/18 00:00 Polyethylene (Miralax Powder Packet) 17 gm DAILY PRN PO 07/01/18 00:00 07/31/18 00:00 Albuterol Sulfate (Ventolin 0.083% 2.5MG/3ML Neb) 2.5 mg Q4H PRN INH 07/01/18 00:00 07/31/18 00:00 Amlodipine Besylate (Norvasc Tab) 2.5 mg DAILY PO 07/01/18 09:00 07/31/18 08:59 07/01/18 09:14 2.5 MG Aspirin (Ecotrin Tab) 81 mg DAILY PO 07/01/18 09:00 07/31/18 08:59 Future Hold 07/01/18 09:14 81 MG Atorvastatin Calcium (Lipitor Tab) 40 mg HS PO 07/01/18 21:00 07/31/18 20:59 Cholecalciferol (Vitamin D Tab) 1,000 inter.unit DAILY PO 07/01/18 09:00 07/31/18 08:59 Docusate Sodium (coLACE CAP) 100 mg BID PO 07/01/18 09:00 07/31/18 08:59 07/01/18 09:13 100 MG Fluticasone Propionate (Flonase Nasal [place]) 2 sprays DAILY JASKARAN 07/01/18 09:00 07/31/18 08:59 07/01/18 09:14 2 SPRAYS Levothyroxine Sodium (Synthroid Tab) 25 mcg DAILYBB PO 07/01/18 06:00 07/31/18 06:59 07/01/18 06:04 25 MCG Loperamide HCl (Imodium Cap) 2 mg Q8 PRN PO 07/01/18 00:00 07/31/18 00:00 Loratadine (Claritin Tab) 10 mg DAILY PO 07/01/18 09:00 07/31/18 08:59 07/01/18 09:13 10 MG Ondansetron HCl (Zofran Odt) 4 mg Q8 PRN SL 07/01/18 00:00 07/31/18 00:00 Senna (Senokot Tab) 8.6 mg Q12 PRN PO 07/01/18 00:00 07/31/18 00:00 Tiotropium [place] (Spiriva Handihaler Inhaler) 1 puff DAILY INH 07/01/18 09:00 07/31/18 08:59 07/01/18 09:15 1 PUFF Tramadol HCl (Ultram Tab) 50 mg Q6H PRN PO 07/01/18 00:00 07/31/18 00:00 [place] Carbonate ([place] Carbonate Tab) 300 mg HS PO 07/01/18 21:00 07/31/18 20:59 Pantoprazole Sodium (Protonix Tab) 40 mg BID PO 07/01/18 09:00 07/31/18 08:59 Polyethylene (Miralax Powder Packet) 17 gm DAILY PO 07/01/18 09:00 07/31/18 08:59 Clonidine HCl (Catapres Tab) 0.1 mg Q8 PRN PO 07/01/18 11:15 07/31/18 11:14 Morphine Sulfate (MoRPHine SULFATE INJ) 1 mg Q4HWA PRN IV 07/01/18 11:15 07/15/18 11:14 Metoprolol Succinate (Toprol Xl Tab) 50 mg DAILY PO 07/02/18 09:00 08/01/18 08:59 UNV Metoprolol Succinate (Toprol Xl Tab) 25 mg ONE PO 07/01/18 12:15 07/31/18 12:14 UNV Physical Exam Vital Signs Past 12 Hours Date Time Temp Pulse Resp B/P (MAP) Pulse Ox O2 Delivery O2 Flow Rate FiO2 07/01/18 12:00 Room Air 07/01/18 11:27 36.5 77 19 188/89 (122) 94 Room Air 07/01/18 08:00 Room Air 07/01/18 07:25 75 18 175/80 (111) 95 Room Air 07/01/18 07:00 36.6 68 18 160/77 (104) 96 Room Air 07/01/18 04:30 36.5 67 17 156/74 (101) 95 Room Air 07/01/18 01:20 36.5 72 17 174/68 Room Air 07/01/18 00:28 62 18 155/71 99 Room Air The patient is alert and oriented. Mood and affect appeared normal. He answered all questions appropriately. HEENT: Pupils are equal and reactive to light and accommodation. Extraocular movements are intact. The sclerae are anicteric. Neuro: Cranial nerves intact Neck: Patient's neck is supple. He has palpable carotid pulses bilaterally without bruits on auscultation. There is no evidence of jugular venous distention. The thyroid is not enlarged. Lungs: Clear to auscultation bilaterally. He has good air movement without use of accessory muscles. No rales wheezes or rhonchi. Cardiac: Heart demonstrates a regular rate and rhythm. Normal S1 and S2. No murmurs on examination. Chest: Pain was not reproducible palpation Pulses: The patient has palpable radial pulses bilaterally that are equal in intensity Extremities: There was no evidence of hypoperfusion. There is no cyanosis or clubbing. There is no edema. Lower extremities appear atrophic Skin: I did not appreciate any rashes on examination today. Data Laboratory Results: Last 24 Hours Test 06/30/18 21:25 07/01/18 05:59 07/01/18 11:39 White Blood Count 8.84 K/uL 7.21 K/uL Red Blood Count 4.88 M/uL 4.59 M/uL Hemoglobin 14.6 g/dL 13.3 g/dL Hematocrit 43.4 % 41.1 % Mean Corpuscular Volume 88.9 fL 89.5 fL Mean Corpuscular Hemoglobin 29.9 pg 29.0 pg Mean Corpuscular Hemoglobin Concent 33.6 g/dl 32.4 g/dl Platelet Count 315 K/uL 300 K/uL Mean Platelet Volume 9.3 fL 9.5 fL Neutrophils (%) (Auto) 48.3 % 41.3 % Lymphocytes (%) (Auto) 37.8 % 41.6 % Monocytes (%) (Auto) 9.4 % 10.1 % Eosinophils (%) (Auto) 3.8 % 6.1 % Basophils (%) (Auto) 0.5 % 0.8 % Neutrophils # (Auto) 4.27 K/uL 2.97 K/uL Lymphocytes # (Auto) 3.34 K/uL 3.00 K/uL Monocytes # (Auto) 0.83 K/uL 0.73 K/uL Eosinophils # (Auto) 0.34 K/uL 0.44 K/uL Basophils # (Auto) 0.04 K/uL 0.06 K/uL RDW Standard Deviation 47.7 fL 47.8 fL RDW Coefficient of Variation 14.8 % 14.6 % Immature Granulocyte % (Auto) 0.2 % 0.1 % Immature Granulocyte # (Auto) 0.02 K/uL 0.01 K/uL Prothrombin Time 10.1 SECONDS Prothromb Time International Ratio 1.0 Activated Partial Thromboplast Time 25.4 SECONDS Partial Thromboplastin Ratio 1.0 Sodium Level 138 mmol/L 139 mmol/L Potassium Level 4.3 mmol/L 3.9 mmol/L Chloride Level 107 mmol/L 108 mmol/L Carbon Dioxide Level 27 mmol/L 26 mmol/L Anion Gap 4.0 mmol/L 5.0 mmol/L Blood Urea Nitrogen 17 mg/dl 16 mg/dl Creatinine 0.70 mg/dl 0.70 mg/dl Est Creatinine Clear Calc Drug Dose 89.6 ml/min 85.0 ml/min Estimated GFR () 110.8 110.8 Estimated GFR (Non- 95.6 95.6 BUN/Creatinine Ratio 24.4 23.4 Random Glucose 88 mg/dl 82 mg/dl Calcium Level 10.3 mg/dl 9.8 mg/dl Troponin I 0.109 ng/ml 0.094 ng/ml Chemistry Specimen Hemolysis Total Creatine Kinase 107 U/L Creatine Kinase MB 2.8 ng/ml Creatine Kinase MB Ratio 2.6 Imaging: Chest her say obtained at the time of admission did not reveal any acute cardiopulmonary abnormalities EKG: Paced rhythm Telemetry reviewed: Paced rhythm without arrhythmia Echocardiogram performed today revealed preserved LV systolic function without regional wall motion abnormalities. [id number] mitral regurgitation. Essentially unchanged from earlier in the year. Assessment & Plan 1. Chest pain: Patient's initial symptom of chest pain could certainly be characteristic of cardiac ischemia. However the episode itself was fairly prolonged in duration and severe according to the patient. Does have very mild elevation in his cardiac biomarkers. However, he had a very low risk i.e. normal perfusion study performed couple of months ago and I think with the symptoms described we would have seen a more significant elevation in his biomarkers at this been an acute coronary syndrome. Unfortunately, his EKG is not helpful as he is paced all the time. He may have had some stress-induced injury related to either the severe pain, his current situation or higher blood pressures which have been recorded recently. He does have an element of LVH on echocardiogram as well which may predispose him to mild elevations under certain circumstances. Again, I do not feel this is related to an acute coronary syndrome. I think given his history and workup recently I would not advocate any additional stress testing. He should be continued on his standard regimen for coronary disease which includes aspirin, high-dose atorvastatin, amlodipine and beta blockade. 2. Coronary artery disease: Has a history of remote intervention to the right coronary artery. I do not believe that his current symptoms are related to an acute coronary syndrome. He should continue aggressive secondary prevention of coronary artery disease as noted above. 3. Hypertension: Patient has had higher blood pressures recently. This has been well documented in his record. Given his recent symptoms and the presence of a pacemaker, it would seem reasonable to increase his beta-naty. 4. Sick sinus syndrome: He appears to have normally functioning permanent pacemaker.
[2018-07-01 12:39] LABS: CKMB 3.1 ng/ml (0.5-3.6)
[2018-07-01] MEDS ORDERED: METOPROLOL SUCC 25MG EXT REL TAB PO STA (12:40)
[2018-07-01] MEDS: MoRPHine SULFATE 2 MG/ML CARP IV PRN ×3 (12:43→21:35)
--- NOTE | 2018-07-01 19:01 | Progress Note ---
Progress Note Date of Service Jul 01, 2018.
--- NOTE | 2018-07-01 19:02 | Progress Note ---
Internal Med Progress Note Date of Service: Jul 01, 2018. Provider Documentation: SUBJECTIVE: continues to complain of left sided chest pain 10/10 no SOB requesting pain meds IV Dilaudid frequently ( ordered for q3 hrs , requesting almost every 1 hr ) refusing SL nitro -as it does not do anything for him vitals remains stable no sign if distress, conversing animatedly while reporting 10/10 chest pain no hypoxia , no fever or chills has non productive cough pt been in correction for past few days pt reports he has been having swallowing difficulty for past few weeks had an chocking episode in [facility] [employer] ( event happened prior he was in correction ) feels food gets stuck in the middle of chest had EGD with dilatation of esophagus in March used to follow with speech pathology at [facility] prior to being in correction OBJECTIVE: Vital Signs-as noted below Exam: General-disheveled gentleman, no sign of distress, conversing Eyes-sclera non icteric , PERRLA/EOMI ENT-moist oral mucosa Neck-no JVD, no carotid bruit , trachea midline Lungs-no audible wheeze, faint crackles at base Heart-regular S1/S2 Abdomen-soft,non tender , active bowel sound Extremities-no lower ext edema, no rash or deformity, no reproducible chest wall tenderness Neuro-AAO X3, no focal neurological deficit Lab data as noted below. ASSESSMENT & PLAN: CHEST PAIN /HX OF CAD : chest pain symptom -atypical for angina ECHO : no evidence of ischemia.no wall motion abnormality The left ventricle is normal in size. There is moderate concentric left ventricular hypertrophy. Apical wall motion abnormality may reflect pacemaker activation. No regional wall motion abnormalities noted. Ejection Fraction = 55-60%. Aortic valve sclerosis moderate, without significant aortic valvular stenosis. There is mild to moderate mitral annular calcification. There is mild to moderate mitral regurgitation. There is trace tricuspid regurgitation. History of coronary artery disease, [place] in 2000 EKG shows paced rhythm Appreciate input from cardiology This patient's mild elevation of troponin possibly secondary to uncontrolled blood pressure Nc Lexiscan -normal perfusion study in 03/2018 Echocardiogram shows no wall motion abnormality Per cardiology patient does not need any additional cardiac workup or stress testing should continue with aspirin atorvastatin amlodipine Hartman recommend increase dose of beta-naty to 50 mg twice daily for better control of hypertension HISTORY OF SICK SINUS SYNDROME Status post pacemaker placement DYSPHAGIA : chronic issue prior hx of chest radiation for Non Hodgkins Lymphoma Had GI eval /EGD on last admission on 03/2018 : Impression: - Z-line, 40 cm from the incisors. - Benign-appearing esophageal stenosis. Dilated. - Esophageal mucosal changes suspicious for eosinophilic esophagitis. Biopsied. - Normal stomach. Biopsied. - Normal duodenal bulb and second portion of the duodenum. speech eval -recommended dental soft diet with aspiration precaution -pt reports of worsening dysphagia -ordered for full liquid diet aspiration precaution , speech eval GI eval requested , case discussed briefly with Dr Snowden NPCm Past midnight till GI eval in AM CODE STATUS : FULL CODE DVT PROPHYLAXIS sub heparin DISPOSITION return to Care Home when medically stable Vital Signs: Date Time Temp Pulse Resp B/P (MAP) Pulse Ox O2 Delivery O2 Flow Rate FiO2 07/02/18 07:20 36.7 63 20 177/73 (107) 96 Room Air 07/02/18 00:00 Room Air 07/01/18 23:12 36.6 65 16 144/74 (97) 96 Room Air 07/01/18 16:15 Room Air 07/01/18 14:27 36.6 70 18 163/69 (100) 92 Room Air 07/01/18 12:00 Room Air 07/01/18 11:27 36.5 77 19 188/89 (122) 94 Room Air 07/01/18 08:00 Room Air Lab Results: Results Past 24 Hours Test 07/01/18 11:39 Range/Units Total Creatine Kinase 116 39-308 U/L Creatine Kinase MB 3.1 0.5-3.6 ng/ml Creatine Kinase MB Ratio 2.7 0-3.0 Troponin I 0.091 0-0.045 ng/ml [place] Level < 0.2 0.6-1.2 mMOL/L
[2018-07-01] MEDS: SENNA 8.6 MG TAB PO PRN (20:49)
[2018-07-01] MEDS: ATORVASTATIN 20 MG TAB PO SCH (20:50)
[2018-07-01] MEDS: LITHIUM CARBONATE 300 MG TAB PO SCH (20:51)
[2018-07-02] MEDS: LEVOTHYROXINE 25 MCG TAB PO SCH (06:30)
[2018-07-02 07:20] VITALS: BP 177/73; PULSE 63; TEMP 36.7; O2SAT 96
[2018-07-02] MEDS: CHOLECALCIFEROL 1000 INTER.UNIT TAB PO SCH (09:00)
[2018-07-02] MEDS: PANTOprazole SOD 40 MG TAB PO SCH ×2 (09:00→20:38)
[2018-07-02] MEDS: POLYETHYLENE (MIRALAX) 17 GM PACK PO SCH (09:00)
[2018-07-02] MEDS: TIOTROPIUM BROMIDE 5 PUFF/90 MCG INH INH SCH (09:17)
[2018-07-02] MEDS: FLUTICASONE PROPIONATE NA SPR 16 GM BTL NAE SCH (09:17)
[2018-07-02] MEDS: LORATADINE 10 MG TAB PO SCH (09:17)
[2018-07-02] MEDS: DOCUSATE SODIUM 100 MG CAP PO SCH ×2 (09:19→20:35)
[2018-07-02] MEDS: AMLODIPINE BESYLATE 5 MG TAB PO SCH (09:22)
[2018-07-02] MEDS: METOPROLOL SUCC 50MG EXT REL TAB PO SCH (09:25)
[2018-07-02] MEDS: MoRPHine SULFATE 2 MG/ML CARP IV PRN ×4 (09:40→22:42)
--- NOTE | 2018-07-02 12:52 | Gastrointestinal Consultation ---
Gastrointestinal Consultation Date of Consultation: Jul 02, 2018 Attending Physician: Dr. Gomez Consulting Physician: Dr. Dockery/TIMMY Huertas Reason for Consultation: Dysphagia History of Present Illness Patient is a 72 year old male with a 8 month history of solid and liquid dysphagia evaluated in March [address] Cain for chest pain. At that time, he was noted to have mucosal changes with longitudinal furrowing, small caliber esophagus and white plaques in the esophagus and suspected EoE. Biopsies returned with chronic esophagitis with focal parakeratosis without hyphae. He was recommended to have a follow up EGD in 8 weeks but became lost to follow up. He was seen in the office as an outpatient by Veronika Purcell PA-C on Monday, June 29, 2018. An EGD was ordered as was a video swallow with CORN HUSKER evaluation. Prior to this evaluation, he became incarcerated and was reporting symptom of chest pain which prompted hospital evaluation. Patient has been seen and evaluated by Dr. Padron of cardiology and his symptoms are not felt to be an acute cardiopulmonary process. There is concern that the chest discomfort may be from known esophagitis. Additionally, the patient continues with solid food dysphagia. He is no longer having any difficulty with swallowing liquids. He did have a speech language evaluation during this admission and no concern for aspiration. He has been kept NPO since midnight last evening for possible GI evaluation. The patient remains on Protonix 40 mg BID. Past Medical/Surgical History Medical Problems: (1) Bilateral lower extremity edema Status: Acute (2) Chronic back pain Status: Chronic (3) Chronic pain of lower extremity Status: Acute (4) Elevated troponin Status: Acute (5) Left sided chest pain Status: Acute (6) Precordial chest pain Status: Acute (7) Situational disturbance Status: Acute Past Medical History: 1. Asthma with COPD 2. Bipolar 1 disorder 3. Esophagitis with stenosis 4. Chest pain 5. CAD 6. Foot drop 7. Hyperlipidemia 8. Hypertension 9. Hypothyroidism 10. Lymphoma in remission 11. OA 12. Paraplegia 13. Parathyroid disorder 14. Pulmonary nodule 15. Radiation myelopathy 16. Renal cancer Past Surgical History: 1. Colonoscopy 2. Partial nephrectomy 3. [employer] femoral-popliteal 4. Splenectomy 5. Tumor excision 6. EGD Family History Diabetes mellitus FATHER MOTHER FH: heart disease FATHER MOTHER Stroke FATHER Social History Smoking Status: Current Every Day Smoker Alcohol Use: occasionally Marital Status: single Housing Status: other (incarerated) Occupation Status: disabled Allergies Coded Allergies: Shellfish (Verified Allergy, Severe, shortness of breath , 06/25/18) STATES OK WITH CT CONTRAST Sulfa Antibiotics (Verified Allergy, Intermediate, severe rash, 06/25/18) Nitroglycerin (Verified Adverse Reaction, Mild, HEADACHE, 06/25/18) Prednisone (Verified Adverse Reaction, Mild, confusion, 06/25/18) Current Medications Home Meds and Scripts Medications Dose Route/Sig Max Daily Dose Days Date Category Prilosec (Omeprazole) 40 Mg Cap 40 Mg PO BID 06/30/18 Reported Polyethylene Glycol 3350 1 Pow Pow 17 Gm PO DAILY 06/30/18 Reported Metoprolol Succinate ER (Metoprolol Succinate) 25 Mg Tabcr 25 Mg PO DAILY 06/30/18 Reported Norvasc (Amlodipine Besylate) 2.5 Mg Tab 2.5 Mg PO DAILY 06/30/18 Reported Zofran Odt (Ondansetron HCl) 4 Mg Tab 4 Mg SL Q8 PRN 06/25/18 Reported Imodium (Loperamide HCl) 2 Mg Cap 2 Mg PO Q8 PRN 06/25/18 Reported Flonase Allergy Relief (Fluticasone Propionate (Nasal)) 50 Mcg/Act Spr 2 Sprays JASKARAN DAILY 06/25/18 Reported Proventil 0.083% 2.5MG/3ML (Albuterol Sulf) 2.5 Mg/3 Ml Nebu 2.5 Mg NEB Q4H PRN 06/25/18 Reported Tylenol Arthritis Ext Rel (Acetaminophen) 650 Mg Cplt 650 Mg PO Q4H PRN 06/25/18 Reported Ultram (Tramadol HCl) 50 Mg Tab 50 Mg PO Q6H PRN 06/25/18 Reported D3-1000 (Cholecalciferol) 1,000 Unit Tab 1,000 Inter.unit PO WK 06/25/18 Reported Spiriva Handihaler (Tiotropium Skipwith) 30 Puff/540 Mcg Aerp 1 Cap INH DAILY 06/25/18 Reported Aspirin EC Low Dose (Aspirin) 81 Mg Ectab 81 Mg PO DAILY 06/07/16 Reported Claritin (Loratadine) 10 Mg Tab 10 Mg PO DAILY 06/07/16 Reported Senokot (Senna) 8.6 Mg Tab 8.6 Mg PO Q12 PRN 06/07/16 Reported Lipitor (Atorvastatin Calcium) 40 Mg Tab 40 Mg PO HS 02/29/16 Reported [place] Carbonate 300 Mg Cap 300 Mg PO HS 09/16/15 Reported Docusate Sodium 100 Mg Cap 100 Mg PO BID 02/12/15 Reported Synthroid (Levothyroxine Sodium) 25 Mcg Tab 25 Mcg PO QAM 02/20/13 Reported Review of Systems Constitutional: + fatigue Eyes: No problem reported ENT: + see HPI Respiratory: No cough, No shortness of breath Cardiac: + see HPI, No palpitations Abdomen: + see HPI, No pain, No nausea, No vomiting, No diarrhea, No constipation, No GI bleeding Musculoskeletal: No problem reported Male : No problem reported Psych: No problem reported Heme: No abnormal bleeding/bruising Skin: No new/changing skin lesions Physical Exam Date Time Temp Pulse Resp B/P (MAP) Pulse Ox O2 Delivery O2 Flow Rate FiO2 07/02/18 08:00 Room Air 07/02/18 07:20 36.7 63 20 177/73 (107) 96 Room Air 07/02/18 00:00 Room Air 07/01/18 23:12 36.6 65 16 144/74 (97) 96 Room Air 07/01/18 16:15 Room Air 07/01/18 14:27 36.6 70 18 163/69 (100) 92 Room Air General Appearance: no apparent distress Eyes: EOMI Respiratory/Chest: lungs clear, no respiratory distress Cardiovascular: regular rate, rhythm, no murmur Abdomen: normal bowel sounds, non tender, soft Extremities: no pedal edema Neurologic/Psych: alert, normal mood/affect, oriented x 3 Skin: warm/dry Impression Patient is a 72 year old male with a history of esophagitis and dysphagia admitted with atypical chest pain and persistent dysphagia. Plan 1. Keep NPO for now. 2. EGD recommended for today for further evaluation of symptoms. 3. Continue Pantoprazole 40 mg twice daily. 4. Additional recommendations pending results of testing. Thank you for allowing us to participate in the care of this mutual patient. If you have questions or concerns, please do not hesitate to contact us. Agree with TIMMY Huertas as above Abd: Soft, NT, ND, +BS Continue current therapy OK to give regular diet tonight, discussed with Dr. Coppes, then NPO after midnight EGD in AM
[2018-07-02 15:27] VITALS: BP 172/71; PULSE 69; TEMP 36.8; O2SAT 96
[2018-07-02] MEDS: SENNA 8.6 MG TAB PO PRN (16:59)
[2018-07-02] MEDS: ATORVASTATIN 20 MG TAB PO SCH (20:37)
[2018-07-02] MEDS: LITHIUM CARBONATE 300 MG TAB PO SCH (20:37)
--- NOTE | 2018-07-02 21:48 | Progress Note ---
Medicine Progress Note Date & Time of Visit: Jul 02, 2018 at 09:30 . Subjective CC: Follow-up visit for multiple problems. HPI: Persistent mid chest discomfort. Vomited undigested food yesterday without melena or hematemesis. No shortness of breath. Chronic low back pain. ROS: General- no fever, no chills Resp- no cough; no shortness of breath Cardiac- as noted above in HPI GI- as noted above in HPI - no dysuria . Objective Last 8 Hrs Date Time Temp Pulse Resp B/P (MAP) Pulse Ox O2 Delivery O2 Flow Rate FiO2 07/02/18 20:03 Room Air 07/02/18 15:27 36.8 69 18 172/71 (104) 96 Room Air Physical Exam: General- lying in bed, no distress Lungs- clear to auscultation; no respiratory distress Cardiovascular- RRR; no gallop appreciated; no JVD; no pretibial edema Abdomen- + bowel sounds, soft, nontender Extremities- no cyanosis; no calf tenderness Neuro- alert, oriented Skin- warm & dry . Assessment & Plan CHEST PAIN / CAD History of ischemic heart disease. Nonischemic nuclear stress test a few months ago. Presented with chest pain. EKG showed paced rhythm. Serum troponin slightly elevated. Cardiology consulted. [place] that chest pain was noncardiac in nature. Usual cardiac medications continued. DYSPHAGIA Patient has history of esophagitis and esophageal stricture, status post dilatation. Experiencing dysphagia to solids Suspected that esophageal disease maybe causing current symptoms. GI consulted. COPD Stable. VTE PROPHYLAXIS SCD's. DISPOSITION Expected return to [facility]. . Current Inpatient Medications: Current Inpatient Medications Medications (Trade) Dose Ordered Sig/Jessica Route Start Time Stop Time Status Last Admin Dose Admin Heparin Sodium (Porcine) (Heparin Sq 5000 Unit/0.5ml) 5,000 unit Q8 SQ 07/01/18 06:00 07/31/18 05:59 Future Hold 07/01/18 06:06 5,000 UNIT Acetaminophen (Tylenol Tab) 650 mg Q4H PRN PO 07/01/18 00:00 07/31/18 00:00 Al Hydrox/Mg Hydrox/Simethicone (Maalox Max Susp) 15 ml Q4H PRN PO 07/01/18 00:00 07/31/18 00:00 Ondansetron HCl (Zofran Inj) 4 mg Q6H PRN IV 07/01/18 00:00 07/31/18 00:00 Nitroglycerin (Nitrostat Tab) 0.4 mg UD PRN SL 07/01/18 00:00 07/31/18 00:00 Polyethylene (Miralax Powder Packet) 17 gm DAILY PRN PO 07/01/18 00:00 07/31/18 00:00 07/01/18 13:19 17 GM Albuterol Sulfate (Ventolin 0.083% 2.5MG/3ML Neb) 2.5 mg Q4H PRN INH 07/01/18 00:00 07/31/18 00:00 Amlodipine Besylate (Norvasc Tab) 2.5 mg DAILY PO 07/01/18 09:00 07/31/18 08:59 07/02/18 09:22 2.5 MG Aspirin (Ecotrin Tab) 81 mg DAILY PO 07/01/18 09:00 07/31/18 08:59 Future Hold 07/01/18 09:14 81 MG Atorvastatin Calcium (Lipitor Tab) 40 mg HS PO 07/01/18 21:00 07/31/18 20:59 07/01/18 20:50 40 MG Cholecalciferol (Vitamin D Tab) 1,000 inter.unit DAILY PO 07/01/18 09:00 07/31/18 08:59 Docusate Sodium (coLACE CAP) 100 mg BID PO 07/01/18 09:00 07/31/18 08:59 07/02/18 20:35 100 MG Fluticasone Propionate (Flonase Nasal [place]) 2 sprays DAILY JASKARAN 07/01/18 09:00 07/31/18 08:59 07/02/18 09:17 2 SPRAYS Levothyroxine Sodium (Synthroid Tab) 25 mcg DAILYBB PO 07/01/18 06:00 07/31/18 06:59 07/01/18 06:04 25 MCG Loperamide HCl (Imodium Cap) 2 mg Q8 PRN PO 07/01/18 00:00 07/31/18 00:00 Loratadine (Claritin Tab) 10 mg DAILY PO 07/01/18 09:00 07/31/18 08:59 07/02/18 09:17 10 MG Ondansetron HCl (Zofran Odt) 4 mg Q8 PRN SL 07/01/18 00:00 07/31/18 00:00 Senna (Senokot Tab) 8.6 mg Q12 PRN PO 07/01/18 00:00 07/31/18 00:00 07/02/18 16:59 8.6 MG Tiotropium [place] (Spiriva Handihaler Inhaler) 1 puff DAILY INH 07/01/18 09:00 07/31/18 08:59 07/02/18 09:17 1 PUFF Tramadol HCl (Ultram Tab) 50 mg Q6H PRN PO 07/01/18 00:00 07/31/18 00:00 [place] Carbonate ([place] Carbonate Tab) 300 mg HS PO 07/01/18 21:00 07/31/18 20:59 07/01/18 20:51 300 MG Pantoprazole Sodium (Protonix Tab) 40 mg BID PO 07/01/18 09:00 07/31/18 08:59 07/02/18 20:38 40 MG Polyethylene (Miralax Powder Packet) 17 gm DAILY PO 07/01/18 09:00 07/31/18 08:59 Clonidine HCl (Catapres Tab) 0.1 mg Q8 PRN PO 07/01/18 11:15 07/31/18 11:14 07/01/18 12:42 0.1 MG Morphine Sulfate (MoRPHine SULFATE INJ) 1 mg Q4HWA PRN IV 07/01/18 11:15 07/15/18 11:14 07/02/18 18:01 1 MG Metoprolol Succinate (Toprol Xl Tab) 50 mg DAILY PO 07/02/18 09:00 08/01/18 08:59 07/02/18 09:25 50 MG
[2018-07-02 23:18] VITALS: BP 134/58; PULSE 62; TEMP 36.7; O2SAT 95
[2018-07-03] MEDS: MoRPHine SULFATE 2 MG/ML CARP IV PRN ×3 (03:27→16:01)
[2018-07-03] MEDS: LEVOTHYROXINE 25 MCG TAB PO SCH (06:28)
[2018-07-03 07:27] VITALS: BP 159/67; PULSE 64; TEMP 36.4; O2SAT 96
[2018-07-03 08:00] VITALS: O2SAT 96
[2018-07-03] MEDS: POLYETHYLENE (MIRALAX) 17 GM PACK PO SCH (09:00)
[2018-07-03] MEDS: CHOLECALCIFEROL 1000 INTER.UNIT TAB PO SCH (09:00)
[2018-07-03] MEDS ORDERED: PROPOFOL IV EMULSION 10 MG/ML 20 ML VIAL ONE (09:30)
[2018-07-03] MEDS ORDERED: LIDOCAINE HCL 2% 2 ML VIAL (20MG/ML) ONE (09:30)
--- NOTE | 2018-07-03 09:53 | GI REPORT ---
Patient Name: Guillermo Siegel Procedure Date: 07/03/2018 9:37 AM Date of : 1945 Admit Type: Inpatient Age: 72 Gender: Male Attending MD: Adrian Dockery DO Procedure: Upper GI endoscopy Providers: Adrian Dockery DO [facility] Indications: Unexplained chest pain Medicines: Monitored Anesthesia Care Complications: No immediate complications. Estimated Blood Loss: Estimated blood loss: none. Procedure: Pre-Anesthesia Assessment: - Prior to the procedure, a History and Physical was performed, and patient medications and allergies were reviewed. The patient's tolerance of previous anesthesia was also reviewed. The risks and benefits of the procedure and the sedation options and risks were discussed with the patient. All questions were answered, and informed consent was obtained. Prior Anticoagulants: The patient last took aspirin 2 days prior to the procedure and last took heparin on the day of the procedure. ASA Grade Assessment: IV - A patient with severe systemic disease that is a constant threat to life. After reviewing the risks and benefits, the patient was deemed in satisfactory condition to undergo the procedure. After obtaining informed consent, the endoscope was passed under direct vision. Throughout the procedure, the patient's blood pressure, pulse, and oxygen saturations were monitored continuously. The Scope was introduced through the mouth, and advanced to the second part of duodenum. The upper GI endoscopy was accomplished without difficulty. The patient tolerated the procedure well. Findings: The examined esophagus was normal. A small hiatal hernia was present. Localized mild inflammation characterized by erythema was found in the gastric antrum. Biopsies were taken with a cold forceps for histology. The examined duodenum was normal. Impression: - Normal esophagus. - Small hiatal hernia. - Gastritis. Biopsied. - Normal examined duodenum. Recommendation: - Resume previous diet. - Continue present medications. - Await pathology results. - Return to primary care physician as previously scheduled. Adrian Dockery DO 07/03/2018 9:53:31 AM This report has been signed electronically. Note Initiated On: 07/03/2018 9:37 AM Number of Addenda: 0 I attest to the content of the Intraoperative Record and orders documented therein, exceptions below {[id number]}
--- NOTE | 2018-07-03 10:04 | Anesthesiology Progress Note ---
Anesthesia Post Op Note Date & Time Jul 03, 2018 at 10:04 Vital Signs Pain Intensity: 7.0 Vital Signs Past 12 Hours Date Time Temp Pulse Resp B/P (MAP) Pulse Ox O2 Delivery O2 Flow Rate FiO2 07/03/18 09:50 60 20 115/55 (75) 96 Room Air 07/03/18 09:13 36.6 63 20 150/77 (101) 96 Room Air 07/03/18 07:27 36.4 64 18 159/67 (97) 96 Room Air 07/03/18 00:00 Room Air 07/02/18 23:18 36.7 62 18 134/58 (83) 95 Room Air Notes Mental Status: alert / awake / arousable, participated in evaluation Pt Amnestic to Procedure: Yes Nausea / Vomiting: adequately controlled Pain: adequately controlled Airway Patency, RR, SpO2: stable & adequate BP & HR: stable & adequate Hydration State: stable & adequate Anesthetic Complications: no major complications apparent
[2018-07-03] MEDS ORDERED: EpHEDrine SULFATE INJ 50 MG/ML AMP IV PRN (10:15)
[2018-07-03] MEDS ORDERED: ATROPINE SULFATE 0.1 MG/ML 5ML SYR IV PRN (10:15)
[2018-07-03] MEDS: AMLODIPINE BESYLATE 5 MG TAB PO SCH (13:42)
[2018-07-03] MEDS: LORATADINE 10 MG TAB PO SCH (13:43)
[2018-07-03] MEDS: PANTOprazole SOD 40 MG TAB PO SCH (13:43)
[2018-07-03] MEDS: FLUTICASONE PROPIONATE NA SPR 16 GM BTL NAE SCH (13:43)
[2018-07-03] MEDS: DOCUSATE SODIUM 100 MG CAP PO SCH (13:45)
[2018-07-03] MEDS: TIOTROPIUM BROMIDE 5 PUFF/90 MCG INH INH SCH (13:45)
[2018-07-03] MEDS: METOPROLOL SUCC 50MG EXT REL TAB PO SCH (13:46)
[2018-07-03 15:19] VITALS: BP 164/77; PULSE 75; TEMP 36.7; O2SAT 95
--- NOTE | 2018-07-03 15:49 | Discharge Instructions ---
Discharge Instructions Date of Service Jul 03, 2018. Admission Reason for Admission: chest pain . Discharge Discharge Diagnosis / Problem: hiatal hernia, gastritis Discharge Goals Goal(s): Decrease discomfort, Improve disease control Activity Recommendations Activity Limitations: resume your previous activity . Instructions / Follow-Up Instructions / Follow-Up FOLLOW-UP APPOINTMENTS: GASTROENTEROLOGY Dr. Dockery in 2-3 weeks. Please contact office for appointment. CARDIOLOGY Dr. Padron as scheduled. OTHER INSTRUCTIONS: Dr. Padron felt that you did not have a heart attack. Continue taking your usual heart medications. Upper endoscopy by Dr. Dockery showed a hiatal hernia and gastritis. Eat in the upright position. Eat small bites and chew food thoroughly. Avoid eating too quickly and over-eating. Don't drink too much coffee. Do not take anti-inflammatory medications like ibuprofen (Motrin, Advil, and others) and naproxen (Aleve). Continue taking omeprazole (Prilosec) 40 mg twice a day. Seek medical attention if you have: * temperature above 101 * chest pain or trouble breathing * abdominal pain, nausea, vomiting * diarrhea, dark stools or bloody stools * any unanswered questions or concerns Call 911 if symptoms are severe. Call if you have any questions or problems. You can reach a [facility] hospitalist on duty at [facility] 24 hours a day by calling [phone]. Please take good care of yourself. Sunil Gomez . Current Hospital Diet Patient's current hospital diet: AHA Diet (Heart Healthy) Discharge Diet Recommended Diet: AHA Diet (Heart Healthy) Procedures Procedures Performed: EGD (UPPER ENDOSCOPY) WITH BIOPSY echocardiogram Pending Studies Studies pending at discharge: yes List of pending studies: biopsy results from EGD (upper endoscopy) Medical Emergencies . Who to Call and When: Medical Emergencies: If at any time you feel your situation is an emergency, please call 911 immediately. . Non-Emergent Contact Non-Emergency issues call your: Primary Care Provider, Strategic Account Executive, Rehabilitation Aide/Scheduler, Hospital Doctor . . "Provider Documentation" section prepared by Sunil Gomez. . [place] Drug Monitoring Program Search Results: patient reviewed within database, no issues identified
--- NOTE | 2018-07-03 15:50 | Progress Note ---
Medicine Progress Note Date & Time of Visit: Jul 03, 2018 at 15:50 . Subjective EGD performed this morning and went well- results as discussed below. Tolerating diet. . Objective Last 8 Hrs Date Time Temp Pulse Resp B/P (MAP) Pulse Ox O2 Delivery O2 Flow Rate FiO2 07/03/18 15:19 36.7 75 18 164/77 (106) 95 Room Air 07/03/18 10:27 61 20 149/60 (89) 98 Room Air 07/03/18 10:17 60 20 142/53 (82) 98 Room Air 07/03/18 10:05 66 20 121/46 (71) 97 Room Air 07/03/18 09:50 60 20 115/55 (75) 96 Room Air 07/03/18 09:13 36.6 63 20 150/77 (101) 96 Room Air 07/03/18 08:00 96 Room Air Physical Exam: General- lying in bed, no distress Lungs- clear to auscultation; no respiratory distress Cardiovascular- RRR; no gallop appreciated; no JVD; no pretibial edema Abdomen- + bowel sounds, soft, nontender Extremities- no cyanosis; no calf tenderness Neuro- alert, oriented Skin- warm & dry . Assessment & Plan CHEST PAIN / CAD History of ischemic heart disease. Nonischemic nuclear stress test a few months ago. Presented with chest pain. EKG showed paced rhythm. Serum troponin slightly elevated. Cardiology consulted. Echo did not show any regional wall motion abnormalities. It was felt that chest pain was noncardiac in nature. Continue aspirin, metoprolol, amlodipine, atorvastatin. DYSPHAGIA Patient has history of esophagitis and esophageal stricture, status post dilatation. He was experiencing dysphagia to solids Suspected that esophageal disease may be etiology of chest pain. GI consulted. EGD performed and demonstrated small hiatal hernia and gastritis. Biopsies performed; results pending at time of discharge. Follow-up with GI. COPD Stable. CHRONIC PAIN Continue usual regimen. VTE PROPHYLAXIS SCD's. DISPOSITION Returned to [facility]. Cardiology follow-up with Dr. Padron. GI follow-up with Dr. Dockery. . Current Inpatient Medications: Current Inpatient Medications Medications (Trade) Dose Ordered Sig/Jessica Route Start Time Stop Time Status Last Admin Dose Admin Heparin Sodium (Porcine) (Heparin Sq 5000 Unit/0.5ml) 5,000 unit Q8 SQ 07/01/18 06:00 07/31/18 05:59 Future Hold 07/01/18 06:06 5,000 UNIT Acetaminophen (Tylenol Tab) 650 mg Q4H PRN PO 07/01/18 00:00 07/31/18 00:00 Al Hydrox/Mg Hydrox/Simethicone (Maalox Max Susp) 15 ml Q4H PRN PO 07/01/18 00:00 07/31/18 00:00 Ondansetron HCl (Zofran Inj) 4 mg Q6H PRN IV 07/01/18 00:00 07/31/18 00:00 Nitroglycerin (Nitrostat Tab) 0.4 mg UD PRN SL 07/01/18 00:00 07/31/18 00:00 Polyethylene (Miralax Powder Packet) 17 gm DAILY PRN PO 07/01/18 00:00 07/31/18 00:00 07/01/18 13:19 17 GM Albuterol Sulfate (Ventolin 0.083% 2.5MG/3ML Neb) 2.5 mg Q4H PRN INH 07/01/18 00:00 07/31/18 00:00 Amlodipine Besylate (Norvasc Tab) 2.5 mg DAILY PO 07/01/18 09:00 07/31/18 08:59 07/03/18 13:42 2.5 MG Aspirin (Ecotrin Tab) 81 mg DAILY PO 07/01/18 09:00 07/31/18 08:59 Future Hold 07/01/18 09:14 81 MG Atorvastatin Calcium (Lipitor Tab) 40 mg HS PO 07/01/18 21:00 07/31/18 20:59 07/01/18 20:50 40 MG Cholecalciferol (Vitamin D Tab) 1,000 inter.unit DAILY PO 07/01/18 09:00 07/31/18 08:59 Docusate Sodium (coLACE CAP) 100 mg BID PO 07/01/18 09:00 07/31/18 08:59 07/03/18 13:45 100 MG Fluticasone Propionate (Flonase Nasal [place]) 2 sprays DAILY JASKARAN 07/01/18 09:00 07/31/18 08:59 07/03/18 13:43 2 SPRAYS Levothyroxine Sodium (Synthroid Tab) 25 mcg DAILYBB PO 07/01/18 06:00 07/31/18 06:59 07/01/18 06:04 25 MCG Loperamide HCl (Imodium Cap) 2 mg Q8 PRN PO 07/01/18 00:00 07/31/18 00:00 Loratadine (Claritin Tab) 10 mg DAILY PO 07/01/18 09:00 07/31/18 08:59 07/03/18 13:43 10 MG Ondansetron HCl (Zofran Odt) 4 mg Q8 PRN SL 07/01/18 00:00 07/31/18 00:00 Senna (Senokot Tab) 8.6 mg Q12 PRN PO 07/01/18 00:00 07/31/18 00:00 07/02/18 16:59 8.6 MG Tiotropium [place] (Spiriva Handihaler Inhaler) 1 puff DAILY INH 07/01/18 09:00 07/31/18 08:59 07/03/18 13:45 1 PUFF Tramadol HCl (Ultram Tab) 50 mg Q6H PRN PO 07/01/18 00:00 07/31/18 00:00 [place] Carbonate ([place] Carbonate Tab) 300 mg HS PO 07/01/18 21:00 07/31/18 20:59 07/01/18 20:51 300 MG Pantoprazole Sodium (Protonix Tab) 40 mg BID PO 07/01/18 09:00 07/31/18 08:59 07/03/18 13:43 40 MG Polyethylene (Miralax Powder Packet) 17 gm DAILY PO 07/01/18 09:00 07/31/18 08:59 Clonidine HCl (Catapres Tab) 0.1 mg Q8 PRN PO 07/01/18 11:15 07/31/18 11:14 07/01/18 12:42 0.1 MG Morphine Sulfate (MoRPHine SULFATE INJ) 1 mg Q4HWA PRN IV 07/01/18 11:15 07/15/18 11:14 07/03/18 08:42 1 MG Metoprolol Succinate (Toprol Xl Tab) 50 mg DAILY PO 07/02/18 09:00 08/01/18 08:59 07/03/18 13:46 50 MG
[2018-07-03 15:55] VITALS: BP 164/77; PULSE 75; TEMP 36.7; O2SAT 95
--- NOTE | 2018-07-03 22:52 | Discharge Summary ---
Discharge Summary Date of Service Jul 03, 2018. Discharge Summary Admission Date: Jul 01, 2018 at 00:06 Discharge Date: Jul 03, 2018 Principal Diagnosis: chest pain- acute SC ruled out OTHER ACUTE DIAGNOSES: dysphagia hiatal hernia gastritis . Secondary Diagnoses/Problems: Chronic and Resolved Medical Problems: (1) Bipolar 1 disorder Status: Chronic (2) CAD (coronary artery disease) Permanent Comment: s/p RCA stent Status: Chronic (3) Chronic back pain Status: Chronic (4) COPD (chronic obstructive pulmonary disease) Status: Chronic (5) DM type 2 (diabetes mellitus, type 2) Status: Chronic (6) Dyslipidemia Status: Chronic (7) History of hodgkin's lymphoma Permanent Comment: s/p radiation Status: Chronic (8) History of kidney cancer Permanent Comment: s/p partial nephrectomy Status: Chronic (9) Hyperparathyroidism Status: Chronic (10) Hypertension Status: Chronic (11) Hypothyroidism Status: Chronic (12) Incomplete paraplegia Status: Chronic (13) Nondisplaced bimalleolar fracture of left ankle Status: Resolved (14) Pacemaker Status: Chronic (15) Pulmonary nodule Status: Chronic (16) Radiation induced myelitis Status: Chronic (17) Symptomatic bradycardia Status: Chronic (18) Vitamin D deficiency Status: Chronic Surgical Problems: (1) H/O partial nephrectomy Status: Chronic (2) S/p abdominal wall deep tumor excision Status: Chronic (3) S/P coronary artery stent placement Permanent Comment: RCA Status: Chronic (4) S/P femoral-popliteal bypass surgery Status: Chronic (5) S/P placement of cardiac pacemaker Status: Chronic (6) S/P splenectomy Status: Chronic . Procedures: cardiac monitoring echo EGD . Consultations: Cardiology with Dr. Padron. GI with Dr. Dockery. . Pending Studies/Follow-Up: Biopsy results from EGD pending at time of discharge. . Medication Reconciliation Continued Medications: Acetaminophen (Tylenol Arthritis Ext Rel) 650 Mg Cplt 650 MG PO Q4H PRN for Pain, CAP Albuterol Sulf (Proventil 0.083% 2.5MG/3ML) 2.5 Mg/3 Ml Nebu 2.5 MG NEB Q4H PRN for SOB/Wheezing, EA Amlodipine Besylate (Norvasc) 2.5 Mg Tab 2.5 MG PO DAILY Aspirin (Aspirin EC Low Dose) 81 Mg Ectab 81 MG PO DAILY Atorvastatin (Lipitor) 40 Mg Tab 40 MG PO HS, TAB Cholecalciferol (D3-1000) 1,000 Unit Tab 1000 INTER.UNIT PO WK Docusate Sodium (Docusate Sodium) 100 Mg Cap 100 MG PO BID Fluticasone Propionate (Nasal) (Flonase Allergy Relief) 50 Mcg/Act Spr 2 SPRAYS JASKARAN DAILY Levothyroxine Sodium (Synthroid) 25 Mcg Tab 25 MCG PO QAM, TAB [place] Carbonate ([place] Carbonate) 300 Mg Cap 300 MG PO HS, CAP Loperamide Hcl (Imodium) 2 Mg Cap 2 MG PO Q8 PRN for Diarrhea, CAP Loratadine (Claritin) 10 Mg Tab 10 MG PO DAILY, TAB Metoprolol Succinate (Metoprolol Succinate ER) 25 Mg Tabcr 25 MG PO DAILY Omeprazole (Prilosec) 40 Mg Cap 40 MG PO BID, CAP Ondasetron Odt (Zofran Odt) 4 Mg Tab 4 MG SL Q8 PRN for Nausea or Vomiting, TAB Polyethylene Glycol 3350 (Polyethylene Glycol 3350) 1 Pow Pow 17 GM PO DAILY Senna (Senokot) 8.6 Mg Tab 8.6 MG PO Q12 PRN for Constipation, TAB Tiotropium [place] (Spiriva Handihaler) 30 Puff/540 Mcg Aerp 1 CAP INH DAILY, CAP Tramadol (Ultram) 50 Mg Tab 50 MG PO Q6H PRN for Pain, TAB Admission Information HPI (per Admitting provider): This is 72-year-old male with past medical history significant for CAD status post RCA stent, sick sinus syndrome status post pacemaker, diabetes, hypertension, COPD, chronic back pain, bipolar disorder, radiation myelopathy, currently in the [facility], presents with chest pain. The patient says he has chronic back pain and he recently was also diagnosed with esophageal stenosis while he was in the hospital in 03/2018, and at that time he was s/p egd and dilatation of oesophageal stenosis presents with chest pain. He says he thought initially it was coming from the back or coming from the esophagus. It was on the left side of chest and radiated to his left arm up and down, on and off, for couple of hours, about 6/10 in severity,and was sweating then he thought it was coming from the heart and came to the ER. IV Morphine was given in the ER and his back pain resolved, but he still has mild chest discomfort. Currently, resting comfortably and is hemodynamically stable. Denies any other complaints. He says he is paraplegic and mostly does not ambulate. Denies any headaches. No blurred vision, no dizziness, no earache, no runny nose, no sore throat, no shortness of breath, no cough, no fever, no chills, no nausea, no abdominal pain. Normal bowel and bladder movements. No blood in the stools. No blood in the urine. No skin rash. . Physical Exam (per Admitting): GENERAL: The patient is of moderate build, not in distress. VITAL SIGNS: Temperature 36.6, pulse 63, respiratory rate 18, blood pressure 164/77, oxygen 99% on room air. HEENT: No pallor, no icterus. Pupils equal, round, reactive to light. NECK: No JVD. No neck masses. No carotid bruits. CARDIOVASCULAR: S1, S2 heard, regular rate and rhythm, no murmur, no gallop. RESPIRATORY SYSTEM: Normal AP diameter. No accessory muscle use. No wheezing. No crackles. ABDOMEN: Soft, bowel sounds present. Nontender. No distention. CENTRAL NERVOUS SYSTEM: Nonfocal. EXTREMITIES: No edema, no erythema. . Hospital Course CHEST PAIN / CAD History of ischemic heart disease. Nonischemic nuclear stress test a few months ago. Presented with chest pain. EKG showed paced rhythm. Serum troponin slightly elevated. Cardiology consulted. Echo did not show any regional wall motion abnormalities. It was felt that chest pain was noncardiac in nature. Continue aspirin, metoprolol, amlodipine, atorvastatin. DYSPHAGIA Patient has history of esophagitis and esophageal stricture, status post dilatation. He was experiencing dysphagia to solids Suspected that esophageal disease may be etiology of chest pain. GI consulted. EGD performed and demonstrated small hiatal hernia and gastritis. Biopsies performed; results pending at time of discharge. Continue PPI. Follow-up with GI. COPD Stable. CHRONIC PAIN Continue usual regimen. VTE PROPHYLAXIS SCD's. DISPOSITION Returned to [facility]. Cardiology follow-up with Dr. Padron. GI follow-up with Dr. Dockery. . Total time spent on discharge = 40 min. This includes examination of the patient, discharge planning, medication reconciliation, and communication with other providers. . Discharge Instructions Discharge Instructions Date of Service Jul 03, 2018. Admission Reason for Admission: chest pain . Discharge Discharge Diagnosis / Problem: hiatal hernia, gastritis Discharge Goals Goal(s): Decrease discomfort, Improve disease control Activity Recommendations Activity Limitations: resume your previous activity . Instructions / Follow-Up Instructions / Follow-Up FOLLOW-UP APPOINTMENTS: GASTROENTEROLOGY Dr. Dockery in 2-3 weeks. Please contact office for appointment. CARDIOLOGY Dr. Padron as scheduled. OTHER INSTRUCTIONS: Dr. Padron felt that you did not have a heart attack. Continue taking your usual heart medications. Upper endoscopy by Dr. Dockery showed a hiatal hernia and gastritis. Eat in the upright position. Eat small bites and chew food thoroughly. Avoid eating too quickly and over-eating. Don't drink too much coffee. Do not take anti-inflammatory medications like ibuprofen (Motrin, Advil, and others) and naproxen (Aleve). Continue taking omeprazole (Prilosec) 40 mg twice a day. Seek medical attention if you have: * temperature above 101 * chest pain or trouble breathing * abdominal pain, nausea, vomiting * diarrhea, dark stools or bloody stools * any unanswered questions or concerns Call 911 if symptoms are severe. Call if you have any questions or problems. You can reach a [facility] hospitalist on duty at [facility] 24 hours a day by calling [phone]. Please take good care of yourself. Sunil Gomez . Current Hospital Diet Patient's current hospital diet: AHA Diet (Heart Healthy) Discharge Diet Recommended Diet: AHA Diet (Heart Healthy) Procedures Procedures Performed: EGD (UPPER ENDOSCOPY) WITH BIOPSY echocardiogram Pending Studies Studies pending at discharge: yes List of pending studies: biopsy results from EGD (upper endoscopy) Medical Emergencies . Who to Call and When: Medical Emergencies: If at any time you feel your situation is an emergency, please call 911 immediately. . Non-Emergent Contact Non-Emergency issues call your: Primary Care Provider, Director Call Center Sales, [employer] Supervisor, Hospital Doctor . . "Provider Documentation" section prepared by Sunil Gomez. . [place] Drug Monitoring Program Search Results: patient reviewed within database, no issues identified . Additional Copies To Adrian Dockery D.O.; Al Padron MD [facility]
== END 2018-07-03 16:36 | disposition home or self-care (01) | DRG 392 ==
LOC: EDBD 21:10 → C.EDC 21:12 → C.2T 07-01 00:06 → ENRESERV 07-01 00:15 → EDBEDREQ 07-01 00:27 → ENRESERV 07-01 13:04 → C.MS2W 07-01 14:23
PROVIDERS: ADMIT Internal Medicine; ATTEND Hospitalist
PROC: 0DB68ZX Excision of Stomach, Via Natural or Artificial Opening Endoscopic, Diagnostic (ICD-10-PCS; principal; 2018-07-03 09:06)
DX: K22.2 Esophageal obstruction (principal); K20.9 Esophagitis, unspecified; R07.89 Other chest pain; F31.9 Bipolar disorder, unspecified; K44.9 Diaphragmatic hernia without obstruction or gangrene; I25.10 Atherosclerotic heart disease of native coronary artery without angina pectoris; F12.11 Cannabis abuse, in remission; J44.9 Chronic obstructive pulmonary disease, unspecified; E11.9 Type 2 diabetes mellitus without complications; E78.5 Hyperlipidemia, unspecified; Z85.71 Personal history of Hodgkin lymphoma; Z83.3 Family history of diabetes mellitus; Z82.49 Family history of ischemic heart disease and other diseases of the circulatory system; Z95.5 Presence of coronary angioplasty implant and graft; Z95.0 Presence of cardiac pacemaker; Z92.3 Personal history of irradiation; R13.10 Dysphagia, unspecified; K29.70 Gastritis, unspecified, without bleeding; I10 Essential (primary) hypertension; E03.9 Hypothyroidism, unspecified